=== PATIENT | female | born 1960 | race Caucasian/White ===

== ENCOUNTER 2018-06-28 21:07 | Inpatient (IN) | payer BC, OTHER ==
[~2018-06-28] VITALS: Ht 162.6 cm; Wt 34.1 kg
[~2018-06-28 21:07] MED LIST: ATARAX 25MG25 MG; BACTROBAN15 GM TOP; CLINDAMYCIN HC150 MG PO; FIORINAL CAPSU1 EACH PO; LEVAQUIN500 MG PO; LIDOCAINE HCL 2% LOCAL INJ 5 ML SDV VIAL INJ ONE; PHENERGAN25 M2 RC; PHENYLEPHRINE HCL 1% 10 MG/ML VIAL ONE; PROPOFOL IV EMULSION 10 MG/ML 20 ML VIAL ONE; ROCURONIUM BROMIDE 10 MG/ML 5ML VIAL ONE; SEVOFLURANE INHAL SOLN 250 ML PEN BTL ONE; SUCCINYLCHOLINE 200 MG/10 ML SYR ONE; TYLENOL # 31 EA PO; XIFAXAN550 MG; Z.0.LASIX40 MG PO; Z.0.NEXIUM40 MG PO; [UNRECOGNIZED DRUG - OTHER] PO
--- OUTSIDE RECORDS SUMMARY | 2018-06-28 21:11 | XMS REPORT | Clinical Summary ---
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 Disp. Refills Start End Date Status Date promethazine (PHENERGAN) Take 25 mg by mouth every Active 25 MG tablet 6 (six) hours as needed for nausea or vomiting. auumvglzlv-meldcle-rsgkes Take 1 capsule by mouth Active ne (FIORINAL) 50-325-40 every 6 (six) hours as mg per capsule needed for migraine. GUAIFENESIN/DEXTROMETHORP Take 1 tablet by mouth 4 Active SANCHEZ (SAFE TUSSIN DM ORAL) (four) times a day as needed. diphenhydrAMINE Take 25 mg by mouth every Active (BENADRYL) 25 mg tablet 8 (eight) hours as needed for itching or sleep. propranolol (INDERAL) 10 Take 10 mg by mouth 2 07/12/20 Discontin MG tablet (two) times a day as 17 ued needed. spironolactone Take 25 mg by mouth 4 07/12/20 Discontin (ALDACTONE) 25 MG tablet (four) times a day. 17 ued torsemide (DEMADEX) 10 MG Take 10 mg by mouth 4 07/12/20 Discontin tablet (four) times a day. 17 ued riFAXimin (XIFAXAN) 550 Take 550 mg by mouth 07/12/20 Discontin mg tablet daily. 17 ued traMADol (ULTRAM) 50 mg Take 1 tablet (50 mg 30 tablet 0 07/12/20 07/22/20 tablet total) by mouth every 6 17 17 (six) hours as needed for moderate pain for up to 10 days. furosemide (LASIX) 40 mg Take 1 tablet (40 mg 30 tablet 0 07/12/20 08/11/20 tablet total) by mouth daily for 17 17 30 days. spironolactone Take 4 tablets (100 mg 120 tablet 0 07/12/20 08/11/20 (ALDACTONE) 25 MG tablet total) by mouth daily for 17 17 30 days. pantoprazole (PROTONIX) Take 1 tablet (40 mg 60 tablet 0 07/12/20 08/11/20 40 MG EC tablet total) by mouth 2 (two) 17 17 times a day for 30 days. riFAXimin (XIFAXAN) 550 Take 1 tablet (550 mg 60 tablet 0 07/12/20 08/11/20 mg tablet total) by mouth 2 (two) 17 17 times a day for 30 days. Active Problems Problem Noted Date Gastrointestinal hemorrhage with hematemesis 07/06/2017 Encounters Date Type Specialty Care Team Description 07/08/2017 Procedure Pass General Internal Medicine 07/07/2017 Anesthesia Surgical Intensive Care Pedro Mejia MD Event 07/07/2017 Procedure Pass Gastroenterology 07/07/2017 Surgery Gastroenterology Arturo Jung MD ESOPHAGOGASTRODUODENOSCOP Y (EGD) 07/06/2017 [facility] General Internal Medicine Jeniffer Marrero MD Gastrointestinal - Encounter Lock, Malaika Agustin MD hemorrhage with 07/12/2017 hematemesis (Primary Dx); Secondary biliary cirrhosis; Anemia, unspecified type after 06/27/2017 Immunizations Name Dates Previously Given Next Due Pneumococcal Conjugate 07/07/2017 [facility] Social History Tobacco Use Types Packs/Day Years Used Date Current Some Day Smoker 1 Alcohol Use Drinks/Week oz/Week Comments No Sex Assigned at Date Recorded Not on file Last Filed Vital Signs Vital Sign Reading Time Taken Blood Pressure 98/54 07/12/2017 8:48 AM CDT Pulse 72 07/12/2017 8:48 AM CDT Temperature 36.1 C (97 F) 07/12/2017 8:48 AM CDT Respiratory Rate 16 07/12/2017 8:48 AM CDT Oxygen Saturation 99% 07/12/2017 8:48 AM CDT Inhaled Oxygen - - Concentration Weight 43.9 kg (96 lb .2 oz) 07/12/2017 6:55 AM CDT Height 162.6 cm (5' 4") 07/06/2017 8:06 PM CDT Body Mass Index 16.6 07/12/2017 6:55 AM CDT Plan of Treatment Health Maintenance Due Date Last Done Comments CERVICAL CANCER SCREENING 01/13/1981 BREAST CANCER SCREENING 01/13/2010 COLON CANCER SCREENING 01/13/2010 SHINGRIX VACCINE (#1) 01/13/2010 INFLUENZA VACCINE 04/08/2018 Procedures Procedure Name Priority Date/Time Associated Diagnosis Comments TRANSFUSE CRYOPRECIPITATE STAT 05/13/2018 5:43 PM CDT TRANSFUSE CRYOPRECIPITATE STAT 05/13/2018 5:43 PM CDT TRANSFUSE CRYOPRECIPITATE STAT 05/13/2018 5:43 PM CDT TRANSFUSE CRYOPRECIPITATE STAT 05/13/2018 5:43 PM CDT TRANSFUSE RED BLOOD CELLS STAT 05/13/2018 5:43 PM CDT TRANSFUSE CRYOPRECIPITATE STAT 05/13/2018 5:43 PM CDT TRANSFUSE CRYOPRECIPITATE STAT 05/13/2018 5:43 PM CDT TRANSFUSE PLATELETS Routine 05/13/2018 5:43 PM CDT TRANSFUSE RED BLOOD CELLS Routine 05/13/2018 5:43 PM CDT TRANSFUSE RED BLOOD CELLS Routine 05/13/2018 5:43 PM CDT TRANSFUSE RED BLOOD CELLS STAT 05/13/2018 5:43 PM CDT TRANSFUSE RED BLOOD CELLS STAT 05/13/2018 5:43 PM CDT OR INSERT NON-TUNNEL CV Routine 08/06/2017 Gastrointestinal Results for this CATH 9:10 PM SUCTION PLATE [employer]ER hemorrhage with procedure are in the hematemesis results section. POC GLUCOSE Routine 07/12/2017 Results for this 8:41 AM CDT procedure are in the results section. SMEAR REVIEW Routine 07/12/2017 Results for this 6:02 AM CDT procedure are in the results section. PROTHROMBIN TIME WITH INR Routine 07/12/2017 Results for this 6:02 AM CDT procedure are in the results section. ZZESTIMATED GFR Routine 07/12/2017 Results for this 6:02 AM CDT procedure are in the results section. BASIC METABOLIC PANEL Routine 07/12/2017 Results for this 6:02 AM CDT procedure are in the results section. HC COMPLETE BLD COUNT Routine 07/12/2017 Results for this W/AUTO DIFF 6:02 AM CDT procedure are in the results section. POC GLUCOSE Routine 07/11/2017 Results for this 12:23 PM CDT procedure are in the results section. POC GLUCOSE Routine 07/11/2017 Results for this 8:07 AM CDT procedure are in the results section. SMEAR REVIEW Routine 07/11/2017 Results for this 5:30 AM CDT procedure are in the results section. PROTHROMBIN TIME WITH INR Routine 07/11/2017 Results for this 5:30 AM CDT procedure are in the results section. ZZESTIMATED GFR Routine 07/11/2017 Results for this 5:30 AM CDT procedure are in the results section. BASIC METABOLIC PANEL Routine 07/11/2017 Results for this 5:30 AM CDT procedure are in the results section. HC COMPLETE BLD COUNT Routine 07/11/2017 Results for this W/AUTO DIFF 5:30 AM CDT procedure are in the results section. XR PANOREX Routine 07/10/2017 Results for this 5:27 PM CDT procedure are in the results section. GRAM STAIN Routine 07/10/2017 Results for this 4:00 PM CDT procedure are in the results section. URINE CULTURE Routine 07/10/2017 Results for this 4:00 PM CDT procedure are in the results section. MANUAL DIFFERENTIAL Routine 07/10/2017 Results for this 4:11 AM CDT procedure are in the results section. ZZESTIMATED GFR Routine 07/10/2017 Results for this 4:11 AM CDT procedure are in the results section. PROTHROMBIN TIME WITH INR Routine 07/10/2017 Results for this 4:11 AM CDT procedure are in the results section. PARTIAL THROMBOPLASTIN Routine 07/10/2017 Results for this TIME (PTT) 4:11 AM CDT procedure are in the results section. PHOSPHORUS LEVEL Routine 07/10/2017 Results for this 4:11 AM CDT procedure are in the results section. MAGNESIUM LEVEL Routine 07/10/2017 Results for this 4:11 AM CDT procedure are in the results section. HEPATIC FUNCTION PANEL Routine 07/10/2017 Results for this 4:11 AM CDT procedure are in the results section. CBC WITH PLATELET AND Routine 07/10/2017 Results for this DIFFERENTIAL 4:11 AM CDT procedure are in the results section. BASIC METABOLIC PANEL Routine 07/10/2017 Results for this 4:11 AM CDT procedure are in the results section. POC GLUCOSE Routine 07/09/2017 Results for this 1:21 PM CDT procedure are in the results section. XR CHEST 1 VW PORTABLE STAT 07/09/2017 Results for this 7:34 AM CDT procedure are in the results section. SMEAR REVIEW Routine 07/09/2017 Results for this 12:37 AM CDT procedure are in the results section. ZZESTIMATED GFR Routine 07/09/2017 Results for this 12:37 AM CDT procedure are in the results section. LACTIC ACID LEVEL Routine 07/09/2017 Results for this 12:37 AM CDT procedure are in the results section. PARTIAL THROMBOPLASTIN Routine 07/09/2017 Results for this TIME (PTT) 12:37 AM CDT procedure are in the results section. PROTHROMBIN TIME WITH INR Routine 07/09/2017 Results for this 12:37 AM CDT procedure are in the results section. PHOSPHORUS LEVEL Routine 07/09/2017 Results for this 12:37 AM CDT procedure are in the results section. MAGNESIUM LEVEL Routine 07/09/2017 Results for this 12:37 AM CDT procedure are in the results section. HEPATIC FUNCTION PANEL Routine 07/09/2017 Results for this 12:37 AM CDT procedure are in the results section. HC COMPLETE BLD COUNT Routine 07/09/2017 Results for this W/AUTO DIFF 12:37 AM CDT procedure are in the results section. BASIC METABOLIC PANEL Routine 07/09/2017 Results for this 12:37 AM CDT procedure are in the results section. POC GLUCOSE Routine 07/08/2017 Results for this 9:44 PM CDT procedure are in the results section. MRI ABDOMEN W WO CONTRAST Routine 07/08/2017 Results for this 5:25 PM CDT procedure are in the results section. SMEAR REVIEW Timed 07/08/2017 Results for this 11:35 AM CDT procedure are in the results section. ZZESTIMATED GFR Timed 07/08/2017 Results for this 11:35 AM CDT procedure are in the results section. LACTIC ACID LEVEL Timed 07/08/2017 Results for this 11:35 AM CDT procedure are in the results section. FIBRINOGEN Timed 07/08/2017 Results for this 11:35 AM CDT procedure are in the results section. PARTIAL THROMBOPLASTIN Timed 07/08/2017 Results for this TIME (PTT) 11:35 AM CDT procedure are in the results section. PROTHROMBIN TIME WITH INR Timed 07/08/2017 Results for this 11:35 AM CDT procedure are in the results section. BASIC METABOLIC PANEL Timed 07/08/2017 Results for this 11:35 AM CDT procedure are in the results section. HC COMPLETE BLD COUNT Timed 07/08/2017 Results for this W/AUTO DIFF 11:35 AM CDT procedure are in the results section. XR CHEST 1 VW PORTABLE STAT 07/08/2017 Results for this 7:11 AM CDT procedure are in the results section. POC GLUCOSE Routine 07/08/2017 Results for this 4:54 AM CDT procedure are in the results section. ALPHA FETOPROTEIN Routine 07/08/2017 Results for this 3:44 AM CDT procedure are in the results section. SMEAR REVIEW Routine 07/08/2017 Results for this 3:25 AM CDT procedure are in the results section. THROMBOELASTOGRAPH Routine 07/08/2017 Results for this 3:25 AM CDT procedure are in the results section. ZZESTIMATED GFR Routine 07/08/2017 Results for this 3:25 AM CDT procedure are in the results section. PROTHROMBIN TIME WITH INR Routine 07/08/2017 Results for this 3:25 AM CDT procedure are in the results section. HEPATIC FUNCTION PANEL Routine 07/08/2017 Results for this 3:25 AM CDT procedure are in the results section. HC COMPLETE BLD COUNT Routine 07/08/2017 Results for this W/AUTO DIFF 3:25 AM CDT procedure are in the results section. BASIC METABOLIC PANEL Routine 07/08/2017 Results for this 3:25 AM CDT procedure are in the results section. MAGNESIUM LEVEL Routine 07/08/2017 Results for this 3:25 AM CDT procedure are in the results section. PHOSPHORUS LEVEL Routine 07/08/2017 Results for this 3:25 AM CDT procedure are in the results section. PARTIAL THROMBOPLASTIN Routine 07/08/2017 Results for this TIME (PTT) 3:25 AM CDT procedure are in the results section. HEPATITIS C VIRUS Routine 07/08/2017 Results for this QUANTITATIVE BY PCR 3:00 AM CDT procedure are in the results section. TRANSFUSE PLATELETS STAT 07/08/2017 2:18 AM CDT POC GLUCOSE Routine 07/08/2017 Results for this 12:32 AM CDT procedure are in the results section. SMEAR REVIEW STAT 07/07/2017 Results for this 9:35 PM CDT procedure are in the results section. THROMBOELASTOGRAPH STAT 07/07/2017 Results for this 9:35 PM CDT procedure are in the results section. HC COMPLETE BLD COUNT STAT 07/07/2017 Results for this W/AUTO DIFF 9:35 PM CDT procedure are in the results section. POC GLUCOSE Routine 07/07/2017 Results for this 9:11 PM CDT procedure are in the results section. US ABDOMINAL DOPPLER Routine 07/07/2017 Results for this 4:55 PM CDT procedure are in the results section. US ABDOMEN COMPLETE Routine 07/07/2017 Results for this 4:55 PM CDT procedure are in the results section. ESOPHAGOGASTRODUODENOSCOP 07/07/2017 Gastrointestinal Y (EGD) 4:30 PM CDT hemorrhage with hematemesis SMEAR REVIEW Timed 07/07/2017 Results for this 2:40 PM CDT procedure are in the results section. HC COMPLETE BLD COUNT Timed 07/07/2017 Results for this W/AUTO DIFF 2:40 PM CDT procedure are in the results section. POC GLUCOSE Routine 07/07/2017 Results for this 11:37 AM CDT procedure are in the results section. SMEAR REVIEW Timed 07/07/2017 Results for this 9:36 AM CDT procedure are in the results section. HC COMPLETE BLD COUNT Timed 07/07/2017 Results for this W/AUTO DIFF 9:36 AM CDT procedure are in the results section. XR CHEST 1 VW PORTABLE STAT 07/07/2017 Results for this 8:58 AM CDT procedure are in the results section. POC GLUCOSE Routine 07/07/2017 Results for this 8:46 AM CDT procedure are in the results section. POC GLUCOSE Routine 07/07/2017 Results for this 5:11 AM CDT procedure are in the results section. SMEAR REVIEW STAT 07/07/2017 Results for this 5:00 AM CDT procedure are in the results section. FIBRINOGEN STAT 07/07/2017 Results for this 5:00 AM CDT procedure are in the results section. PROTHROMBIN TIME WITH INR STAT 07/07/2017 Results for this 5:00 AM CDT procedure are in the results section. HC COMPLETE BLD COUNT STAT 07/07/2017 Results for this W/AUTO DIFF 5:00 AM CDT procedure are in the results section. BLOOD CULTURE, AEROBIC & Routine 07/07/2017 Results for this ANAEROBIC 5:00 AM CDT procedure are in the results section. ZZESTIMATED GFR STAT 07/07/2017 Results for this 3:35 AM CDT procedure are in the results section. LACTIC ACID LEVEL STAT 07/07/2017 Results for this 3:35 AM CDT procedure are in the results section. COMPREHENSIVE METABOLIC STAT 07/07/2017 Results for this PANEL 3:35 AM CDT procedure are in the results section. IONIZED CALCIUM STAT 07/07/2017 Results for this 3:35 AM CDT procedure are in the results section. PHOSPHORUS LEVEL STAT 07/07/2017 Results for this 3:35 AM CDT procedure are in the results section. MAGNESIUM LEVEL STAT 07/07/2017 Results for this 3:35 AM CDT procedure are in the results section. BLOOD CULTURE, AEROBIC & Routine 07/07/2017 Results for this ANAEROBIC 3:20 AM CDT procedure are in the results section. POC GLUCOSE Routine 07/07/2017 Results for this 1:17 AM CDT procedure are in the results section. OR CRITICAL CARE, ADDL 30 Routine 07/07/2017 Results for this MIN 1:05 AM CDT procedure are in the results section. OR CRITICAL CARE, E/M Routine 07/07/2017 Results for this 30-74 MINUTES 1:05 AM CDT procedure are in the results section. ECG 12-LEAD STAT 07/06/2017 Results for this 9:04 PM CDT procedure are in the results section. PREPARE RBC Timed 07/06/2017 Results for this 8:58 PM CDT procedure are in the results section. PREPARE CRYOPRECIPITATE Timed 07/06/2017 Results for this 8:58 PM CDT procedure are in the results section. PREPARE PLATELET PHERESIS Timed 07/06/2017 Results for this 8:58 PM CDT procedure are in the results section. PREPARE CRYOPRECIPITATE Timed 07/06/2017 Results for this 8:58 PM CDT procedure are in the results section. PREPARE PLATELET PHERESIS Timed 07/06/2017 Results for this 8:58 PM CDT procedure are in the results section. PREPARE RBC Timed 07/06/2017 Results for this 8:58 PM CDT procedure are in the results section. PREPARE RBC Timed 07/06/2017 8:58 PM CDT PREPARE RBC Timed 07/06/2017 Results for this 8:58 PM CDT procedure are in the results section. SMEAR REVIEW STAT 07/06/2017 Results for this 8:58 PM CDT procedure are in the results section. ZZESTIMATED GFR STAT 07/06/2017 Results for this 8:58 PM CDT procedure are in the results section. LIPASE LEVEL STAT 07/06/2017 Results for this 8:58 PM CDT procedure are in the results section. AMYLASE LEVEL STAT 07/06/2017 Results for this 8:58 PM CDT procedure are in the results section. LACTIC ACID LEVEL STAT 07/06/2017 Results for this 8:58 PM CDT procedure are in the results section. HEPATIC FUNCTION PANEL STAT 07/06/2017 Results for this 8:58 PM CDT procedure are in the results section. BASIC METABOLIC PANEL STAT 07/06/2017 Results for this 8:58 PM CDT procedure are in the results section. TYPE AND SCREEN Timed 07/06/2017 Results for this 8:58 PM CDT procedure are in the results section. PARTIAL THROMBOPLASTIN STAT 07/06/2017 Results for this TIME (PTT) 8:58 PM CDT procedure are in the results section. PROTHROMBIN TIME WITH INR STAT 07/06/2017 Results for this 8:58 PM CDT procedure are in the results section. HC COMPLETE BLD COUNT STAT 07/06/2017 Results for this W/AUTO DIFF 8:58 PM CDT procedure are in the results section. XR CHEST 1 VW PORTABLE STAT 07/06/2017 Results for this 8:43 PM CDT procedure are in the results section. after 06/27/2017 Results * Transfuse cryoprecipitate (05/13/2018 5:43 PM) Only the most recent of 6 results within the time period is included. * Transfuse platelets (05/13/2018 5:43 PM) Only the most recent of 2 results within the time period is included. * Transfuse RBC (05/13/2018 5:43 PM) Only the most recent of 5 results within the time period is included. * CENTRAL LINE (08/06/2017 9:10 PM) Narrative Performed At Dominique Tillman MD 08/06/20179:10 PM Central Line Insertion Performed by: TRANG CAROLINA Authorized by: MALAIKA BRITTON Consent: Consent obtained:Written Consent given by:Patient Risks discussed:Infection, arterial puncture, incorrect placement, nerve damage, pneumothorax and bleeding Alternatives discussed:No treatment and delayed treatment [place] protocol: Procedure explained and questions answered to patient or proxy's satisfaction: yes Relevant documents present and verified: yes Test results available and properly labeled: yes Imaging studies available: yes Required blood products, implants, devices, and special equipment available: yes Site/side marked: yes Immediately prior to procedure, a time out was called: yes Patient identity confirmed:Verbally with patient, arm band, provided demographic data and hospital-assigned identification number Pre-procedure details: Hand hygiene: Hand hygiene performed prior to insertion Sterile barrier technique: All elements of maximal sterile technique followed Skin preparation:ChloraPrep Anesthesia (see MAR for exact dosages): Anesthesia method:Local infiltration Local anesthetic:Lidocaine 1% w/o epi Procedure details: Catheter type:Triple lumen Catheter size:7 Fr Catheter length (cm):15 CM Catheter site: internal jugular vein Catheter Site Laterality:Right Landmarks identified: yes Ultrasound guidance: yes Sterile ultrasound techniques: Sterile gel and sterile probe covers were used Number of attempts:1 Successful placement: yes Post-procedure details: Post-procedure:Dressing applied and line sutured Assessment:Blood return through all ports, no pneumothorax on x-ray, placement verified by x-ray and free fluid flow Patient tolerance of procedure:Tolerated well, no immediate complications * POC glucose (07/12/2017 8:41 AM) Only the most recent of 12 results within the time period is included. POC glucose 106 (H) 65 - 99 mg/dL [facility] DEPARTMENT OF Comment: PATHOLOGY AND No Action Needed GENOMIC MEDICINE Meter ID: [id number] Burlap Roll Coverer: Jonathon Ortega Performing Organization Address [facility] [place], [place] Phone Number [facility] [place] [address] PATHOLOGY AND GENOMIC MEDICINE * Smear review (07/12/2017 6:02 AM) Only the most recent of 10 results within the time period is included. Platelet slide review Mkd decreased (A) [facility] DEPARTMENT OF PATHOLOGY AND GENOMIC MEDICINE Anisocytosis Moderate [facility] DEPARTMENT OF PATHOLOGY AND GENOMIC MEDICINE Polychromasia Moderate [facility] DEPARTMENT OF PATHOLOGY AND GENOMIC MEDICINE Ovalocytes Moderate [facility] DEPARTMENT OF PATHOLOGY AND GENOMIC MEDICINE Performing Organization Address [facility] Phone Number [address] [address] PATHOLOGY AND GENOMIC MEDICINE * Estimated GFR (07/12/2017 6:02 AM) Only the most recent of 8 results within the time period is included. GFR Non Af Amer >90 mL/min/1.73 m2 [facility] DEPARTMENT OF PATHOLOGY AND GENOMIC MEDICINE GFR Af Amer >90 mL/min/1.73 m2 [facility] DEPARTMENT OF Comment: PATHOLOGY AND Chronic kidney disease: <60 GENOMIC MEDICINE mL/min/1.73m2 Kidney failure: <15 mL/min/1.73m2 The estimated GFR is calculated from the IDMS-traceable Modification of Diet in Renal Disease Equation. The accuracy of the calculation is poor when the creatinine is normal. Calculated values >90 mL/min/1.73m2 are not reported. This equation has not been validated in children (<18 years), women, the elderly (>70 years), or ethnic groups other than Caucasians and Americans. Specimen Plasma specimen Performing Organization Address City/[facility] [place] [address] PATHOLOGY AND [facility] [facility] * Prothrombin time with INR (07/12/2017 6:02 AM) Only the most recent of 8 results within the time period is included. Prothrombin time 19.7 (H) 12.0 - 15.0 sec [facility] DEPARTMENT OF PATHOLOGY AND [facility] INR 1.6 [facility] DEPARTMENT OF Comment: PATHOLOGY AND The International Normalized GENOMIC MEDICINE Ratio (INR) is a therapeutic monitoring tool for patients who are stable on oral anticoagulant therapy. An INR of 2.0-3.0 is suggested for deep vein thrombosis/pulmonary embolism. Specimen Blood Performing Organization Address City/[facility] Phone Number [facility] OF [address] [place] [address] PATHOLOGY AND [facility] [facility] * CBC with platelet and differential (07/12/2017 6:02 AM) Only the most recent of 11 results within the time period is included. WBC 2.52 (L) 4.50 - 11.00 k/uL [facility] DEPARTMENT OF PATHOLOGY AND GENOMIC MEDICINE RBC 3.48 (L) 4.20 - 5.50 m/uL [facility] DEPARTMENT OF PATHOLOGY AND GENOMIC MEDICINE HGB 9.2 (L) 12.0 - 16.0 g/dL [facility] DEPARTMENT OF PATHOLOGY AND GENOMIC MEDICINE HCT 28.9 (L) 37.0 - 47.0 % [facility] DEPARTMENT OF PATHOLOGY AND GENOMIC MEDICINE MCV 83.0 82.0 - 100.0 fL [facility] DEPARTMENT OF PATHOLOGY AND GENOMIC MEDICINE MCH 26.4 (L) 27.0 - 34.0 pg [facility] DEPARTMENT OF PATHOLOGY AND GENOMIC MEDICINE MCHC 31.8 31.0 - 37.0 g/dL [facility] DEPARTMENT OF PATHOLOGY AND GENOMIC MEDICINE RDW - SD 61.7 (H) 37.0 - 55.0 fL [facility] DEPARTMENT OF PATHOLOGY AND GENOMIC MEDICINE MPV SEE COMMENTComment: No report 8.8 - 13.2 fL [facility] DEPARTMENT OF PATHOLOGY AND GENOMIC MEDICINE Platelet count 37 (L) 150 - 400 k/uL [facility] DEPARTMENT OF PATHOLOGY AND GENOMIC MEDICINE Nucleated RBC 0.00 /100 WBC [facility] DEPARTMENT OF PATHOLOGY AND GENOMIC MEDICINE Neutrophils 67.0 39.0 - 69.0 % [facility] DEPARTMENT OF PATHOLOGY AND GENOMIC MEDICINE Lymphocytes 17.1 (L) 25.0 - 45.0 % [facility] DEPARTMENT OF PATHOLOGY AND GENOMIC MEDICINE Monocytes 11.5 (H) 0.0 - 10.0 % [facility] DEPARTMENT OF PATHOLOGY AND GENOMIC MEDICINE Eosinophils 3.2 0.0 - 5.0 % [facility] DEPARTMENT OF PATHOLOGY AND GENOMIC MEDICINE Basophils 0.8 0.0 - 1.0 % [facility] DEPARTMENT OF PATHOLOGY AND GENOMIC MEDICINE Immature granulocytes 0.4Comment: "Immature 0.0 - 1.0 % [facility] DEPARTMENT OF granulocytes" (promyelocytes, PATHOLOGY AND myelocytes, metamyelocytes) [facility] Specimen Blood Performing Organization Address City/State/Zipcode Phone Number [facility] DEPARTMENT OF [address] [place] [address] PATHOLOGY AND GENOMIC MEDICINE * Basic metabolic panel (07/12/2017 6:02 AM) Only the most recent of 7 results within the time period is included. Sodium 142 135 - 148 mEq/L [facility] [facility] Potassium 3.9 3.5 - 5.0 mEq/L [facility] DEPARTMENT OF PATHOLOGY AND GENOMIC MEDICINE Chloride 105 98 - 112 mEq/L [facility] DEPARTMENT OF PATHOLOGY AND GENOMIC MEDICINE CO2 24 24 - 31 mEq/L [facility] DEPARTMENT OF PATHOLOGY AND GENOMIC MEDICINE Anion gap 13 7 - 15 mEq/L [facility] DEPARTMENT OF Comment: PATHOLOGY AND Starting from December [facility] , anion gap calculation no longer incorporates potassium. Please note the change. BUN 13 6 - 20 mg/dL [facility] DEPARTMENT OF PATHOLOGY AND GENOMIC MEDICINE Creatinine 0.6 0.5 - 0.9 mg/dL [facility] DEPARTMENT OF PATHOLOGY AND GENOMIC MEDICINE Glucose 128 (H) 65 - 99 mg/dL [facility] DEPARTMENT OF PATHOLOGY AND GENOMIC MEDICINE Calcium 8.0 (L) 8.3 - 10.2 mg/dL [facility] DEPARTMENT OF PATHOLOGY AND GENOMIC MEDICINE Specimen Plasma specimen Performing Organization Address City/[facility]/Zipcode Phone Number [facility] DEPARTMENT OF [address] [place] [address] PATHOLOGY AND GENOMIC MEDICINE * XR Panorex (07/10/2017 5:27 PM) Narrative Performed At EXAMINATION:XR PANOREX [facility] CLINICAL HISTORY:evaluate dental decay IMPRESSION: There are multiple missing teeth. There is a nonspecific periapical lucencies around the remaining left maxillary anterior molar tooth. The study is limited due to motion artifact. [id number] Procedure Note Interface, Radiology Results Incoming - 07/10/2017 5:41 PM CDT EXAMINATION: XR PANOREX CLINICAL HISTORY: evaluate dental decay IMPRESSION: There are multiple missing teeth. There is a nonspecific periapical lucencies around the remaining left maxillary anterior molar tooth. The study is limited due to motion artifact. [id number] Performing Organization Address City/[facility]/Zipcode Phone Number [facility] [address] [place] [address] * Gram stain (07/10/2017 4:00 PM) Gram stain result No WBC's or organisms seen. [facility] DEPARTMENT OF Comment: PATHOLOGY AND Specimen Information GENOMIC MEDICINE Specimen Source: Urine Specimen Site: See UA Specimen Urine Performing Organization Address City/[facility]/Zipcode Phone Number [facility] [place] [address] PATHOLOGY AND GENOMIC MEDICINE * Urine culture (07/10/2017 4:00 PM) Urine culture isolate Gram positive joel [facility] DEPARTMENT OF <10-1 cfu/ml PATHOLOGY AND (A) GENOMIC MEDICINE Comment: Specimen Information Specimen Source: Urine Specimen Site: See UA Specimen Urine Performing Organization Address [facility]/Zipcode Phone Number [facility] [place] [address] PATHOLOGY AND GENOMIC MEDICINE * Manual differential (07/10/2017 4:11 AM) Manual differential PERFORMED [facility] DEPARTMENT OF PATHOLOGY AND GENOMIC MEDICINE Neutrophils 80.0 (H) 39.0 - 69.0 % [facility] DEPARTMENT OF PATHOLOGY AND GENOMIC MEDICINE Lymphocytes 11.0 (L) 25.0 - 45.0 % [facility] DEPARTMENT OF PATHOLOGY AND GENOMIC MEDICINE Monocytes 4.0 0.0 - 10.0 % [facility] DEPARTMENT OF PATHOLOGY AND GENOMIC MEDICINE Eosinophils 4.0 0.0 - 5.0 % [facility] DEPARTMENT OF PATHOLOGY AND GENOMIC MEDICINE Basophils 1.0 0.0 - 1.0 % [facility] DEPARTMENT OF PATHOLOGY AND GENOMIC MEDICINE Metamyelocytes 0 % [facility] DEPARTMENT OF PATHOLOGY AND GENOMIC MEDICINE Promyelocytes 0 % [facility] DEPARTMENT OF PATHOLOGY AND GENOMIC MEDICINE Platelet slide review Mkd decreased (A) [facility] DEPARTMENT OF PATHOLOGY AND GENOMIC MEDICINE Anisocytosis Moderate [facility] DEPARTMENT OF PATHOLOGY AND GENOMIC MEDICINE Polychromasia Moderate [facility] DEPARTMENT OF PATHOLOGY AND GENOMIC MEDICINE Tear drop cells Occasional [facility] DEPARTMENT OF PATHOLOGY AND GENOMIC MEDICINE Schistocytes Occasional [facility] DEPARTMENT OF PATHOLOGY AND GENOMIC MEDICINE Ovalocytes Moderate [facility] DEPARTMENT OF PATHOLOGY AND GENOMIC MEDICINE Acanthocytes Occasional [facility] DEPARTMENT OF PATHOLOGY AND GENOMIC MEDICINE Performing Organization Address [facility] [place], [place] [address] PATHOLOGY AND GENOMIC MEDICINE * Partial thromboplastin time, activated (07/10/2017 4:11 AM) Only the most recent of 5 results within the time period is included. PTT 32.8 23.0 - 36.0 sec [facility] DEPARTMENT OF Comment: PATHOLOGY AND PTT therapeutic range for [facility] unfractionated heparin is 61.0-112.0 seconds which corresponds to Anti-Xa 0.3-0.7 U/ml. Specimen Blood Performing Organization Address [facility] [place] [address] PATHOLOGY AND [facility] MEDICINE * Phosphorus level (07/10/2017 4:11 AM) Only the most recent of 4 results within the time period is included. Phosphorus 1.8 (L) 2.4 - 4.5 mg/dL [facility] DEPARTMENT OF PATHOLOGY AND GENOMIC MEDICINE Specimen Plasma specimen Performing Organization Address City/[facility] [place] [address] PATHOLOGY AND [facility] MEDIC[facility] * Magnesium level (07/10/2017 4:11 AM) Only the most recent of 4 results within the time period is included. Magnesium 2.0 1.6 - 2.6 mg/dL [facility] DEPARTMENT OF PATHOLOGY AND GENOMIC MEDICINE Specimen Plasma specimen Performing Organization Address [facility] [place] [address] PATHOLOGY AND GENOMIC MEDICINE * Hepatic function panel (07/10/2017 4:11 AM) Only the most recent of 4 results within the time period is included. Albumin 2.9 (L) 3.5 - 5.0 g/dL [facility] DEPARTMENT OF PATHOLOGY AND GENOMIC MEDICINE Total bilirubin 1.1 0.0 - 1.2 mg/dL [facility] DEPARTMENT OF PATHOLOGY AND GENOMIC MEDICINE Bilirubin direct 0.4 (H) 0.0 - 0.3 mg/dL [facility] DEPARTMENT OF PATHOLOGY AND GENOMIC MEDICINE Alkaline phosphatase 52 35 - 104 U/L [facility] DEPARTMENT OF PATHOLOGY AND GENOMIC MEDICINE Protein 5.7 (L) 6.3 - 8.3 g/dL [facility] DEPARTMENT OF Comment: PATHOLOGY AND [place] GENOMIC MEDICINE 4.6-7.0 g/dL 1 week 4.4-7.6 g/dL 7 months-1year 5.1-7.3 g/dL 1-2 years5.6-7 .5 g/dL >3 years6.0-8 .0 g/dL 18-150 6.3-8.3 g/dL ALT 11 5 - 50 U/L [facility] DEPARTMENT OF PATHOLOGY AND GENOMIC MEDICINE AST 23 10 - 35 U/L [facility] DEPARTMENT OF PATHOLOGY AND GENOMIC MEDICINE Specimen Plasma specimen Performing Organization Address [facility] Phone Number [facility] OF [address] [place] [address] PATHOLOGY AND GENOMIC MEDICINE * XR Chest 1 Vw Portable (07/09/2017 7:34 AM) Only the most recent of 4 results within the time period is included. Narrative Performed At EXAMINATION: XR CHEST 1 VW PORTABLE [facility] INDICATION: Ventilator Patient, right IJ CVC placement COMPARISON: 07/08/2017 IMPRESSION: Right jugular venous catheter with tip near the superior cavoatrial junction. No pneumothorax. Stable vascular congestion and interstitial opacities in the lungs probably representing edema. Cardiac silhouette is unchanged. No pneumothorax. [id number] Procedure Note Interface, Radiology Results Incoming - 07/09/2017 7:40 AM CDT EXAMINATION: XR CHEST 1 VW PORTABLE INDICATION: Ventilator Patient, right IJ CVC placement COMPARISON: 07/08/2017 IMPRESSION: Right jugular venous catheter with tip near the superior cavoatrial junction. No pneumothorax. Stable vascular congestion and interstitial opacities in the lungs probably representing edema. Cardiac silhouette is unchanged. No pneumothorax. [id number] Performing Organization Address City/State/Zipcode Phone Number [facility] [address] [place] [address] * Lactic acid level (07/09/2017 12:37 AM) Only the most recent of 4 results within the time period is included. Lactic acid 1.3 0.5 - 2.2 mmol/L [facility] DEPARTMENT OF PATHOLOGY AND GENOMIC MEDICINE Specimen Plasma specimen Performing Organization Address City/[facility]/Zipcode Phone Number [facility] DEPARTMENT OF [address] [place] [address] PATHOLOGY AND GENOMIC MEDICINE * MRI Abdomen W Wo Contrast (07/08/2017 5:25 PM) Narrative Performed At [facility] EXAMINATION:MRI ABDOMEN W WO CONTRAST CLINICAL HISTORY:cirrhosisPV thrombosis COMPARISON:December 27, 2014 MRI, July 07, 2017 ultrasound TECHNIQUE: Multiplanar, multisequence MRI of the abdomen with and without intravenous gadolinium. FINDINGS: Liver shrunken and cirrhotic. There is no suspicious hepatic mass. Stable 2 cm T2 hyperintense lesion in segment 2 is likely hemangioma. Chronic occlusion of intrahepatic portal vein segments again demonstrated. Dilated main portal vein also now shows a small nonocclusive thrombus distally. A tiny splenic vein clot is also present. There are very large varices including splenorenal shunt. Spleen is markedly enlarged. There is moderate ascites and small pleural effusions. Gallbladder wall thickening is nonspecific in setting of cirrhosis and similar to prior. No significant biliary dilatation. Stable mild fullness of the pancreatic duct. Pancreas is atrophic. No renal or adrenal mass. Increased anasarca. IMPRESSION: 1.Liver cirrhosis without evidence of HCC. 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 Small nonocclusive thrombus in the distal main portal vein near the hilum. [facility]-[id number] Procedure Note Interface, Radiology Results Incoming - 07/08/2017 6:26 PM CDT EXAMINATION: MRI ABDOMEN W WO CONTRAST CLINICAL HISTORY: cirrhosis PV thrombosis COMPARISON: December 27, 2014 MRI, July 07, 2017 ultrasound TECHNIQUE: Multiplanar, multisequence MRI of the abdomen with and without intravenous gadolinium. FINDINGS: Liver shrunken and cirrhotic. There is no suspicious hepatic mass. Stable 2 cm T2 hyperintense lesion in segment 2 is likely hemangioma. Chronic occlusion of intrahepatic portal vein segments again demonstrated. Dilated main portal vein also now shows a small nonocclusive thrombus distally. A tiny splenic vein clot is also present. There are very large varices including splenorenal shunt. Spleen is markedly enlarged. There is moderate ascites and small pleural effusions. Gallbladder wall thickening is nonspecific in setting of cirrhosis and similar to prior. No significant biliary dilatation. Stable mild fullness of the pancreatic duct. Pancreas is atrophic. No renal or adrenal mass. Increased anasarca. IMPRESSION: 1. Liver cirrhosis without evidence of HCC. 2. 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 Small nonocclusive thrombus in the distal main portal vein near the hilum. [facility]-[id number] Performing Organization Address City/[facility]/[place] [address] * Fibrinogen (07/08/2017 11:35 AM) Only the most recent of 2 results within the time period is included. Fibrinogen 411 200 - 450 mg/dL [facility] DEPARTMENT OF PATHOLOGY AND [facility] [facility]ICINE Specimen Blood Performing Organization Address [facility] [place] [address] PATHOLOGY AND [employer] [facility] * Alpha fetoprotein (07/08/2017 3:44 AM) Alpha fetoprotein 1.7 0.0 - 8.3 ng/mL [facility] DEPARTMENT OF Comment: PATHOLOGY AND The Valarie 8000 AFP immunoassay [facility] was used. Results obtained with different assay methods or kits should not be used interchangeably and may be different. Specimen Serum Performing Organization Address [facility] [place] [address] PATHOLOGY AND [facility] [facility]IC[facility] * Thromboelastograph (07/08/2017 3:25 AM) Only the most recent of 2 results within the time period is included. TEG R time 4.4 min [facility] DEPARTMENT OF PATHOLOGY AND GENOMIC MEDICINE TEG K time 4.2 min [facility] DEPARTMENT OF PATHOLOGY AND GENOMIC MEDICINE TEG angle 54.0 Deg [facility] DEPARTMENT OF PATHOLOGY AND GENOMIC MEDICINE TEG max amplitude 44.1 mm [facility] DEPARTMENT OF PATHOLOGY AND GENOMIC MEDICINE TEG coagulation index -2.70 Index [facility] DEPARTMENT OF PATHOLOGY AND GENOMIC MEDICINE TEG fibrinolysis/30 0.0 % [facility] DEPARTMENT OF Comment: PATHOLOGY AND Reference Ranges for TEG: [facility] Test: UnitsKaoli n:Citrate Kaolin: Rmin 3.7-8.3 2.5-7.5 Kmin 0.5-3.7 0.8-2.8 AngleDeg 46.8-73.6 55.2-78.4 MA mm54.5-72. 5 50.6-69.4 Gd/sc [id number] CI Index-3.0 - 3.0-3.0 - 3.0 LY30 % 0.0 - 7.5 0.0 - 7.5 Specimen description, TEG OTHER [facility] DEPARTMENT OF PATHOLOGY AND GENOMIC MEDICINE Sample type, TEG CK [facility] DEPARTMENT OF PATHOLOGY AND GENOMIC MEDICINE TEG SP time 4.0 min [facility] DEPARTMENT OF PATHOLOGY AND GENOMIC MEDICINE TEG G 3,943.5 d/sc [facility] DEPARTMENT OF PATHOLOGY AND GENOMIC MEDICINE Specimen Plasma specimen Performing Organization Address City/[facility] Phone Number [facility] [place] [address] PATHOLOGY AND GENOMIC MEDICINE * Hepatitis C virus quantitative by PCR (07/08/2017 3:00 AM) Hepatitis C quantitative, Not-Detected Not-Detected IU/mL [facility] DEPARTMENT OF PCR PATHOLOGY AND GENOMIC MEDICINE Hepatitis C quantitative, See link below for PDF Lab [facility] DEPARTMENT OF PCR ReportComment: Case Number: PATHOLOGY AND [id number] GENOMIC MEDICINE Specimen Blood Performing Organization Address [facility] [place] [place] [address] PATHOLOGY AND GENOMIC MEDICINE * US Abdominal Doppler (07/07/2017 4:55 PM) Narrative Performed At EXAMINATION:US ABDOMINAL DOPPLER [facility] CLINICAL HISTORY:cirrhosis COMPARISON:None. TECHNIQUE: White scale, color Doppler and spectral waveform analysis of the hepatic vasculature. IMPRESSION: PORTAL VEIN:Main portal vein measures 1.5 cm, and appears dilated and tortuous. There is partial thrombus within the main portal vein.Main, right and left portal veins are patent with appropriate hepatopedal flow. HEPATIC VEINS:The middle, right and left hepatic veins and IVC are patent and demonstrate acceptable waveforms. There is dilatation of the IVC and hepatic veins suggesting right heart congestion. HEPATIC ARTERIES:The right and left hepatic arteries are identified with appropriate waveforms. SPLENIC ARTERY AND VEIN AND SMV:Splenic artery and vein and SMV are identified and are patent. Procedure Note [facility], Radiology Results Incoming - 07/07/2017 5:25 PM CDT EXAMINATION: US ABDOMINAL DOPPLER CLINICAL HISTORY: cirrhosis COMPARISON: None. TECHNIQUE: White scale, color Doppler and spectral waveform analysis of the hepatic vasculature. IMPRESSION: PORTAL VEIN: Main portal vein measures 1.5 cm, and appears dilated and tortuous. There is partial thrombus within the main portal vein. Main, right and left portal veins are patent with appropriate hepatopedal flow. HEPATIC VEINS: The middle, right and left hepatic veins and IVC are patent and demonstrate acceptable waveforms. There is dilatation of the IVC and hepatic veins suggesting right heart congestion. HEPATIC ARTERIES: The right and left hepatic arteries are identified with appropriate waveforms. SPLENIC ARTERY AND VEIN AND SMV: Splenic artery and vein and SMV are identified and are patent. Performing Organization Address City/State/Zipcode Phone Number [facility] [address] [place] [address] * US Abdomen Complete (07/07/2017 4:55 PM) Narrative Performed At EXAM: US ABDOMEN COMPLETE [facility] CLINICAL DATA:CIRRHOSIS COMPARISON: NONE. FINDINGS: 1.Visualized portions of the proximal pancreas appear intact. Intrahepatic IVC is patent. Abdominal aorta is partially seen and nonaneurysmal. 2.Liver echogenicity is heterogeneous. No focal lesions are noted. Gallbladder is distended, without stones. Sludge is noted. Gallbladder wall is thickened circumferentially in the setting of ascites. Common duct is 6 mm. 3.Kidneys measure 9 to 10 cm in length each with no mass or hydronephrosis. Spleen is enlarged measuring 18.1 cm in length. IMPRESSION: 1. Ascites and splenomegaly with heterogeneous cirrhotic appearing liver. Nonspecific appearance of gallbladder wall thickening. [facility]-[id number] Procedure Note Interface, Radiology Results Incoming - 07/07/2017 5:21 PM CDT EXAM: US ABDOMEN COMPLETE CLINICAL DATA: CIRRHOSIS COMPARISON: NONE. FINDINGS: 1. Visualized portions of the proximal pancreas appear intact. Intrahepatic IVC is patent. Abdominal aorta is partially seen and nonaneurysmal. 2. Liver echogenicity is heterogeneous. No focal lesions are noted. Gallbladder is distended, without stones. Sludge is noted. Gallbladder wall is thickened circumferentially in the setting of ascites. Common duct is 6 mm. 3. Kidneys measure 9 to 10 cm in length each with no mass or hydronephrosis. Spleen is enlarged measuring 18.1 cm in length. IMPRESSION: 1. Ascites and splenomegaly with heterogeneous cirrhotic appearing liver. Nonspecific appearance of gallbladder wall thickening. [facility]-[id number] Performing Organization Address [facility]/Zipcode Phone Number [address] [address] * Blood culture, aerobic & anaerobic (07/07/2017 5:00 AM) Only the most recent of 2 results within the time period is included. Blood culture isolate No growth after 5 days of [facility] DEPARTMENT OF incubation. PATHOLOGY AND Comment: GENOMIC MEDICINE Specimen Information Specimen Source: Blood Specimen Site: Antecubital Right Specimen Blood Performing Organization Address City/[facility] Phone Number [address] [address] PATHOLOGY AND GENOMIC MEDICINE * Ionized calcium (07/07/2017 3:35 AM) pH 7.53 [facility] DEPARTMENT OF PATHOLOGY AND GENOMIC MEDICINE Ionized calcium 1.03 (L) 1.11 - 1.32 mmol/L [facility] DEPARTMENT OF PATHOLOGY AND GENOMIC MEDICINE Specimen Plasma specimen Performing Organization Address [facility] [place] [address] PATHOLOGY AND GENOMIC MEDICINE * Comprehensive metabolic panel (07/07/2017 3:35 AM) Sodium 140 135 - 148 mEq/L [facility] DEPARTMENT OF PATHOLOGY AND GENOMIC MEDICINE Potassium 3.9 3.5 - 5.0 mEq/L [facility] DEPARTMENT OF PATHOLOGY AND GENOMIC MEDICINE Chloride 109 98 - 112 mEq/L [facility] DEPARTMENT OF PATHOLOGY AND GENOMIC MEDICINE CO2 20 (L) 24 - 31 mEq/L [facility] DEPARTMENT OF PATHOLOGY AND GENOMIC MEDICINE Anion gap 11 7 - 15 mEq/L [facility] DEPARTMENT OF Comment: PATHOLOGY AND Starting from December GENOMIC MEDICINE , anion gap calculation no longer incorporates potassium. Please note the change. BUN 26 (H) 6 - 20 mg/dL [facility] DEPARTMENT OF PATHOLOGY AND GENOMIC MEDICINE Creatinine 0.7 0.5 - 0.9 mg/dL [facility] DEPARTMENT OF PATHOLOGY AND GENOMIC MEDICINE Glucose 103 (H) 65 - 99 mg/dL [facility] DEPARTMENT OF PATHOLOGY AND GENOMIC MEDICINE Calcium 7.2 (L) 8.3 - 10.2 mg/dL [facility] DEPARTMENT OF PATHOLOGY AND GENOMIC MEDICINE Protein 4.8 (L) 6.3 - 8.3 g/dL [facility] DEPARTMENT OF Comment: PATHOLOGY AND [place] GENOMIC MEDICINE 4.6-7.0 g/dL 1 week 4.4-7.6 g/dL 7 months-1year 5.1-7.3 g/dL 1-2 years5.6-7 .5 g/dL >3 years6.0-8 .0 g/dL 18-150 6.3-8.3 g/dL Albumin 2.5 (L) 3.5 - 5.0 g/dL [facility] DEPARTMENT OF PATHOLOGY AND GENOMIC MEDICINE A/G ratio 1.1 0.7 - 3.8 [facility] DEPARTMENT OF PATHOLOGY AND GENOMIC MEDICINE Alkaline phosphatase 33 (L) 35 - 104 U/L [facility] DEPARTMENT OF PATHOLOGY AND GENOMIC MEDICINE AST 22 10 - 35 U/L [facility] DEPARTMENT OF PATHOLOGY AND GENOMIC MEDICINE ALT 10 5 - 50 U/L [facility] DEPARTMENT OF PATHOLOGY AND GENOMIC MEDICINE Total bilirubin 0.7 0.0 - 1.2 mg/dL [facility] DEPARTMENT OF PATHOLOGY AND GENOMIC MEDICINE Specimen Plasma specimen Performing Organization Address City/State/Zipcode Phone Number [facility] DEPARTMENT OF [address] [place] [address] PATHOLOGY AND GENOMIC MEDICINE * CRITICAL CARE (07/07/2017 1:05 AM) Narrative Performed At Jenifferevin Marrero MD 07/07/20171:05 AM Critical Care Performed by: JENIFFER MARRERO Authorized by: JENIFFER MARRERO Critical care provider statement: Critical care time (minutes):83 Critical care time was exclusive of:Separately billable procedures and treating other patients and teaching time Critical care was necessary to treat or prevent imminent or life-threatening deterioration of the following conditions:Circulatory failure and hepatic failure Critical care was time spent personally by me on the following activities:Development of treatment plan with patient or surrogate, discussions with consultants, discussions with primary provider, evaluation of patient's response to treatment, examination of patient, interpretation of cardiac output measurements, obtaining history from patient or surrogate, ordering and performing treatments and interventions, ordering and review of laboratory studies, ordering and review of radiographic studies, pulse oximetry, re-evaluation of patient's condition and review of old charts Dave 'yes' if you are taking over critical care for this patient from another provider.: no Comments: Pt with cirrhosis and melena and hematemasis- Protonix 80mg bolus, 8mg/hr infusion, Octreotide 75mcg bolus and 75mcg/hr infusion, 2 units PRBC transfused, IV ceftriaxone, liver consult, ICU consult, admitted for endoscopy and further management, IVF bolus * ECG 12 lead (07/06/2017 9:04 PM) Ventricular rate 92 [facility] MUSE Atrial rate 92 [facility] MUSE OR interval 138 [facility] MUSE QRSD interval 86 [facility] MUSE QT interval 390 [facility] MUSE QTC interval 482 [facility] MUSE P axis 1 59 [facility] MUSE QRS axis 1 4 [facility] MUSE T wave axis 58 [facility] MUSE EKG impression Normal sinus [facility] MUSE rhythm-Nonspecific ST and T wave abnormality-Prolonged QT-Abnormal ECG-In automated comparison with ECG of -DEC-2014 20:25,-No significant change was found- Performing Organization Address City/[facility] Phone Number [place] [phone] * Prepare platelet pheresis, 1 Units (07/06/2017 8:58 PM) Only the most recent of 2 results within the time period is included. Product name Apheresis PLT, Leukored IRR #2 [facility] DEPARTMENT OF PATHOLOGY AND GENOMIC MEDICINE Unit number [id number] [facility] DEPARTMENT OF PATHOLOGY AND GENOMIC MEDICINE Product code [id number] [facility] DEPARTMENT OF PATHOLOGY AND GENOMIC MEDICINE Dispense status Transfused [facility] DEPARTMENT OF PATHOLOGY AND GENOMIC MEDICINE Blood expiration date [id number] [facility] DEPARTMENT OF PATHOLOGY AND GENOMIC MEDICINE Blood type code 5100 [facility] DEPARTMENT OF PATHOLOGY AND GENOMIC MEDICINE Blood type O POSITIVE [facility] DEPARTMENT OF PATHOLOGY AND GENOMIC MEDICINE Performing Organization Address City/[facility] Phone Number [address] [address] PATHOLOGY AND GENOMIC MEDICINE * Prepare cryoprecipitate, 20 Units (07/06/2017 8:58 PM) Only the most recent of 2 results within the time period is included. Product name Pooled Cryoprecipitate Thawed [facility] DEPARTMENT OF PATHOLOGY AND GENOMIC MEDICINE Unit number [id number] [facility] DEPARTMENT OF PATHOLOGY AND GENOMIC MEDICINE Product code [id number] [facility] DEPARTMENT OF PATHOLOGY AND GENOMIC MEDICINE Dispense status Transfused [facility] DEPARTMENT OF PATHOLOGY AND GENOMIC MEDICINE Blood expiration date [id number] [facility] DEPARTMENT OF PATHOLOGY AND GENOMIC MEDICINE Blood type code 6200 [facility] DEPARTMENT OF PATHOLOGY AND GENOMIC MEDICINE Blood type A POSITIVE [facility] DEPARTMENT OF PATHOLOGY AND GENOMIC MEDICINE Product name Pooled Cryoprecipitate Thawed [facility] DEPARTMENT OF PATHOLOGY AND GENOMIC MEDICINE Unit number [id number] [facility] DEPARTMENT OF PATHOLOGY AND GENOMIC MEDICINE Product code [id number] [facility] DEPARTMENT OF PATHOLOGY AND GENOMIC MEDICINE Dispense status Transfused [facility] DEPARTMENT OF PATHOLOGY AND GENOMIC MEDICINE Blood expiration date [id number] [facility] DEPARTMENT OF PATHOLOGY AND GENOMIC MEDICINE Blood type code 6200 [facility] DEPARTMENT OF PATHOLOGY AND GENOMIC MEDICINE Blood type A POSITIVE [facility] DEPARTMENT OF PATHOLOGY AND GENOMIC MEDICINE Product name Pooled Cryoprecipitate Thawed [facility] DEPARTMENT OF PATHOLOGY AND GENOMIC MEDICINE Unit number [id number] [facility] DEPARTMENT OF PATHOLOGY AND GENOMIC MEDICINE Product code [id number] [facility] DEPARTMENT OF PATHOLOGY AND GENOMIC MEDICINE Dispense status Transfused [facility] DEPARTMENT OF PATHOLOGY AND GENOMIC MEDICINE Blood expiration date [id number] [facility] DEPARTMENT OF PATHOLOGY AND GENOMIC MEDICINE Blood type code 6200 [facility] DEPARTMENT OF PATHOLOGY AND GENOMIC MEDICINE Blood type A POSITIVE [facility] DEPARTMENT OF PATHOLOGY AND GENOMIC MEDICINE Product name Pooled Cryoprecipitate Thawed [facility] DEPARTMENT OF PATHOLOGY AND GENOMIC MEDICINE Unit number [id number] [facility] DEPARTMENT OF PATHOLOGY AND GENOMIC MEDICINE Product code [id number] [facility] DEPARTMENT OF PATHOLOGY AND GENOMIC MEDICINE Dispense status Transfused [facility] DEPARTMENT OF PATHOLOGY AND GENOMIC MEDICINE Blood expiration date [id number] [facility] DEPARTMENT OF PATHOLOGY AND GENOMIC MEDICINE Blood type code 6200 [facility] DEPARTMENT OF PATHOLOGY AND GENOMIC MEDICINE Blood type A POSITIVE [facility] DEPARTMENT OF PATHOLOGY AND GENOMIC MEDICINE Specimen Blood Performing Organization Address City/State/Zipcode Phone Number [facility] DEPARTMENT OF [address] [place] [phone] PATHOLOGY AND GENOMIC MEDICINE * Prepare RBC, 1 Units (07/06/2017 8:58 PM) Only the most recent of 3 results within the time period is included. Product name Red Cells AS1 Leukored Irrad [facility] DEPARTMENT OF PATHOLOGY AND GENOMIC MEDICINE Unit number [id number] [facility] DEPARTMENT OF PATHOLOGY AND GENOMIC MEDICINE Product code [id number] [facility] DEPARTMENT OF PATHOLOGY AND GENOMIC MEDICINE Dispense status Transfused [facility] DEPARTMENT OF PATHOLOGY AND GENOMIC MEDICINE Blood expiration date [id number] [facility] DEPARTMENT OF PATHOLOGY AND GENOMIC MEDICINE Blood type code 5100 [facility] DEPARTMENT OF PATHOLOGY AND GENOMIC MEDICINE Blood type O POSITIVE [facility] DEPARTMENT OF PATHOLOGY AND GENOMIC MEDICINE Performing Organization Address City/[facility] Phone Number [facility] [place] [address] PATHOLOGY AND GENOMIC MEDICINE * Type and screen (07/06/2017 8:58 PM) ABO grouping O [facility] DEPARTMENT OF PATHOLOGY AND GENOMIC MEDICINE Rh type POS [facility] DEPARTMENT OF PATHOLOGY AND GENOMIC MEDICINE Antibody screen (gel) NEG [facility] DEPARTMENT OF PATHOLOGY AND GENOMIC MEDICINE Specimen Blood Performing Organization Address City/State/Zipcode Phone Number [facility] [place] [address] PATHOLOGY AND GENOMIC MEDICINE * Lipase level (07/06/2017 8:58 PM) Lipase 63 (H) 13 - 60 U/L [facility] DEPARTMENT OF PATHOLOGY AND GENOMIC MEDICINE Specimen Plasma specimen Performing Organization Address City/[facility] Phone Number [facility] [place] [address] PATHOLOGY AND GENOMIC MEDICINE * Amylase level (07/06/2017 8:58 PM) Amylase 29 13 - 53 U/L [facility] DEPARTMENT OF PATHOLOGY AND GENOMIC MEDICINE Specimen Plasma specimen Performing Organization Address City/[facility] Phone Number [facility] [place] [address] PATHOLOGY AND GENOMIC MEDICINE after 06/27/2017 Insurance Payer Benefit Subscriber ID Type Phone Address Plan / Group [employer] C[employer] OPEN xxxxxxxxx O ACCESS/[place] [address]
[2018-06-28] MEDS ORDERED: PANTOPRAZOLE 40 MG 10ML VIAL IV STA (21:21)
[2018-06-28] MEDS ORDERED: ONDANSETRON HCL INJ 2 MG/ML VIAL IV STA (21:21)
[2018-06-28] MEDS ORDERED: HYDROMORPHONE 1MG/1ML INJ IV STA (21:21)
[2018-06-28] MEDS ORDERED: SODIUM CHLORIDE 0.9% 500ML 500 ML ONE (21:28)
[2018-06-28] MEDS ORDERED: SODIUM CHLORIDE 0.9% 500ML 500 ML IV ONE ×2 (21:30→22:45)
[2018-06-28 21:37] LABS: BASOPHILS % 0.1 % (0.0-1.0); HEMATOCRIT 28.3 % (34.2-44.1); LYMPHOCYTES # (AUTO) 0.2 (1.0-3.2); LYMPHOCYTES % 1.5 % (18.0-39.1); MEAN CORPUSCULAR HEMOGLOBIN 20.1 pg (28-32); MEAN CORPUSCULAR HGB CONC 28.3 g/dL (31-35); MEAN CORPUSCULAR VOLUME 71.1 fL (81-99); MONOCYTES # (AUTO) 0.8 (0.2-0.8); MONOCYTES % 5.5 % (4.4-11.3); NEUTROPHILS % 92.2 % (38.7-80.0); PLATELET COUNT 87 x10e3/uL (140-360); RED BLOOD COUNT 3.98 x10e6/uL (3.6-5.1); RED CELL DISTRIBUTION WIDTH 22.4 % (11.7-14.4)
[2018-06-28] MEDS ORDERED: HYDROMORPHONE 2MG/ML 2 MG/ML ML ONE (21:51)
[2018-06-28 21:54] LABS: INR 1.49; PARTIAL THROMBOPLASTIN TIME 33.7 seconds (23.8-35.5); PROTHROMBIN TIME 19.3 seconds (11.9-14.5)
[2018-06-28 21:54] LABS: CLARITY,URINE SL CLOUDY (CLEAR); COLOR,URINE YELLOW (YELLOW); LEUKOCYTE ESTERASE ,URINE NEGATIVE (NEGATIVE); NITRITE,URINE POSITIVE (NEGATIVE)
[2018-06-28 21:55] LABS: BACTERIA,URINE MANY /HPF; BILIRUBIN,URINE NEGATIVE (NEGATIVE); EPITHELIAL CELLS,URINE RARE /LPF; KETONES,URINE TRACE (NEGATIVE); PROTEIN,URINE DIPSTICK TRACE (NEGATIVE); URINE UROBILINOGEN 0.2 mg/dL (0.2 - 1); WBC,URINE (MAN) 0-5 /HPF (0-5)
[2018-06-28 22:04] LABS: ALANINE AMINOTRANSFERASE 12 IU/L (0-55); ALBUMIN 3.2 g/dL (3.5-5.0); ALBUMIN/GLOBULIN RATIO 1.1 (0.8-2.0); ALKALINE PHOSPHATASE 61 IU/L (40-150); ANION GAP 19.6 mmol/L (8-16); BLOOD UREA NITROGEN 18 mg/dL (7-26); BUN/CREATININE RATIO 23 (6-25); CALCIUM 8.9 mg/dL (8.4-10.2); CARBON DIOXIDE 15 mmol/L (22-29); CHLORIDE 110 mmol/L (98-107); CREATINE KINASE 48 IU/L (29-168); CREATININE, SERUM 0.79 mg/dL (0.57-1.11); EST GLOMERULAR FILTRATION RATE > 60 ML/MIN (60-); GLUCOSE 129 mg/dL (74-118); LIPASE 76 U/L (8-78); MAGNESIUM 1.7 MG/DL (1.3-2.1); POTASSIUM 3.6 mmol/L (3.5-5.1); SODIUM 141 mmol/L (136-145)
[2018-06-28 22:13] LABS: BAND NEUTROPHILS % (MANUAL) 4 %; LYMPHOCYTES % (MANUAL) 3 % (19-48); METAMYELOCYTES % (MANUAL) 2 % (0-0); MONOCYTES % (MANUAL) 1 % (3.4-9.0); MYELOCYTES % (MANUAL) 1 % (0-0); NEUTROPHILS % (MANUAL) 89 % (40-74)
[2018-06-28] MEDS ORDERED: VANCOMYCIN 1GM/NS 250 ML 250 ML IV ONE (22:15)
[2018-06-28] MEDS: METRONIDAZOLE 500MG/NS 100ML 100 ML IV SCH (22:15)
[2018-06-28 22:16] LABS: ANISOCYTOSIS F; HYPOCHROMASIA MODERATE; POIKILOCYTOSIS MODERATE; POLYCHROMASIA FEW
[2018-06-28 22:17] LABS: SCHISTOCYTES FEW
[2018-06-28 22:18] LABS: MICROCYTOSIS MODERATE
[2018-06-28 22:19] LABS: PLATELET MORPHOLOGY COMMENT FEW LARGE
[2018-06-28 22:20] LABS: PLATELET ESTIMATE MARKEDLY DECREASED
[2018-06-28] MEDS: CEFEPIME HCL 1 GM VIAL IV SCH (22:30)
--- NOTE | 2018-06-28 22:49 | Diagnostic Imaging Report ---
EXAM: CT Abdomen and Pelvis WITHOUT contrast INDICATION: Incarcerated umbilical hernia. COMPARISON: None. TECHNIQUE: Abdomen and pelvis were scanned utilizing a multidetector helical scanner from the lung base to the pubic symphysis without administration of IV contrast. Absence of intravenous contrast decreases sensitivity for detection of focal lesions and vascular pathology. Coronal and sagittal reformations were obtained. Routine protocol was performed. IV CONTRAST: None. ORAL CONTRAST: None RADIATION DOSE: Total DLP: 166.09 mGy*cm Estimated effective dose: (DLP x 0.015 x size factor) mSv COMPLICATIONS: None FINDINGS: LINES and TUBES: None. LOWER THORAX: Small right pleural effusion. The density of the heart chambers is lower than the interventricular septum suggestive of anemia. HEPATOBILIARY: Cirrhotic liver less conspicuous on today's exam No focal hepatic lesions. No biliary ductal dilation. GALLBLADDER: No radio-opaque stones or sludge. No wall thickening. SPLEEN: Severe splenomegaly PANCREAS: No focal masses or ductal dilatation. ADRENALS: No adrenal nodules KIDNEYS/URETERS: No hydronephrosis. No cystic or solid mass lesions. No stones. GI TRACT: Long segment of small bowel is dilated around the umbilical hernia that contains a short loop of small bowel in keeping with closed loop obstruction. No evidence of pneumatosis at this time. The maximum diameter of small bowel is 3.3 cm . There is edema of the proximal colonic wall. PELVIC ORGANS/BLADDER: Doherty catheter in place to decompress the bladder. LYMPH NODES: No lymphadenopathy. VESSELS: There is moderate atherosclerotic disease in the aorta and major arterial branches. PERITONEUM / RETROPERITONEUM: There is moderate of amount of free fluid in the abdomen and pelvis. BONES: Unremarkable. SOFT TISSUES: Unremarkable. IMPRESSION: 1. Findings are compatible with proximal small bowel obstruction secondary to an umbilical hernia containing a closed small bowel loop obstruction. 2. No evidence of pneumatosis in the bowel wall. 3. Cirrhotic liver with severe splenomegaly and moderate amount of free abdominal and pelvic fluid 4. Small right pleural effusion. 5. Anemia is suspected Signed by: Dr. Burton Bundy M.D. on 06/28/2018 10:46 PM
[2018-06-28] MEDS ORDERED: SODIUM CHLORIDE 0.9% 1000ML 1,000 ML IV ONE (23:00)
[2018-06-28] MEDS ORDERED: HYDROMORPHONE 1MG/1ML INJ IV PRN (23:00)
[2018-06-28] MEDS ORDERED: SODIUM CHLORIDE 0.9% 250ML 250 ML ONE (23:01)
--- NOTE | 2018-06-28 23:35 | Diagnostic Imaging Report ---
EXAMINATION: CHEST SINGLE (PORTABLE) -2 images were provided INDICATION: Incarcerated umbilical hernia. COMPARISON: Chest x-ray on 07/01/2012. FINDINGS: TUBES and LINES: None. LUNGS: Lungs are well inflated. Lungs are clear. There is mild prominence of the central pulmonary vasculature, consistent with pulmonary venous congestion. PLEURA: No pleural effusion or pneumothorax. HEART AND MEDIASTINUM: The cardiomediastinal silhouette is unremarkable. Calcified granulomas and hilar lymph nodes. BONES AND SOFT TISSUES: No acute osseous lesion. Remote right-sided rib fractures. Soft tissues are unremarkable. UPPER ABDOMEN: No free air under the diaphragm. IMPRESSION: 1. No acute thoracic abnormality. 2. Note is made of initial imaging being submitted with incorrect marker. Signed by: Dr. Burton Bundy M.D. on 06/28/2018 11:32 PM
--- OUTSIDE RECORDS SUMMARY | 2018-06-28 23:35 | XMS REPORT ---
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 Allergies, Adverse Reactions, Alerts This patient has no known allergies or adverse reactions. Medications This patient has no known medications. Results Test Description Test Time Test Comments Text Results Atomic Results Result Comments CT ABDOMEN/PELVIS WO 2018-06-28 22:42:00 [place] [address] Patient Name: CHRISTEL MAR MR #: [id number] : 1960 Age/Sex: 58/F Req #: [id number] Adm Physician: Ordered by: ADINA ARRIOLA MD Report #: [id number] Location: ER Room/Bed: Procedure: [id number] CT/CT ABDOMEN/PELVIS WO Exam Date: 06/28/18 Exam Time: 2204 REPORT STATUS: Signed EXAM: CT Abdomen and Pelvis WITHOUT contrast INDICA TION: Incarcerated umbilical hernia. COMPARISON: None. TECHNIQUE: Abdomen and pelvis were scanned utilizing a multidetector helical scanner from the lung base to the pubic symphysis without administration of IV contrast. Absence of intravenous contrast decreases sensitivity for detection of focal lesions and vascular pathology. Coronal and sagittal reformations were obtained. Routine protocol was performed. IV CONTRAST: None. ORAL CONTRAST: None RADIATION DOSE: Total DLP: 166.09 mGy*cm Estimated effective dose: (DLP x 0.015 x size factor) mSv COMPLICATIONS: None FINDINGS: LINES and TUBES: None. LOWER THORAX: Small right pleural effusion. The density of the heart chambers is lower than the interventricular septum suggestive of anemia. HEPATOBILIARY: Cirrhotic liver less conspicuous on today's exam No focal hepatic lesions. No biliary ductal dilation. GALLBLADDER: No radio-opaque stones or sludge. No wall thickening. SPLEEN: Severe splenomegaly PANCREAS: No focal masses or ductal dilatation. ADRENALS: No adrenal nodules KIDNEYS/URETERS: No hydronephrosis. No cystic or solid mass lesions. No stones. GI TRACT: Long segment of small bowel is dilated around the umbilical hernia that contains a short loop of small bowel in keeping with closed loop obstruction. No evidence of pneumatosis at this time. The maximum diameter of small bowel is 3.3 cm . There is edema of the proximal colonic wall. PELVIC ORGANS/BLADDER: Doherty catheter in place to decompress the bladder. LYMPH NODES: No lymphadenopathy. VESSELS: There is moderate atherosclerotic disease in the aorta and major arterial branches. PERITONEUM / RETROPERITONEUM: There is moderate of amount of free fluid in the abdomen and pelvis. BONES: Unremarkable. SOFT TISSUES: Unremarkable. IMPRESSION: 1. Findings are compatible with proximal small bowel obstruction secondary to an umbilical hernia containing a closed small bowel loop obstruction. 2. No evidence of pneumatosis in the bowel wall. 3. Cirrhotic liver with severe splenomegaly and moderate amount of free abdominal and pelvic fluid 4. Small right pleural effusion. 5. Anemia is suspected Signed by: Dr. Burton Bundy M.D. on 06/28/2018 10:46 PM Dictated By: BURTON FUENTES MD 45 Transcribed By: YURI on 06/28/182245 COPY TO: ADINA ARRIOLA MD
--- OUTSIDE RECORDS SUMMARY | 2018-06-28 23:35 | XMS REPORT | Clinical Summary ---
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 Disp. Refills Start End Date Status Date promethazine (PHENERGAN) Take 25 mg by mouth every Active 25 MG tablet 6 (six) hours as needed for nausea or vomiting. kntdraahrj-znxlzcz-ycbglf Take 1 capsule by mouth Active ne [...] Arturo Jung MD ESOPHAGOGASTRODUODENOSCOP Y (EGD) 07/06/2017 [facility] General Internal Medicine Jeniffer Marrero MD Gastrointestinal [...] BLOOD CELLS STAT 05/13/2018 5:43 PM CDT VT INSERT NON-TUNNEL CV Routine 08/06/2017 Gastrointestinal Results for this CATH 9:10 PM SNIPPER hemorrhage with procedure are in the hematemesis [...] CDT procedure are in the results section. VT CRITICAL CARE, ADDL 30 Routine 07/07/2017 Results for this MIN 1:05 AM CDT procedure are in the results section. VT CRITICAL CARE, E/M Routine 07/07/2017 Results for [...] bleeding Alternatives discussed:No treatment and delayed treatment [place] protocol: Procedure explained and questions answered to [...] glucose 106 (H) 65 - 99 mg/dL [facility] DEPARTMENT OF Comment: PATHOLOGY AND No Action Needed GENOMIC MEDICINE Meter ID: [id number] Airborne And Air Delivery Specialist: Jonathon Ortega Performing Organization Address [facility] Phone Number [facility] [place] [address] PATHOLOGY AND GENOMIC MEDICINE * Smear review (07/12/2017 6:02 AM) Only the most recent of 10 results within the time period is included. Platelet slide review Mkd decreased (A) [facility] DEPARTMENT OF PATHOLOGY AND GENOMIC MEDICINE Anisocytosis Moderate [facility] DEPARTMENT OF PATHOLOGY AND GENOMIC MEDICINE Polychromasia Moderate [facility] DEPARTMENT OF PATHOLOGY AND GENOMIC MEDICINE Ovalocytes Moderate [facility] DEPARTMENT OF PATHOLOGY AND GENOMIC MEDICINE Performing Organization Address [facility] Phone Number [address] [address] PATHOLOGY AND GENOMIC MEDICINE * Estimated GFR (07/12/2017 6:02 AM) Only the most recent of 8 results within the time period is included. GFR Non Af Amer >90 mL/min/1.73 m2 [facility] DEPARTMENT OF PATHOLOGY AND GENOMIC MEDICINE GFR Af Amer >90 mL/min/1.73 m2 [facility] DEPARTMENT OF Comment: PATHOLOGY AND Chronic [...] Americans. Specimen Plasma specimen Performing Organization Address City/[facility] [address] PATHOLOGY AND [employer] MEDICINE * Prothrombin time with INR (07/12/2017 6:02 AM) Only the most recent of 8 results within the time period is included. Prothrombin time 19.7 (H) 12.0 - 15.0 sec [facility] DEPARTMENT OF PATHOLOGY AND [employer] MEDICINE INR 1.6 [facility] DEPARTMENT OF Comment: PATHOLOGY AND The International Normalized GENOMIC MEDICINE Ratio (INR) is a therapeutic monitoring tool for patients who are stable on oral anticoagulant therapy. An INR of 2.0-3.0 is suggested for deep vein thrombosis/pulmonary embolism. Specimen Blood Performing Organization Address City/[facility] Phone Number [facility] OF [address] [place] [address] PATHOLOGY AND [employer] MEDICINE * CBC with platelet and differential (07/12/2017 6:02 AM) Only the most recent of 11 results within the time period is included. WBC 2.52 (L) 4.50 - 11.00 k/uL [facility] DEPARTMENT OF PATHOLOGY AND GENOMIC MEDICINE RBC 3.48 (L) 4.20 - 5.50 m/uL [facility] DEPARTMENT OF PATHOLOGY AND GENOMIC MEDICINE HGB 9.2 (L) 12.0 - 16.0 g/dL [facility] DEPARTMENT OF PATHOLOGY AND GENOMIC MEDICINE HCT 28.9 (L) 37.0 - 47.0 % [facility] DEPARTMENT OF PATHOLOGY AND GENOMIC MEDICINE MCV 83.0 82.0 - 100.0 fL [facility] DEPARTMENT OF PATHOLOGY AND GENOMIC MEDICINE MCH 26.4 (L) 27.0 - 34.0 pg [facility] DEPARTMENT OF PATHOLOGY AND GENOMIC MEDICINE MCHC 31.8 31.0 - 37.0 g/dL [facility] DEPARTMENT OF PATHOLOGY AND GENOMIC MEDICINE RDW - SD 61.7 (H) 37.0 - 55.0 fL [facility] DEPARTMENT OF PATHOLOGY AND GENOMIC MEDICINE MPV SEE COMMENTComment: No report 8.8 - 13.2 fL [facility] DEPARTMENT OF PATHOLOGY AND GENOMIC MEDICINE Platelet count 37 (L) 150 - 400 k/uL [facility] DEPARTMENT OF PATHOLOGY AND GENOMIC MEDICINE Nucleated RBC 0.00 /100 WBC [facility] DEPARTMENT OF PATHOLOGY AND GENOMIC MEDICINE Neutrophils 67.0 39.0 - 69.0 % [facility] DEPARTMENT OF PATHOLOGY AND GENOMIC MEDICINE Lymphocytes 17.1 (L) 25.0 - 45.0 % [facility] DEPARTMENT OF PATHOLOGY AND GENOMIC MEDICINE Monocytes 11.5 (H) 0.0 - 10.0 % [facility] DEPARTMENT OF PATHOLOGY AND GENOMIC MEDICINE Eosinophils 3.2 0.0 - 5.0 % [facility] DEPARTMENT OF PATHOLOGY AND GENOMIC MEDICINE Basophils 0.8 0.0 - 1.0 % [facility] DEPARTMENT OF PATHOLOGY AND GENOMIC MEDICINE Immature granulocytes 0.4Comment: "Immature 0.0 - 1.0 % [facility] DEPARTMENT OF granulocytes" (promyelocytes, PATHOLOGY AND myelocytes, metamyelocytes) [facility] Specimen Blood Performing Organization Address City/State/Zipcode Phone Number [facility] DEPARTMENT OF [address] [place] [address] PATHOLOGY AND GENOMIC MEDICINE * Basic metabolic panel (07/12/2017 6:02 AM) Only the most recent of 7 results within the time period is included. Sodium 142 135 - 148 mEq/L [facility] DEPARTMENT OF PATHOLOGY AND GENOMIC MEDICINE Potassium 3.9 3.5 - 5.0 mEq/L [facility] DEPARTMENT OF PATHOLOGY AND GENOMIC MEDICINE Chloride 105 98 - 112 mEq/L [facility] DEPARTMENT OF PATHOLOGY AND GENOMIC MEDICINE CO2 24 24 - 31 mEq/L [facility] DEPARTMENT OF PATHOLOGY AND GENOMIC MEDICINE Anion gap 13 7 - 15 mEq/L [facility] DEPARTMENT OF Comment: PATHOLOGY AND Starting from December [facility] MEDICINE , anion gap calculation no longer incorporates potassium. Please note the change. BUN 13 6 - 20 mg/dL [facility] DEPARTMENT OF PATHOLOGY AND GENOMIC MEDICINE Creatinine 0.6 0.5 - 0.9 mg/dL [facility] DEPARTMENT OF PATHOLOGY AND GENOMIC MEDICINE Glucose 128 (H) 65 - 99 mg/dL [facility] DEPARTMENT OF PATHOLOGY AND GENOMIC MEDICINE Calcium 8.0 (L) 8.3 - 10.2 mg/dL [facility] DEPARTMENT OF PATHOLOGY AND GENOMIC MEDICINE Specimen Plasma specimen Performing Organization Address City/[facility]/Zipcode Phone Number [facility] DEPARTMENT OF [address] [place] [address] PATHOLOGY AND GENOMIC MEDICINE * XR Panorex (07/10/2017 5:27 PM) Narrative Performed At EXAMINATION:XR PANOREX [facility] CLINICAL HISTORY:evaluate dental decay IMPRESSION: There are multiple missing teeth. There is a nonspecific periapical lucencies around the remaining left maxillary anterior molar tooth. The study is limited due to motion artifact. [id number] Procedure Note Interface, Radiology Results Incoming - 07/10/2017 5:41 PM CDT EXAMINATION: XR PANOREX CLINICAL HISTORY: evaluate dental decay IMPRESSION: There are multiple missing teeth. There is a nonspecific periapical lucencies around the remaining left maxillary anterior molar tooth. The study is limited due to motion artifact. [id number] Performing Organization Address City/[facility]/Zipcode Phone Number [facility] [address] [place] [address] * Gram stain (07/10/2017 4:00 PM) Gram stain result No WBC's or organisms seen. [facility] DEPARTMENT OF Comment: PATHOLOGY AND Specimen Information GENOMIC MEDICINE Specimen Source: Urine Specimen Site: See UA Specimen Urine Performing Organization Address City/[facility]/Zipcode Phone Number [facility] [place] [address] PATHOLOGY AND GENOMIC MEDICINE * Urine culture (07/10/2017 4:00 PM) Urine culture isolate Gram positive joel [facility] DEPARTMENT OF <10-1 cfu/ml PATHOLOGY AND (A) GENOMIC MEDICINE Comment: Specimen Information Specimen Source: Urine Specimen Site: See UA Specimen Urine Performing Organization Address [facility]/Zipcode Phone Number [facility] [place] [address] PATHOLOGY AND GENOMIC MEDICINE * Manual differential (07/10/2017 4:11 AM) Manual differential PERFORMED [facility] DEPARTMENT OF PATHOLOGY AND GENOMIC MEDICINE Neutrophils 80.0 (H) 39.0 - 69.0 % [facility] DEPARTMENT OF PATHOLOGY AND GENOMIC MEDICINE Lymphocytes 11.0 (L) 25.0 - 45.0 % [facility] DEPARTMENT OF PATHOLOGY AND GENOMIC MEDICINE Monocytes 4.0 0.0 - 10.0 % [facility] DEPARTMENT OF PATHOLOGY AND GENOMIC MEDICINE Eosinophils 4.0 0.0 - 5.0 % [facility] DEPARTMENT OF PATHOLOGY AND GENOMIC MEDICINE Basophils 1.0 0.0 - 1.0 % [facility] DEPARTMENT OF PATHOLOGY AND GENOMIC MEDICINE Metamyelocytes 0 % [facility] DEPARTMENT OF PATHOLOGY AND GENOMIC MEDICINE Promyelocytes 0 % [facility] DEPARTMENT OF PATHOLOGY AND GENOMIC MEDICINE Platelet slide review Mkd decreased (A) [facility] DEPARTMENT OF PATHOLOGY AND GENOMIC MEDICINE Anisocytosis Moderate [facility] DEPARTMENT OF PATHOLOGY AND GENOMIC MEDICINE Polychromasia Moderate [facility] DEPARTMENT OF PATHOLOGY AND GENOMIC MEDICINE Tear drop cells Occasional [facility] DEPARTMENT OF PATHOLOGY AND GENOMIC MEDICINE Schistocytes Occasional [facility] DEPARTMENT OF PATHOLOGY AND GENOMIC MEDICINE Ovalocytes Moderate [facility] DEPARTMENT OF PATHOLOGY AND GENOMIC MEDICINE Acanthocytes Occasional [facility] DEPARTMENT OF PATHOLOGY AND GENOMIC MEDICINE Performing Organization Address [facility] [place] [address] PATHOLOGY AND GENOMIC MEDICINE * Partial thromboplastin time, activated (07/10/2017 4:11 AM) Only the most recent of 5 results within the time period is included. PTT 32.8 23.0 - 36.0 sec [facility] DEPARTMENT OF Comment: PATHOLOGY AND PTT therapeutic range for [facility] unfractionated heparin is 61.0-112.0 seconds which corresponds to Anti-Xa 0.3-0.7 U/ml. Specimen Blood Performing Organization Address [facility] [place] [address] PATHOLOGY AND [employer] MEDICINE * Phosphorus level (07/10/2017 4:11 AM) Only the most recent of 4 results within the time period is included. Phosphorus 1.8 (L) 2.4 - 4.5 mg/dL [facility] DEPARTMENT OF PATHOLOGY AND GENOMIC MEDICINE Specimen Plasma specimen Performing Organization Address City/[facility] [place] [address] PATHOLOGY AND [employer] MEDICINE * Magnesium level (07/10/2017 4:11 AM) Only the most recent of 4 results within the time period is included. Magnesium 2.0 1.6 - 2.6 mg/dL [facility] DEPARTMENT OF PATHOLOGY AND GENOMIC MEDICINE Specimen Plasma specimen Performing Organization Address [facility] [place] [address] PATHOLOGY AND GENOMIC MEDICINE * Hepatic function panel (07/10/2017 4:11 AM) Only the most recent of 4 results within the time period is included. Albumin 2.9 (L) 3.5 - 5.0 g/dL [facility] DEPARTMENT OF PATHOLOGY AND GENOMIC MEDICINE Total bilirubin 1.1 0.0 - 1.2 mg/dL [facility] DEPARTMENT OF PATHOLOGY AND GENOMIC MEDICINE Bilirubin direct 0.4 (H) 0.0 - 0.3 mg/dL [facility] DEPARTMENT OF PATHOLOGY AND GENOMIC MEDICINE Alkaline phosphatase 52 35 - 104 U/L [facility] DEPARTMENT OF PATHOLOGY AND GENOMIC MEDICINE Protein 5.7 (L) 6.3 - 8.3 g/dL [facility] DEPARTMENT OF Comment: PATHOLOGY AND [place] GENOMIC MEDICINE 4.6-7.0 g/dL 1 week 4.4-7.6 g/dL 7 months-1year 5.1-7.3 g/dL 1-2 years5.6-7 .5 g/dL >3 years6.0-8 .0 g/dL 18-150 6.3-8.3 g/dL ALT 11 5 - 50 U/L [facility] DEPARTMENT OF PATHOLOGY AND GENOMIC MEDICINE AST 23 10 - 35 U/L [facility] DEPARTMENT OF PATHOLOGY AND GENOMIC MEDICINE Specimen Plasma specimen Performing Organization Address [facility] Phone Number [facility] OF [address] [place] [address] PATHOLOGY AND GENOMIC MEDICINE * XR Chest [...] edema. Cardiac silhouette is unchanged. No pneumothorax. [facility]-[id number] Procedure Note Interface, Radiology Results Incoming - 07/09/2017 7:40 AM CDT EXAMINATION: XR CHEST 1 VW PORTABLE INDICATION: Ventilator Patient, right IJ CVC placement COMPARISON: 07/08/2017 IMPRESSION: Right jugular venous catheter with tip near the superior cavoatrial junction. No pneumothorax. Stable vascular congestion and interstitial opacities in the lungs probably representing edema. Cardiac silhouette is unchanged. No pneumothorax. [id number] Performing Organization Address City/State/Zipcode Phone Number [facility] [address] [place] [address] * Lactic acid level (07/09/2017 12:37 AM) Only the most recent of 4 results within the time period is included. Lactic acid 1.3 0.5 - 2.2 mmol/L [facility] DEPARTMENT OF PATHOLOGY AND GENOMIC MEDICINE Specimen Plasma specimen Performing Organization Address City/[facility]/Zipcode Phone Number [facility] DEPARTMENT OF [address] [place] [address] PATHOLOGY AND GENOMIC MEDICINE * MRI Abdomen [...] distal main portal vein near the hilum. [facility]-[id number] Procedure Note Interface, Radiology Results Incoming - [...] distal main portal vein near the hilum. [facility]-[id number] Performing Organization Address City/[facility]/[place] [address] * Fibrinogen (07/08/2017 11:35 AM) Only the most recent of 2 results within the time period is included. Fibrinogen 411 200 - 450 mg/dL [facility] DEPARTMENT OF PATHOLOGY AND [employer] MEDICINE Specimen Blood Performing Organization Address [facility] [place] [address] PATHOLOGY AND [employer] [facility] * Alpha fetoprotein (07/08/2017 3:44 AM) Alpha fetoprotein 1.7 0.0 - 8.3 ng/mL [facility] DEPARTMENT OF Comment: PATHOLOGY AND The Valarie 8000 AFP immunoassay [facility] was used. Results obtained with different assay methods or kits should not be used interchangeably and may be different. Specimen Serum Performing Organization Address [facility] [place] [address] PATHOLOGY AND [employer] MEDICINE * Thromboelastograph (07/08/2017 3:25 AM) Only the most recent of 2 results within the time period is included. TEG R time 4.4 min [facility] DEPARTMENT OF PATHOLOGY AND GENOMIC MEDICINE TEG K time 4.2 min [facility] DEPARTMENT OF PATHOLOGY AND GENOMIC MEDICINE TEG angle 54.0 Deg [facility] DEPARTMENT OF PATHOLOGY AND GENOMIC MEDICINE TEG max amplitude 44.1 mm [facility] DEPARTMENT OF PATHOLOGY AND GENOMIC MEDICINE TEG coagulation index -2.70 Index [facility] DEPARTMENT OF PATHOLOGY AND GENOMIC MEDICINE TEG fibrinolysis/30 0.0 % [facility] DEPARTMENT OF Comment: PATHOLOGY AND Reference Ranges for TEG: [employer] MEDICINE Test: UnitsKaoli n:Citrate Kaolin: Rmin 3.7-8.3 2.5-7.5 Kmin 0.5-3.7 0.8-2.8 AngleDeg 46.8-73.6 55.2-78.4 MA mm54.5-72. 5 50.6-69.4 Gd/sc [id number] CI Index-3.0 - 3.0-3.0 - 3.0 LY30 % 0.0 - 7.5 0.0 - 7.5 Specimen description, TEG OTHER [facility] DEPARTMENT OF PATHOLOGY AND GENOMIC MEDICINE Sample type, TEG CK [facility] DEPARTMENT OF PATHOLOGY AND GENOMIC MEDICINE TEG SP time 4.0 min [facility] DEPARTMENT OF PATHOLOGY AND GENOMIC MEDICINE TEG G 3,943.5 d/sc [facility] DEPARTMENT OF PATHOLOGY AND GENOMIC MEDICINE Specimen Plasma specimen Performing Organization Address City/[facility] Phone Number [facility] [place] [address] PATHOLOGY AND GENOMIC MEDICINE * Hepatitis C virus quantitative by PCR (07/08/2017 3:00 AM) Hepatitis C quantitative, Not-Detected Not-Detected IU/mL [facility] DEPARTMENT OF PCR PATHOLOGY AND GENOMIC MEDICINE Hepatitis C quantitative, See link below for PDF Lab [facility] DEPARTMENT OF PCR ReportComment: Case Number: PATHOLOGY AND [id number] GENOMIC MEDICINE Specimen Blood Performing Organization Address [facility] [place] [address] PATHOLOGY AND GENOMIC MEDICINE * US Abdominal [...] are identified and are patent. Procedure Note [facility], Radiology Results Incoming - 07/07/2017 5:25 PM [...] patent. Performing Organization Address City/State/Zipcode Phone Number [facility] [address] [place] [address] * US Abdomen Complete (07/07/2017 4:55 PM) Narrative Performed At EXAM: US ABDOMEN COMPLETE [facility] CLINICAL DATA:CIRRHOSIS COMPARISON: NONE. FINDINGS: 1.Visualized portions [...] liver. Nonspecific appearance of gallbladder wall thickening. [facility]-[id number] Procedure Note Interface, Radiology Results Incoming - [...] liver. Nonspecific appearance of gallbladder wall thickening. [facility]-[id number] Performing Organization Address [facility]/Zipcode Phone Number [address] [address] * Blood culture, aerobic & anaerobic (07/07/2017 5:00 AM) Only the most recent of 2 results within the time period is included. Blood culture isolate No growth after 5 days of [facility] DEPARTMENT OF incubation. PATHOLOGY AND Comment: GENOMIC MEDICINE Specimen Information Specimen Source: Blood Specimen Site: Antecubital Right Specimen Blood Performing Organization Address City/[facility] Phone Number [address] [address] PATHOLOGY AND GENOMIC MEDICINE * Ionized calcium (07/07/2017 3:35 AM) pH 7.53 [facility] DEPARTMENT OF PATHOLOGY AND GENOMIC MEDICINE Ionized calcium 1.03 (L) 1.11 - 1.32 mmol/L [facility] DEPARTMENT OF PATHOLOGY AND GENOMIC MEDICINE Specimen Plasma specimen Performing Organization Address [facility] [place] [address] PATHOLOGY AND GENOMIC MEDICINE * Comprehensive metabolic panel (07/07/2017 3:35 AM) Sodium 140 135 - 148 mEq/L [facility] DEPARTMENT OF PATHOLOGY AND GENOMIC MEDICINE Potassium 3.9 3.5 - 5.0 mEq/L [facility] DEPARTMENT OF PATHOLOGY AND GENOMIC MEDICINE Chloride 109 98 - 112 mEq/L [facility] DEPARTMENT OF PATHOLOGY AND GENOMIC MEDICINE CO2 20 (L) 24 - 31 mEq/L [facility] DEPARTMENT OF PATHOLOGY AND GENOMIC MEDICINE Anion gap 11 7 - 15 mEq/L [facility] DEPARTMENT OF Comment: PATHOLOGY AND Starting from December GENOMIC MEDICINE , anion gap calculation no longer incorporates potassium. Please note the change. BUN 26 (H) 6 - 20 mg/dL [facility] DEPARTMENT OF PATHOLOGY AND GENOMIC MEDICINE Creatinine 0.7 0.5 - 0.9 mg/dL [facility] DEPARTMENT OF PATHOLOGY AND GENOMIC MEDICINE Glucose 103 (H) 65 - 99 mg/dL [facility] DEPARTMENT OF PATHOLOGY AND GENOMIC MEDICINE Calcium 7.2 (L) 8.3 - 10.2 mg/dL [facility] DEPARTMENT OF PATHOLOGY AND GENOMIC MEDICINE Protein 4.8 (L) 6.3 - 8.3 g/dL [facility] DEPARTMENT OF Comment: PATHOLOGY AND [place] GENOMIC MEDICINE 4.6-7.0 g/dL 1 week 4.4-7.6 g/dL 7 months-1year 5.1-7.3 g/dL 1-2 years5.6-7 .5 g/dL >3 years6.0-8 .0 g/dL 18-150 6.3-8.3 g/dL Albumin 2.5 (L) 3.5 - 5.0 g/dL [facility] DEPARTMENT OF PATHOLOGY AND GENOMIC MEDICINE A/G ratio 1.1 0.7 - 3.8 [facility] DEPARTMENT OF PATHOLOGY AND GENOMIC MEDICINE Alkaline phosphatase 33 (L) 35 - 104 U/L [facility] [facility] DEPARTMENT OF PATHOLOGY AND GENOMIC MEDICINE AST 22 10 - 35 U/L [facility] DEPARTMENT OF PATHOLOGY AND GENOMIC MEDICINE ALT 10 5 - 50 U/L [facility] DEPARTMENT OF PATHOLOGY AND GENOMIC MEDICINE Total bilirubin 0.7 0.0 - 1.2 mg/dL [facility] DEPARTMENT OF PATHOLOGY AND GENOMIC MEDICINE Specimen Plasma specimen Performing Organization Address City/State/Zipcode Phone Number [facility] DEPARTMENT OF [address] [place] [address] PATHOLOGY AND GENOMIC MEDICINE * CRITICAL CARE [...] lead (07/06/2017 9:04 PM) Ventricular rate 92 [facility] MUSE Atrial rate 92 [facility] MUSE VT interval 138 [facility] MUSE QRSD interval 86 [facility] MUSE QT interval 390 [facility] MUSE QTC interval 482 [facility] MUSE P axis 1 59 [facility] MUSE QRS axis 1 4 [facility] MUSE T wave axis 58 [facility] MUSE EKG impression Normal sinus [facility] MUSE rhythm-Nonspecific ST and T wave abnormality-Prolonged QT-Abnormal ECG-In automated comparison with ECG of -DEC-2014 20:25,-No significant change was found- Performing Organization Address City/[facility] Phone Number [place] [phone] * Prepare platelet pheresis, 1 Units (07/06/2017 8:58 PM) Only the most recent of 2 results within the time period is included. Product name Apheresis PLT, Leukored IRR #2 [facility] DEPARTMENT OF PATHOLOGY AND GENOMIC MEDICINE Unit number [id number] [facility] DEPARTMENT OF PATHOLOGY AND GENOMIC MEDICINE Product code [id number] [facility] DEPARTMENT OF PATHOLOGY AND GENOMIC MEDICINE Dispense status Transfused [facility] DEPARTMENT OF PATHOLOGY AND GENOMIC MEDICINE Blood expiration date [id number] [facility] DEPARTMENT OF PATHOLOGY AND GENOMIC MEDICINE Blood type code 5100 [facility] DEPARTMENT OF PATHOLOGY AND GENOMIC MEDICINE Blood type O POSITIVE [facility] DEPARTMENT OF PATHOLOGY AND GENOMIC MEDICINE Performing Organization Address City/[facility] Phone Number [address] [address] PATHOLOGY AND GENOMIC MEDICINE * Prepare cryoprecipitate, 20 Units (07/06/2017 8:58 PM) Only the most recent of 2 results within the time period is included. Product name Pooled Cryoprecipitate Thawed [facility] DEPARTMENT OF PATHOLOGY AND GENOMIC MEDICINE Unit number [id number] [facility] DEPARTMENT OF PATHOLOGY AND GENOMIC MEDICINE Product code [id number] [facility] DEPARTMENT OF PATHOLOGY AND GENOMIC MEDICINE Dispense status Transfused [facility] DEPARTMENT OF PATHOLOGY AND GENOMIC MEDICINE Blood expiration date [id number] [facility] DEPARTMENT OF PATHOLOGY AND GENOMIC MEDICINE Blood type code 6200 [facility] DEPARTMENT OF PATHOLOGY AND GENOMIC MEDICINE Blood type A POSITIVE [facility] DEPARTMENT OF PATHOLOGY AND GENOMIC MEDICINE Product name Pooled Cryoprecipitate Thawed [facility] DEPARTMENT OF PATHOLOGY AND GENOMIC MEDICINE Unit number [id number] [facility] DEPARTMENT OF PATHOLOGY AND GENOMIC MEDICINE Product code [id number] [facility] DEPARTMENT OF PATHOLOGY AND GENOMIC MEDICINE Dispense status Transfused [facility] DEPARTMENT OF PATHOLOGY AND GENOMIC MEDICINE Blood expiration date [id number] [facility] DEPARTMENT OF PATHOLOGY AND GENOMIC MEDICINE Blood type code 6200 [facility] DEPARTMENT OF PATHOLOGY AND GENOMIC MEDICINE Blood type A POSITIVE [facility] DEPARTMENT OF PATHOLOGY AND GENOMIC MEDICINE Product name Pooled Cryoprecipitate Thawed [facility] DEPARTMENT OF PATHOLOGY AND GENOMIC MEDICINE Unit number [id number] [facility] DEPARTMENT OF PATHOLOGY AND GENOMIC MEDICINE Product code [id number] [facility] DEPARTMENT OF PATHOLOGY AND GENOMIC MEDICINE Dispense status Transfused [facility] DEPARTMENT OF PATHOLOGY AND GENOMIC MEDICINE Blood expiration date [id number] [facility] DEPARTMENT OF PATHOLOGY AND GENOMIC MEDICINE Blood type code 6200 [facility] DEPARTMENT OF PATHOLOGY AND GENOMIC MEDICINE Blood type A POSITIVE [facility] DEPARTMENT OF PATHOLOGY AND GENOMIC MEDICINE Product name Pooled Cryoprecipitate Thawed [facility] DEPARTMENT OF PATHOLOGY AND GENOMIC MEDICINE Unit number [id number] [facility] DEPARTMENT OF PATHOLOGY AND GENOMIC MEDICINE Product code [id number] [facility] DEPARTMENT OF PATHOLOGY AND GENOMIC MEDICINE Dispense status Transfused [facility] DEPARTMENT OF PATHOLOGY AND GENOMIC MEDICINE Blood expiration date [id number] [facility] DEPARTMENT OF PATHOLOGY AND GENOMIC MEDICINE Blood type code 6200 [facility] DEPARTMENT OF PATHOLOGY AND GENOMIC MEDICINE Blood type A POSITIVE [facility] DEPARTMENT OF PATHOLOGY AND GENOMIC MEDICINE Specimen Blood Performing Organization Address City/State/Zipcode Phone Number [facility] DEPARTMENT OF [address] [place] [phone] PATHOLOGY AND GENOMIC MEDICINE * Prepare RBC, 1 Units (07/06/2017 8:58 PM) Only the most recent of 3 results within the time period is included. Product name Red Cells AS1 Leukored Irrad [facility] DEPARTMENT OF PATHOLOGY AND GENOMIC MEDICINE Unit number [id number] [facility] DEPARTMENT OF PATHOLOGY AND GENOMIC MEDICINE Product code [id number] [facility] DEPARTMENT OF PATHOLOGY AND GENOMIC MEDICINE Dispense status Transfused [facility] DEPARTMENT OF PATHOLOGY AND GENOMIC MEDICINE Blood expiration date [id number] [facility] DEPARTMENT OF PATHOLOGY AND GENOMIC MEDICINE Blood type code 5100 [facility] DEPARTMENT OF PATHOLOGY AND GENOMIC MEDICINE Blood type O POSITIVE [facility] DEPARTMENT OF PATHOLOGY AND GENOMIC MEDICINE Performing Organization Address City/[facility] Phone Number [facility] [place] [address] PATHOLOGY AND GENOMIC MEDICINE * Type and screen (07/06/2017 8:58 PM) ABO grouping O [facility] DEPARTMENT OF PATHOLOGY AND GENOMIC MEDICINE Rh type POS [facility] DEPARTMENT OF PATHOLOGY AND GENOMIC MEDICINE Antibody screen (gel) NEG [facility] DEPARTMENT OF PATHOLOGY AND GENOMIC MEDICINE Specimen Blood Performing Organization Address City/State/Zipcode Phone Number [facility] [place] [address] PATHOLOGY AND GENOMIC MEDICINE * Lipase level (07/06/2017 8:58 PM) Lipase 63 (H) 13 - 60 U/L [facility] DEPARTMENT OF PATHOLOGY AND GENOMIC MEDICINE Specimen Plasma specimen Performing Organization Address City/[facility] Phone Number [facility] [place] [address] PATHOLOGY AND GENOMIC MEDICINE * Amylase level (07/06/2017 8:58 PM) Amylase 29 13 - 53 U/L [facility] DEPARTMENT OF PATHOLOGY AND GENOMIC MEDICINE Specimen Plasma specimen Performing Organization Address City/[facility] Phone Number [facility] [place] [address] PATHOLOGY AND GENOMIC MEDICINE after 06/27/2017 Insurance Payer Benefit Subscriber ID Type Phone Address Plan / Group [employer] CIGNA OPEN xxxxxxxxx O ACCESS/[place] [address]
[2018-06-29] VITALS (31 sets, daily range): BP systolic 114–152; BP diastolic 56–124
[2018-06-29] MEDS ORDERED: BACITRACIN 50,000 UNIT VIAL ONE (01:47)
--- NOTE | 2018-06-29 01:52 | Consultation ---
DATE OF CONSULTATION: June 29, 2018 CHIEF COMPLAINT: Abdominal pain. HISTORY OF PRESENT ILLNESS: The patient is a 58-year-old female, 1-day history of abdominal pain vomiting. No fever or chills. The patient states he has had umbilical hernia for a while, but it has gotten more painful and tighter with recent vomiting. PAST MEDICAL HISTORY: Positive for hepatitis with liver cirrhosis. SURGICAL HISTORY: Positive for appendectomy, . ALLERGIES: ALLERGIC TO ERYTHROMYCIN, IODINE, SULFA. REVIEW OF SYSTEMS: No chest pain, shortness of breath. PHYSICAL EXAMINATION VITALS: Stable. Temperature of 100. GENERAL: Patient awake, alert, in moderate discomfort. HEENT: Sclerae anicteric. NECK: Supple. LUNGS: Clear. HEART: Regular rate and rhythm. ABDOMEN: Distended with incarcerated mass at umbilicus, tender to touch. EXTREMITIES: Without cyanosis, edema. LAB: Creatinine is 0.7. Lactic acid 34. White cell count 15 with hemoglobin of 8 and platelet count of 87,000. INR 1.5, PT 19. CT scan showed incarcerated umbilical hernia with loops of small bowel and proximal dilatation consistent with obstruction. ASSESSMENT: Incarcerated possible strangulated umbilical hernia with bowel obstruction. PLAN: Repair of incarcerated umbilical hernia with possible bowel resection. Job#: [id number] CQ
[2018-06-29] MEDS ORDERED: BUPIVACAINE 0.5%/EPI 30 ML SDV INJ ONE (01:57)
[2018-06-29 04:46] LABS: BASOPHILS % 0.7 % (0.0-1.0); LYMPHOCYTES # (AUTO) 0.1 (1.0-3.2); LYMPHOCYTES % 6.8 % (18.0-39.1); MEAN CORPUSCULAR HEMOGLOBIN 21.1 pg (28-32); MEAN CORPUSCULAR HGB CONC 28.5 g/dL (31-35); MONOCYTES # (AUTO) 0.1 (0.2-0.8); MONOCYTES % 8.8 % (4.4-11.3); NEUTROPHILS # (AUTO) 1.2 (2.1-6.9); NEUTROPHILS % 83.7 % (38.7-80.0); RED BLOOD COUNT 3.08 x10e6/uL (3.6-5.1); RED CELL DISTRIBUTION WIDTH 22.1 % (11.7-14.4)
[2018-06-29 04:53] LABS: HEMATOCRIT 22.8 % (34.2-44.1)
[2018-06-29 04:55] LABS: HEMOGLOBIN 6.5 g/dL (12.0-16.0); PLATELET COUNT 31 x10e3/uL (140-360)
[2018-06-29 05:11] LABS: ALANINE AMINOTRANSFERASE 10 IU/L (0-55); ALBUMIN 2.7 g/dL (3.5-5.0); ALBUMIN/GLOBULIN RATIO 1.1 (0.8-2.0); ALKALINE PHOSPHATASE 51 IU/L (40-150); ANION GAP 16.3 mmol/L (8-16); BLOOD UREA NITROGEN 16 mg/dL (7-26); BUN/CREATININE RATIO 24 (6-25); CALCIUM 7.7 mg/dL (8.4-10.2); CARBON DIOXIDE 14 mmol/L (22-29); CHLORIDE 116 mmol/L (98-107); CREATININE, SERUM 0.66 mg/dL (0.57-1.11); EST GLOMERULAR FILTRATION RATE > 60 ML/MIN (60-); GLUCOSE 108 mg/dL (74-118); POTASSIUM 3.3 mmol/L (3.5-5.1); SODIUM 143 mmol/L (136-145)
[2018-06-29 05:21] LABS: INR 1.42; PROTHROMBIN TIME 18.5 seconds (11.9-14.5)
[2018-06-29 05:22] LABS: PARTIAL THROMBOPLASTIN TIME 23.1 seconds (23.8-35.5)
[2018-06-29] MEDS ORDERED: SODIUM CHLORIDE 0.9% 250ML 250 ML ONE (05:23)
[2018-06-29] MEDS ORDERED: SODIUM CHLORIDE 0.9% 250ML 250 ML IV ONE (07:00)
[2018-06-29] MEDS: HYDROMORPHONE 2MG/ML 2 MG/ML ML IV PRN ×5 (07:30→22:36)
[2018-06-29] MEDS: ONDANSETRON HCL INJ 2 MG/ML VIAL IV PRN ×2 (07:30→14:56)
[2018-06-29] MEDS ORDERED: POTASSIUM CHLORIDE 20MEQ/100ML 200 ML IV ONE (07:45)
[2018-06-29 07:57] LABS: % IRON SATURATION 25 % (15-50); IRON 66 ug/dL (50-170); TOTAL IRON BINDING CAPACITY 260 ug/dL (261-478); TRANSFERRIN 186 mg/dL (180-382)
[2018-06-29 08:02] LABS: LYMPHOCYTES # (AUTO) 0.2 (1.0-3.2); MEAN CORPUSCULAR HGB CONC 28.5 g/dL (31-35); MEAN CORPUSCULAR VOLUME 73.8 fL (81-99); MONOCYTES # (AUTO) 0.3 (0.2-0.8); MONOCYTES % 8.3 % (4.4-11.3); NEUTROPHILS # (AUTO) 2.6 (2.1-6.9); NEUTROPHILS % 86.4 % (38.7-80.0); PLATELET COUNT 53 x10e3/uL (140-360); RED BLOOD COUNT 3.09 x10e6/uL (3.6-5.1); RED CELL DISTRIBUTION WIDTH 22.1 % (11.7-14.4)
[2018-06-29 08:03] LABS: HEMATOCRIT 22.8 % (34.2-44.1)
--- NOTE | 2018-06-29 08:03 | Operative Report ---
DATE OF PROCEDURE: June 29, 2018 PREOPERATIVE DIAGNOSIS: Incarcerated umbilical hernia with bowel obstruction. POSTOPERATIVE DIAGNOSIS: Strangulated, perforated umbilical hernia. OPERATIVE PROCEDURES: 1. Resection of strangulated, perforated small bowel. 2. Repair of incisional hernia. CHIEF OPERATIONS OFFICER: None. ANESTHESIA: General endotracheal, Dr. Collins. INDICATIONS: Wyduq[age]-old female with history of abdominal pain and vomiting. CT scan shows incarcerated umbilical hernia with loops of bowel and obstruction. Lactic acid is in the 30s. Patient was resuscitated with IV fluid and FFP transfusion as she has elevated PT from liver cirrhosis. PROCEDURE FINDINGS: Strangulated loop of small bowel in umbilical hernia with perforation of the strangulated segment. DESCRIPTION OF PROCEDURE: The patient brought to the OR intubated. Abdomen prepped with alcohol and draped in sterile fashion. A transverse incision is made in the supraumbilical area extending to skin, subcutaneous tissue down to the fascia. The hernia sac is opened. Incarcerating loops of small bowel was noted to be ischemic irreversibly with a small perforation in the middle. The fascial gianni is enlarged in the lateral borders in order to free the loops of small bowel, which is then transected through grossly normal-appearing bowel 1 to 2 cm proximal to the ischemic segment using the MILLY stapler. The mesentery is controlled with LigaSure instrument. The specimen measured approximately 12 cm, is delivered off the field. Operative field is then irrigated. We then performed a stapled anastomosis between the ends of the small intestine using the MILLY stapler and TL-60 instrument. The mesenteric defect is also closed with running 3-0 silk stitch. The loops of small bowel are then dropped back intraperitoneally and the omentum is placed on top of the bowel. We then repaired the fascial defect, which measured approximately 6 cm in diameter in a transverse direction with interrupted figure-of-8 stitch of #0 Prolene suture taking full-thickness bite in the fascial edge on both sides. After fascial repair, the skin is closed with vertical mattress stitches of 2-0 nylon. Patient received transfusions of FFP during the procedure. Estimated blood loss from the procedure is approximately 20 mL. Patient is then extubated and transported in critical condition to ICU. Job#: [id number]
[2018-06-29 08:05] LABS: HEMOGLOBIN 6.5 g/dL (12.0-16.0)
[2018-06-29] MEDS: PANTOPRAZOLE 40 MG 10ML VIAL IV SCH ×2 (08:22→16:36)
--- NOTE | 2018-06-29 09:25 | Consultation ---
DATE OF CONSULTATION: June 29, 2018 Thank you, Dr. [place], for this consultation. She is a 58-year-old female with a past medical history including chronic liver disease with hepatitis admitted with worsening abdominal pain associated with nausea and vomiting. No fever or chills reported. Initial workup shows hemoglobin was 8 with platelet count of 87,000. She had abdominal CT scan showing proximal small-bowel obstruction secondary to umbilical hernia containing closed small loops obstruction. Liver cirrhosis with severe splenomegaly. The patient required FFP and blood. The patient was followed by surgeon. She has required surgical intervention, including hernia umbilical repair. Postsurgical findings including strangulated and perforated umbilical hernia. The patient received resection of the strangulated perforated small bowel repair with incisional hernia. The patient's postop blood work shows hemoglobin went down to 6.5. White cell count was 1.48. The patient required blood transfusion, platelet transfusion, FFP. The patient was receiving fresh frozen plasma. Her white cell count went up to 3.08. No evidence of any active bleeding noted. The patient's last INR was 1.42. PAST MEDICAL HISTORY: Includes chronic liver disease. ALLERGIES: ERYTHROMYCIN, IODINE AND SULFA. MEDICATIONS: Reviewed. SOCIAL HISTORY: No recent headaches. REVIEW OF SYSTEMS: Could not be obtained because of the patient's mental condition. PHYSICAL EXAMINATION GENERAL: The patient is currently on oxygen by face mask. Not much communicative. Alert. HEENT: Normocephalic and atraumatic. Sclerae pink. Conjunctivae clear. NECK: Supple. CHEST: Decreased breath sounds at the bases. CARDIOVASCULAR: Regular rate and rhythm. ABDOMEN: Tender. EXTREMITIES: No edema. OPTOMETRIC ASSISTANT: The patient is awake. LABS AND IMAGING: Reviewed. ASSESSMENT AND PLAN 1. The patient with a history of chronic liver disease with portal hypertension. 2. Severe splenomegaly. 3. Admitted with strangulated hernia and required umbilical repair and small bowel repair. 4. She had coagulopathy. 5. Pancytopenia. 6. Anemia. The patient's coagulopathy, pancytopenia and anemia secondary to chronic liver disease. RECOMMENDATIONS: Supportive care to include FFP, vitamin K, platelets, blood transfusion. The patient will need transfusion. No active bleeding noted. Will recommend continued conservative management. Will monitor CBC, DIC panel often. Try to avoid frequent blood draws. Try to avoid thrombocytopenic medications. Will also check fibrinogen level and look for cryoprecipitate. Will continue remaining care. Will follow the patient closely. Job#: [id number] RADHA
[2018-06-29] MEDS ORDERED: SODIUM CHLORIDE 0.9% 1000ML 1,000 ML ONE (09:47)
[2018-06-29] MEDS: METRONIDAZOLE 500MG/NS 100ML 100 ML IV SCH ×4 (09:50→17:39)
[2018-06-29] MEDS: CEFEPIME HCL 1 GM VIAL IV SCH ×2 (09:50→22:11)
[2018-06-29] MEDS ORDERED: PHYTONADIONE 10 MG/ML AMP SQ ONE (11:15)
[2018-06-29] MEDS ORDERED: PHYTONADIONE 10 MG/ML AMP SQ SCH (12:15)
[2018-06-29 13:13] LABS: BAND NEUTROPHILS % (MANUAL) 8 %; LYMPHOCYTES % (MANUAL) 8 % (19-48); MONOCYTES % (MANUAL) 6 % (3.4-9.0); NEUTROPHILS % (MANUAL) 78 % (40-74)
[2018-06-29 13:15] LABS: HYPOCHROMASIA MODERATE; RBC MORPHOLOGY COMMENT NORMAL
[2018-06-29 13:16] LABS: ANISOCYTOSIS SLIGHT; PLATELET ESTIMATE MODERATELY DECREASED; PLATELET MORPHOLOGY COMMENT NORMAL
[2018-06-29 13:27] LABS: ANISOCYTOSIS MODERATE; BAND NEUTROPHILS % (MANUAL) 8 %; EOSINOPHILS % (MANUAL) 1 % (0-7); HYPOCHROMASIA MODERATE; LYMPHOCYTES % (MANUAL) 8 % (19-48); MONOCYTES % (MANUAL) 10 % (3.4-9.0); NEUTROPHILS % (MANUAL) 72 % (40-74); PLATELET ESTIMATE MODERATELY DECREASED; PLATELET MORPHOLOGY COMMENT FEW GIANT; POIKILOCYTOSIS SLIGHT; RBC MORPHOLOGY COMMENT ABNORMAL
--- NOTE | 2018-06-29 16:53 | History and Physical ---
PRIMARY CARE PROVIDER: Dr. Pedro Mansfield. CHIEF COMPLAINT: Abdominal pain. HISTORY OF PRESENT ILLNESS: Ms. Kerns is a 58-year-old lady who presents with an umbilical hernia that is very tender and purple, appears to be incarcerated. REVIEW OF SYSTEMS: She denies fever, chills or weight loss. She denies sinus congestion or sore throat. She denies chest pain or palpitation. She denies shortness of breath, wheezing or cough. She has periumbilical abdominal pain with some nausea and vomiting. She denies melena or diarrhea. She denies dysuria or flank pain. She denies rash or pruritus. She denies headache, vertigo or loss of consciousness. She denies depression, agitation, homicidal or suicidal ideation. PAST MEDICAL HISTORY: Significant for chronic hepatitis C and cirrhosis. Her regular home meds include: Tylenol No. 3 as needed. Lasix 40 mg daily. Phenergan as needed. Rifaximin 550 mg daily. Nexium daily. Hydroxyzine daily. Spironolactone 100 mg daily. SHE HAS A STATED ALLERGY TO SUMATRIPTAN, ERYTHROMYCIN, IODINE, PROPOXYPHENE. FAMILY HISTORY: Unremarkable. SOCIAL HISTORY: The patient is . Sinhala is her primary language. She does not smoke, drink or use illegal drugs and she is generally independently functioning. PHYSICAL EXAM: PSYCHIATRIC: She is alert and oriented times 3 with normal mood and affect. CONSTITUTIONAL: She has a normal body habitus. Is in no acute distress. A little bit underweight. VITAL SIGNS: Blood pressure 114/58. Pulse 106 and regular. Respiratory rate 19. O2 sat 100%. Temperature 100.3. HEENT: Her head is atraumatic. Her eyes are anicteric with clear conjunctivae. Ears and nares are without erythema or discharge. Oropharynx is clear. NECK: Is supple with no mass or thyromegaly. LYMPHATIC SYSTEM: She has no palpable cervical, axillary or inguinal adenopathy. CARDIOVASCULAR: Her heart has a regular rate and rhythm without murmur or extra heart sound. She has no peripheral edema. She has palpable dorsal pedal pulses. RESPIRATORY: Lungs are clear to auscultation and percussion with normal respiratory effort. GASTROINTESTINAL: Her abdomen is soft. She has marked swelling in the periumbilical area that is discolored and very tender to touch. She has scarce bowel sounds. CUTANEOUS: Her skin is warm and dry to touch with no rash or skin breakdown. MUSCULOSKELETAL: Her joints are in normal alignment without erythema or swelling. She has no calf tenderness. NEUROLOGIC: Exam is nonfocal with intact cranial nerves and no motor or sensory deficits. DIAGNOSTIC STUDIES: Chest x-ray shows no acute disease. CT scan of the abdomen shows incarcerated umbilical hernia with small-bowel obstruction, possible ischemia. Her CBC showed a white count of 15.14 with 86% neutrophils, hemoglobin 8.0, hematocrit 28.3 and platelet count 87,000. Overnight her hemoglobin dropped to 6.5, hematocrit 22.8, and her white count dropped to 3.02, platelet count dropped to 53. Her pro time 18.5 with an INR of 1.42, PTT 23.1, and that is after 2 units of FFP. She is getting 2 units of blood now for a hemoglobin of 6.5. Her chemistry showed normal electrolytes. CO2 15, creatinine 0.79, BUN 18, glucose 129, calcium 8.9, magnesium 1.7. Lactic acid 34.0, which is markedly elevated. Troponin less than 0.001. IMPRESSION AND PLAN: 1. Sepsis due to ischemic bowel. The patient has been started on IV cefepime and Flagyl. 2. Acute blood loss anemia. The patient is being transfused 2 units of packed red cells. 3. Coagulopathy due to cirrhosis. The patient has already received 2 units of FFP. 4. Incarcerated umbilical hernia with small-bowel obstruction and possible ischemic bowel. Surgery has been consulted. 5. For prophylaxis, the patient is on IV Protonix. Job#: [id number] CONNIE
[2018-06-29] MEDS ORDERED: MORPHINE SULFATE INJ 10 MG/ML ONE (18:45)
[2018-06-29] MEDS ORDERED: MIDAZOLAM HCL 2 MG/2 ML VIAL ONE (18:45)
[2018-06-29] MEDS ORDERED: FENTANYL CITRATE/PF 100MCG/2 ML INJ ONE (18:45)
[2018-06-29] MEDS ORDERED: LORAZEPAM INJ 2 MG/ML VIAL IV PRN (19:00)
[2018-06-29 19:29] LABS: HEMOGLOBIN 9.2 g/dL (12.0-16.0)
[2018-06-30] VITALS (77 sets, daily range): BP systolic 108–161; BP diastolic 55–102
[2018-06-30] MEDS: METRONIDAZOLE 500MG/NS 100ML 100 ML IV SCH ×2 (00:26→06:18)
[2018-06-30] MEDS: HYDROMORPHONE 2MG/ML 2 MG/ML ML IV PRN ×4 (03:06→19:32)
[2018-06-30 04:57] LABS: HEMATOCRIT 28.1 % (34.2-44.1); LYMPHOCYTES # (AUTO) 0.2 (1.0-3.2); LYMPHOCYTES % 6.1 % (18.0-39.1); MEAN CORPUSCULAR HEMOGLOBIN 23.7 pg (28-32); MEAN CORPUSCULAR HGB CONC 29.9 g/dL (31-35); MEAN CORPUSCULAR VOLUME 79.4 fL (81-99); MONOCYTES # (AUTO) 0.3 (0.2-0.8); MONOCYTES % 11.6 % (4.4-11.3); NEUTROPHILS # (AUTO) 2.3 (2.1-6.9); NEUTROPHILS % 81.6 % (38.7-80.0); RED BLOOD COUNT 3.54 x10e6/uL (3.6-5.1); RED CELL DISTRIBUTION WIDTH 21.9 % (11.7-14.4)
[2018-06-30 05:07] LABS: ANION GAP 13.1 mmol/L (8-16); BLOOD UREA NITROGEN 24 mg/dL (7-26); BUN/CREATININE RATIO 33 (6-25); CALCIUM 8.6 mg/dL (8.4-10.2); CARBON DIOXIDE 19 mmol/L (22-29); CHLORIDE 113 mmol/L (98-107); CREATININE, SERUM 0.72 mg/dL (0.57-1.11); EST GLOMERULAR FILTRATION RATE > 60 ML/MIN (60-); GLUCOSE 105 mg/dL (74-118); MAGNESIUM 1.9 MG/DL (1.3-2.1); SODIUM 141 mmol/L (136-145)
[2018-06-30 05:16] LABS: POTASSIUM 4.1 mmol/L (3.5-5.1)
[2018-06-30 05:45] LABS: PLATELET COUNT 27 x10e3/uL (140-360)
[2018-06-30 05:46] LABS: HEMOGLOBIN 8.4 g/dL (12.0-16.0)
[2018-06-30] MEDS: ONDANSETRON HCL INJ 2 MG/ML VIAL IV PRN ×2 (08:45→16:09)
[2018-06-30] MEDS: PANTOPRAZOLE 40 MG 10ML VIAL IV SCH ×2 (08:45→16:09)
[2018-06-30 08:50] LABS: BAND NEUTROPHILS % (MANUAL) 4 %; EOSINOPHILS % (MANUAL) 1 % (0-7); LYMPHOCYTES % (MANUAL) 7 % (19-48); MONOCYTES % (MANUAL) 9 % (3.4-9.0); MYELOCYTES % (MANUAL) 1 % (0-0); NEUTROPHILS % (MANUAL) 78 % (40-74)
[2018-06-30 08:51] LABS: ANISOCYTOSIS MODERATE; ELLIPTOCYTE, RBC SLIGHT; HYPOCHROMASIA SLIGHT; RBC MORPHOLOGY COMMENT ABNORMAL; TEAR DROP CELLS FEW
[2018-06-30 08:52] LABS: PLATELET ESTIMATE MARKEDLY DECREASED; PLATELET MORPHOLOGY COMMENT NORMAL; SMUDGE CELLS FEW
[2018-06-30] MEDS: CEFEPIME HCL 1 GM VIAL IV SCH (09:11)
--- NOTE | 2018-06-30 09:33 | Progress Note ---
DATE: June 30, 2018 The patient was seen and examined today. She appeared comfortable. No evidence of any active bleeding. Patient's current hemoglobin is stable. She has worsening thrombocytopenia and also has low fibrinogen level. No active bleeding noted. PHYSICAL EXAMINATION GENERAL: Alert, awake, not communicative. HEENT: Normocephalic and atraumatic. Sclerae pink. Conjunctivae clear. NECK: Supple. CHEST: Decreased breath sounds at the bases. CARDIOVASCULAR: Regular rate and rhythm. EXTREMITIES: No edema. LABS AND IMAGING: Reviewed. ASSESSMENT AND PLAN: The patient with a history of chronic liver disease, admitted with hernia status post hernia repair. She has pancytopenia and anemia. Hemoglobin stable. Her counts are trending downward. Recommendation jumbo platelets. Also had low fibrinogen level. RECOMMENDATIONS 1. Ten units of cryo. 2. To continue care. We will monitor CBC closely. 3. We will follow patient closely. Job#: [id number]
[2018-06-30] MEDS ORDERED: SODIUM CHLORIDE 0.9% 250ML 250 ML ONE (10:07)
[2018-06-30] MEDS ORDERED: DIPHENHYDRAMINE HCL INJ 50 MG/ML VIAL IV SCH ×2 (13:15→13:30)
[2018-06-30] MEDS: VANCOMYCIN 1GM/NS 250 ML 250 ML IV SCH (14:34)
[2018-06-30] MEDS: DEXTROSE 5%/0.45% SOD CHL 1,000 ML IV SCH (15:31)
--- NOTE | 2018-06-30 15:39 | Consultation ---
DATE OF CONSULTATION: June 30, 2018 REASON FOR CONSULTATION: Abdominal wall cellulitis. HISTORY OF PRESENT ILLNESS: This patient who is a 58-year-old female who is currently in the ICU here at [facility]. The patient has history of liver cirrhosis, comes in with abdominal pain. No fever. No chills. The patient who has history of appendectomy, history of , was seen by surgery, was found to have incarcerated umbilical hernia with bowel obstruction, Underwent resection of strangulated small bowel as well as repair for incisional hernia. Patient started to have some drainage postoperatively. Infectious disease was consulted. The patient does not provide any complaints at the present time. She is alert, does not seem to be in acute distress. PAST MEDICAL HISTORY: Liver cirrhosis. PAST SURGICAL HISTORY: As above. ALLERGIES: NKA. SOCIAL HISTORY: There is no smoking, drug abuse, or alcohol abuse. FAMILY HISTORY: Otherwise unremarkable. She does have history of chronic hepatitis C. MEDICATIONS AT HOME: She is on Tylenol No. 3, Lasix, Phenergan, spironolactone. PHYSICAL EXAMINATION GENERAL: She is currently alert, does not seem to be in acute distress. VITALS: Stable. Currently afebrile. HEENT: She does not appear icteric. NECK: Supple. CHEST: Clear bilateral. COR: S1, S2. No S3, S4, or murmur. ABDOMEN: Soft. The wound, there is some drainage noted. There is serosanguineous dressing. LABS: Her urine is showing E. coli, it was ESBL, sensitive to meropenem. Blood cultures 2 sets showing gram-positive cocci. Her white count was 2.77; When she first came, it was 15.4; Hemoglobin 8.4; platelets of 27. sodium 143, potassium 3.3, creatinine 0.66. IMPRESSION 1. Sepsis, gram-positive cocci. We will put her on vancomycin 1 gram q.12. Recheck CBC. Recheck Chem panel. 2. Urinary tract infection. We will put her on meropenem 500 IV q.6. 3. Can discontinue metronidazole. 4. We will follow with you. Job#: [id number] LPA
[2018-06-30 16:59] LABS: HEMATOCRIT 28.6 % (34.2-44.1); HEMOGLOBIN 8.5 g/dL (12.0-16.0)
[2018-06-30 17:10] LABS: INR 1.98
[2018-06-30 17:11] LABS: PARTIAL THROMBOPLASTIN TIME 31.8 seconds (23.8-35.5)
[2018-06-30] MEDS ORDERED: MEROPENEM 500MG 500 MG in SODIUM CHLORIDE 0.9% 50ML 50 ML IV SCH (18:00)
[2018-06-30] MEDS ORDERED: MEROPENEM 500 MG VIAL IV SCH (18:00)
[2018-06-30] MEDS: MEROPENEM 500 MG VIAL IV SCH (18:02)
[2018-07-01] VITALS (8 sets, daily range): BP systolic 127–161; BP diastolic 61–81
[2018-07-01] MEDS: HYDROMORPHONE 2MG/ML 2 MG/ML ML IV PRN ×5 (00:26→18:30)
[2018-07-01] MEDS: ONDANSETRON HCL INJ 2 MG/ML VIAL IV PRN ×2 (00:26→04:57)
[2018-07-01] MEDS: VANCOMYCIN 1GM/NS 250 ML 250 ML IV SCH ×2 (02:00→13:45)
[2018-07-01] MEDS: DEXTROSE 5%/0.45% SOD CHL 1,000 ML IV SCH (03:55)
[2018-07-01 04:59] LABS: BASOPHILS % 0.1 % (0.0-1.0); EOSINOPHILS % 0.4 % (0.0-6.0); HEMATOCRIT 34.7 % (34.2-44.1); HEMOGLOBIN 10.2 g/dL (12.0-16.0); LYMPHOCYTES # (AUTO) 0.3 (1.0-3.2); LYMPHOCYTES % 4.7 % (18.0-39.1); MEAN CORPUSCULAR HEMOGLOBIN 23.2 pg (28-32); MEAN CORPUSCULAR HGB CONC 29.4 g/dL (31-35); MONOCYTES # (AUTO) 0.6 (0.2-0.8); MONOCYTES % 7.8 % (4.4-11.3); NEUTROPHILS # (AUTO) 6.2 (2.1-6.9); NEUTROPHILS % 86.2 % (38.7-80.0); PLATELET COUNT 50 x10e3/uL (140-360); RED BLOOD COUNT 4.39 x10e6/uL (3.6-5.1)
[2018-07-01] MEDS: MEROPENEM 500 MG VIAL IV SCH ×4 (05:11→17:28)
[2018-07-01 05:17] LABS: ANION GAP 13.5 mmol/L (8-16); BLOOD UREA NITROGEN 21 mg/dL (7-26); BUN/CREATININE RATIO 33 (6-25); CARBON DIOXIDE 18 mmol/L (22-29); CHLORIDE 113 mmol/L (98-107); CREATININE, SERUM 0.64 mg/dL (0.57-1.11); EST GLOMERULAR FILTRATION RATE > 60 ML/MIN (60-); GLUCOSE 91 mg/dL (74-118); MAGNESIUM 1.8 MG/DL (1.3-2.1); POTASSIUM 3.5 mmol/L (3.5-5.1); SODIUM 141 mmol/L (136-145)
[2018-07-01] MEDS: PANTOPRAZOLE 40 MG 10ML VIAL IV SCH ×2 (09:00→16:27)
--- NOTE | 2018-07-01 09:15 | Progress Note ---
DATE: July 01, 2018 Patient was seen and examined today. Patient appears comfortable. Clinically, doing better. No worsening events noted. PHYSICAL EXAMINATION GENERAL: Alert, awake and communicative. NG tube in place. HEENT: Normocephalic and atraumatic. Sclerae pink. Conjunctivae clear. NECK: Supple. CHEST: Decreased breath sounds at the bases. CARDIOVASCULAR: Regular rate and rhythm. ABDOMEN: Tender. EXTREMITIES: No edema. FISHER TRAP: Intact. LABS AND IMAGING: Reviewed. ASSESSMENT AND PLAN: Patient with a history of chronic liver disease with portal hypertension, severe splenomegaly admitted with strangulated hernia and required umbilical repair and small bowel tear repair. She was coagulopathic, pancytopenic and anemic. She has required multiple blood transfusions, including fresh frozen plasma, platelets, cryoprecipitate. Current hemoglobin is stable. Platelet count has improved. Clinical condition has improved. RECOMMENDATIONS: Continue current care. Try to avoid frequent blood draws. Try to avoid thrombocytopenic medications. Will monitor the patient closely. Job#: [id number] RADHA
[2018-07-01] MEDS ORDERED: DIPHENHYDRAMINE HCL INJ 50 MG/ML VIAL IV PRN (10:15)
[2018-07-01] MEDS: ALBUTEROL/IPRATROPIUM 3 ML NEB NEB PRN (12:20)
[2018-07-01] MEDS: PROMETHAZINE 12.5MG/ NACL 0.9% 12.5 MG/50 ML BAG IV PRN (20:19)
--- NOTE | 2018-07-01 23:32 | Diagnostic Imaging Report ---
CHEST XRAY LINE PLACEMENT, 07/01/2018 11:05 PM Technique: CHEST XRAY LINE PLACEMENT Comparison: 06/28/2018 Clinical history: PICC line verification Findings: See Impression Impression: Limited by portable technique and underpenetration 1. Lines/Tubes: Right PICC seen as far as the proximal SVC, obscured by overlying lead. 2. Stable visualized enlarged cardiomediastinal silhouette. 3. New diffuse opacities, favor edema with large layering right pleural effusion and atelectasis. Signed by: Dr Sara Pastor MD on 07/01/2018 11:29 PM
[2018-07-02] VITALS (8 sets, daily range): BP systolic 119–162; BP diastolic 58–74
[2018-07-02] MEDS: HYDROMORPHONE 2MG/ML 2 MG/ML ML IV PRN ×4 (00:10→22:48)
[2018-07-02] MEDS: MEROPENEM 500 MG VIAL IV SCH ×4 (00:20→17:36)
[2018-07-02] MEDS: VANCOMYCIN 1GM/NS 250 ML 250 ML IV SCH ×2 (01:45→13:45)
[2018-07-02] MEDS: PROMETHAZINE 12.5MG/ NACL 0.9% 12.5 MG/50 ML BAG IV PRN ×3 (03:33→22:54)
[2018-07-02 05:25] LABS: BASOPHILS % 0.4 % (0.0-1.0); EOSINOPHILS % 0.8 % (0.0-6.0); HEMATOCRIT 33.5 % (34.2-44.1); HEMOGLOBIN 9.9 g/dL (12.0-16.0); LYMPHOCYTES # (AUTO) 0.4 (1.0-3.2); LYMPHOCYTES % 7.5 % (18.0-39.1); MEAN CORPUSCULAR HEMOGLOBIN 23.6 pg (28-32); MEAN CORPUSCULAR HGB CONC 29.6 g/dL (31-35); MEAN CORPUSCULAR VOLUME 79.8 fL (81-99); MONOCYTES # (AUTO) 0.5 (0.2-0.8); MONOCYTES % 10.5 % (4.4-11.3); NEUTROPHILS # (AUTO) 3.8 (2.1-6.9); NEUTROPHILS % 79.3 % (38.7-80.0); PLATELET COUNT 64 x10e3/uL (140-360); RED CELL DISTRIBUTION WIDTH 23.3 % (11.7-14.4)
[2018-07-02 05:37] LABS: ANION GAP 11.2 mmol/L (8-16); BLOOD UREA NITROGEN 14 mg/dL (7-26); BUN/CREATININE RATIO 24 (6-25); CALCIUM 8.4 mg/dL (8.4-10.2); CARBON DIOXIDE 20 mmol/L (22-29); CHLORIDE 111 mmol/L (98-107); CREATININE, SERUM 0.58 mg/dL (0.57-1.11); EST GLOMERULAR FILTRATION RATE > 60 ML/MIN (60-); GLUCOSE 106 mg/dL (74-118); MAGNESIUM 1.5 MG/DL (1.3-2.1); POTASSIUM 3.2 mmol/L (3.5-5.1); SODIUM 139 mmol/L (136-145)
[2018-07-02] MEDS: DEXTROSE 5%/0.45% SOD CHL 1,000 ML IV SCH (06:58)
[2018-07-02] MEDS: PANTOPRAZOLE 40 MG 10ML VIAL IV SCH ×2 (09:00→17:00)
--- NOTE | 2018-07-02 09:18 | Progress Note ---
DATE: July 02, 2018 Patient was seen and examined today. Patient appeared comfortable. No worsening events noted. So far, condition is improving. PHYSICAL EXAMINATION GENERAL: Alert, awake and communicative. HEENT: Normocephalic and atraumatic. Sclerae pink. Conjunctivae clear. NECK: Supple. CHEST: Decreased breath sounds at the bases. CARDIOVASCULAR: Regular rate and rhythm. EXTREMITIES: No edema. LABS AND IMAGING: Reviewed. ASSESSMENT AND PLAN: The patient with a history of chronic liver disease with portal hypertension, cerebrovascular accident, splenomegaly, admitted with a strangulated hernia and required umbilical repair and small bowel repair. She also has coagulopathy, anemia, pancytopenia. The patient has required multiple blood products. Clinical condition has improved. Current hemoglobin is 9.9 with platelet count of 64,000. White cell count is also elevated. At this point, will continue current antibiotics. Do not recommend any hematological intervention. Will follow the patient closely. Job#: [id number] RADHA
[2018-07-02] MEDS ORDERED: FUROSEMIDE 20 MG TAB PO ONE (10:15)
[2018-07-02] MEDS ORDERED: POTASSIUM CHLORIDE 20 MEQ TAB CR PO STA (10:36)
--- NOTE | 2018-07-02 11:39 | Diagnostic Imaging Report ---
EXAM: Single AP view of the chest (Portable). COMPARISON: Chest radiograph 07/01/2018 INDICATION: ^CONGESTION ^[id number] ^1100 FINDINGS: Single portable AP view of the chest. The visualized bones and soft tissues, cardiac silhouette lungs, pleura appear unchanged. Mild deformity of the lower rib cage may be posttraumatic or degenerative. This is unchanged. IMPRESSION: 1. Lines/tubes: Unchanged position of the right PICC. 2. Persistent bilateral pulmonary edema with large right pleural effusion. 3. Stable mild enlargement of the cardiac silhouette. Signed by: Dr. Marlene Redd M.D. on 07/02/2018 11:36 AM
[2018-07-02] MEDS: GUAIFENESIN 600MG/DEXTROMETHORPHAN 30MG TABSR PO SCH (17:00)
[2018-07-02] MEDS: ALBUTEROL/IPRATROPIUM 3 ML NEB NEB PRN (19:25)
[2018-07-03] VITALS (10 sets, daily range): BP systolic 129–167; BP diastolic 60–80
[2018-07-03] MEDS: MEROPENEM 500 MG VIAL IV SCH ×4 (00:10→18:40)
[2018-07-03] MEDS: VANCOMYCIN 1GM/NS 250 ML 250 ML IV SCH ×2 (01:46→14:30)
[2018-07-03] MEDS: DEXTROSE 5%/0.45% SOD CHL 1,000 ML IV SCH ×2 (02:45→21:45)
[2018-07-03] MEDS: PROMETHAZINE 12.5MG/ NACL 0.9% 12.5 MG/50 ML BAG IV PRN ×2 (03:52→09:05)
[2018-07-03 05:38] LABS: BASOPHILS % 0.2 % (0.0-1.0); EOSINOPHILS # (AUTO) 0.1 (0.0-0.4); HEMATOCRIT 30.7 % (34.2-44.1); HEMOGLOBIN 9.4 g/dL (12.0-16.0); LYMPHOCYTES # (AUTO) 0.4 (1.0-3.2); LYMPHOCYTES % 8.6 % (18.0-39.1); MEAN CORPUSCULAR HEMOGLOBIN 23.7 pg (28-32); MEAN CORPUSCULAR HGB CONC 30.6 g/dL (31-35); MEAN CORPUSCULAR VOLUME 77.3 fL (81-99); MONOCYTES # (AUTO) 0.5 (0.2-0.8); MONOCYTES % 12.3 % (4.4-11.3); NEUTROPHILS % 74.7 % (38.7-80.0); PLATELET COUNT 64 x10e3/uL (140-360); RED BLOOD COUNT 3.97 x10e6/uL (3.6-5.1)
[2018-07-03 05:50] LABS: ANION GAP 12.8 mmol/L (8-16); BLOOD UREA NITROGEN 9 mg/dL (7-26); BUN/CREATININE RATIO 16 (6-25); CARBON DIOXIDE 25 mmol/L (22-29); CHLORIDE 106 mmol/L (98-107); CREATININE, SERUM 0.56 mg/dL (0.57-1.11); EST GLOMERULAR FILTRATION RATE > 60 ML/MIN (60-); GLUCOSE 97 mg/dL (74-118); MAGNESIUM 1.3 MG/DL (1.3-2.1); SODIUM 141 mmol/L (136-145)
[2018-07-03 05:58] LABS: POTASSIUM 2.8 mmol/L (3.5-5.1)
[2018-07-03] MEDS ORDERED: POTASSIUM CHLORIDE 20 MEQ TAB CR PO STA ×2 (06:15→12:47)
[2018-07-03] MEDS: ONDANSETRON HCL INJ 2 MG/ML VIAL IV PRN ×2 (06:48→18:40)
[2018-07-03] MEDS ORDERED: MAGNESIUM SULF 1GRAM/DEXTROSE 100 ML IV ONE (07:00)
[2018-07-03] MEDS: ALBUTEROL/IPRATROPIUM 3 ML NEB NEB PRN (07:40)
[2018-07-03] MEDS ORDERED: POTASSIUM CHLORIDE 20 MEQ TAB CR PO ONE (08:15)
[2018-07-03 09:04] LABS: EOSINOPHILS % (MANUAL) 1 % (0-7); LYMPHOCYTES % (MANUAL) 7 % (19-48); MONOCYTES % (MANUAL) 10 % (3.4-9.0); MYELOCYTES % (MANUAL) 3 % (0-0); NEUTROPHILS % (MANUAL) 79 % (40-74)
[2018-07-03 09:05] LABS: ANISOCYTOSIS MODERATE; HYPOCHROMASIA MODERATE; PLATELET ESTIMATE MODERATELY DECREASED; PLATELET MORPHOLOGY COMMENT NORMAL; POIKILOCYTOSIS SLIGHT; RBC MORPHOLOGY COMMENT ABNORMAL
[2018-07-03] MEDS: HYDROMORPHONE 2MG/ML 2 MG/ML ML IV PRN ×3 (09:05→18:40)
[2018-07-03] MEDS: PANTOPRAZOLE 40 MG 10ML VIAL IV SCH ×2 (09:18→18:40)
[2018-07-03] MEDS: GUAIFENESIN 600MG/DEXTROMETHORPHAN 30MG TABSR PO SCH ×2 (09:18→18:40)
--- NOTE | 2018-07-03 10:49 | Progress Note ---
DATE: July 03, 2018 Patient was seen and examined today. She appears comfortable. Clinical condition is improved with no evidence of any bleeding. PHYSICAL EXAMINATION GENERAL: Alert, awake and communicative. HEENT: Normocephalic and atraumatic. Sclerae pale. Conjunctivae clear. NECK: Supple. CHEST: Decreased breath sounds at the bases. CARDIOVASCULAR: Regular rate and rhythm. ABDOMEN: Mildly tender. EXTREMITIES: No edema. DIAL EQUIPMENT ENGINEER: Intact. SKIN: Some bruises. LABS AND IMAGING: Reviewed. ASSESSMENT AND PLAN: Patient with a history of multiple medical conditions. I am currently following for pancytopenia and anemia secondary to chronic liver disease with portal hypertension and splenomegaly. The patient is clinically doing better. Current count is stable. No worsening events noted. No evidence of any bleeding. Hemoglobin improved. RECOMMENDATIONS: Continue current care. Try to avoid thrombocytopenic medications. Will monitor the patient closely. Job#: [id number] RADHA
[2018-07-03] MEDS ORDERED: FUROSEMIDE INJ 10 MG/ML 4 ML VIAL IV ONE (13:00)
[2018-07-03 13:28] LABS: INR 1.64; PROTHROMBIN TIME 20.8 seconds (11.9-14.5)
[2018-07-03 13:29] LABS: PARTIAL THROMBOPLASTIN TIME 30.9 seconds (23.8-35.5)
--- NOTE | 2018-07-03 18:06 | Diagnostic Imaging Report ---
EXAM: Single AP view of the chest (Portable). COMPARISON: Chest radiograph 07/03/2018 at 11:08 AM hours. INDICATION: post Thoracentesis FINDINGS: Single portable AP view of the chest. The visualized bones and soft tissues, cardiac silhouette lungs, pleura appear unchanged. Mild deformity of the lower rib cage may be posttraumatic or degenerative. This is unchanged. IMPRESSION: Significant interval decrease in right pleural effusion status post thoracentesis. No pneumothorax. Otherwise no significant change includin. Lines/tubes: Unchanged position of the right PICC. 2. Persistent bilateral pulmonary edema. 3. Stable mild enlargement of the cardiac silhouette. Signed by: Dr. Mery Baron M.D. on 07/03/2018 6:03 PM
[2018-07-03 18:08] LABS: BODY FLUID APPEARANCE TURBID; BODY FLUID COLOR RED; BODY FLUID TYPE PLEURAL
[2018-07-03] MEDS: METOCLOPRAMIDE HCL 10 MG/2ML VIAL IV SCH ×2 (18:40→21:45)
[2018-07-03] MEDS: OYST-CAL-D 500MG TABLET PO SCH (18:40)
[2018-07-03 19:10] LABS: RBC,BODY FLUID 33715 cells/uL; WBC,BODY FLUID 7095 cells/uL
[2018-07-03 19:34] LABS: BODY FLUID APPEARANCE SL.CLOUDY; BODY FLUID COLOR YELLOW; BODY FLUID TYPE PERITONEAL; RBC,BODY FLUID 304 cells/uL; WBC,BODY FLUID 63 cells/uL
[2018-07-03 19:40] LABS: LYMPHOCYTES,BODY FLUID 10 %; MONO/MACROPHG,BODY FLUID 2 %; NEUTROPHILS,BODY FLUID 85 %; OTHER CELLS,BODY FLUID 3 %
[2018-07-03 20:19] LABS: LYMPHOCYTES,BODY FLUID 3 %; MONO/MACROPHG,BODY FLUID 21 %; NEUTROPHILS,BODY FLUID 68 %; OTHER CELLS,BODY FLUID 8 %
[2018-07-04] VITALS (7 sets, daily range): BP systolic 131–165; BP diastolic 59–92
[2018-07-04] MEDS: MEROPENEM 500 MG VIAL IV SCH ×5 (00:10→23:00)
[2018-07-04] MEDS: ONDANSETRON HCL INJ 2 MG/ML VIAL IV PRN ×3 (00:27→08:27)
[2018-07-04] MEDS: HYDROMORPHONE 2MG/ML 2 MG/ML ML IV PRN ×4 (00:27→21:30)
[2018-07-04] MEDS: VANCOMYCIN 1GM/NS 250 ML 250 ML IV SCH ×2 (01:55→13:45)
[2018-07-04 04:08] LABS: BASOPHILS % 0.7 % (0.0-1.0); EOSINOPHILS # (AUTO) 0.2 (0.0-0.4); EOSINOPHILS % 3.1 % (0.0-6.0); HEMATOCRIT 32.6 % (34.2-44.1); LYMPHOCYTES # (AUTO) 0.6 (1.0-3.2); LYMPHOCYTES % 10.5 % (18.0-39.1); MEAN CORPUSCULAR HEMOGLOBIN 23.4 pg (28-32); MEAN CORPUSCULAR HGB CONC 30.7 g/dL (31-35); MEAN CORPUSCULAR VOLUME 76.2 fL (81-99); MONOCYTES # (AUTO) 0.8 (0.2-0.8); MONOCYTES % 12.8 % (4.4-11.3); NEUTROPHILS # (AUTO) 4.3 (2.1-6.9); NEUTROPHILS % 70.4 % (38.7-80.0); RED BLOOD COUNT 4.28 x10e6/uL (3.6-5.1); RED CELL DISTRIBUTION WIDTH 24.8 % (11.7-14.4)
[2018-07-04 04:12] LABS: PLATELET COUNT 46 x10e3/uL (140-360)
[2018-07-04 04:18] LABS: ANION GAP 11.4 mmol/L (8-16); BLOOD UREA NITROGEN 7 mg/dL (7-26); BUN/CREATININE RATIO 12 (6-25); CALCIUM 8.1 mg/dL (8.4-10.2); CARBON DIOXIDE 27 mmol/L (22-29); CHLORIDE 105 mmol/L (98-107); EST GLOMERULAR FILTRATION RATE > 60 ML/MIN (60-); GLUCOSE 100 mg/dL (74-118); MAGNESIUM 1.5 MG/DL (1.3-2.1); SODIUM 140 mmol/L (136-145)
[2018-07-04 04:32] LABS: POTASSIUM 3.4 mmol/L (3.5-5.1)
[2018-07-04 07:19] LABS: ANISOCYTOSIS SLIGHT; EOSINOPHILS % (MANUAL) 2 % (0-7); HYPOCHROMASIA SLIGHT; LYMPHOCYTES % (MANUAL) 7 % (19-48); MICROCYTOSIS SLIGHT; MONOCYTES % (MANUAL) 9 % (3.4-9.0); MYELOCYTES % (MANUAL) 1 % (0-0); NEUTROPHILS % (MANUAL) 78 % (40-74); PLATELET ESTIMATE MODERATELY DECREASED; PLATELET MORPHOLOGY COMMENT NORMAL; RBC MORPHOLOGY COMMENT NORMAL
[2018-07-04] MEDS: METOCLOPRAMIDE HCL 10 MG/2ML VIAL IV SCH ×4 (08:31→20:10)
--- NOTE | 2018-07-04 08:37 | Progress Note ---
DATE: July 04, 2018 SUBJECTIVE: Patient was seen and examined today. Patient appeared comfortable. No evidence of any bleeding. Patient had worsening thrombocytopenia. Platelet count went down to 47. No worsening bruising or ecchymosis noted. PHYSICAL EXAMINATION GENERAL: Alert, awake . HEENT: Normocephalic, atraumatic. Sclerae pale. Conjunctivae clear. NECK: Supple. CHEST: Decreased breath sounds at the bases. CARDIOVASCULAR: Regular rate and rhythm. ABDOMEN: Soft. EXTREMITIES: No edema. LABS AND IMAGING: Reviewed. ASSESSMENT AND PLAN: Patient has been recently diagnosed with incarcerated hernia with past history of liver cirrhosis and pancytopenia. Clinical condition is still critical, but is still improving. Platelet count is still trending downward secondary to pancytopenia. RECOMMENDATIONS: Continue close observation. Try to avoid thrombocytopenic medications. I do not recommend any transfusion. At this point, we will continue to manage and follow patient closely. Job#: [id number] ELVIS
[2018-07-04] MEDS: PANTOPRAZOLE 40 MG 10ML VIAL IV SCH ×2 (08:46→17:05)
[2018-07-04] MEDS: GUAIFENESIN 600MG/DEXTROMETHORPHAN 30MG TABSR PO SCH ×2 (08:46→17:05)
[2018-07-04] MEDS: OYST-CAL-D 500MG TABLET PO SCH ×2 (08:46→17:05)
[2018-07-04] MEDS: NICOTINE 7 MG PATCH TOP SCH (11:00)
[2018-07-04] MEDS ORDERED: POTASSIUM CHLORIDE 20 MEQ TAB CR PO ONE (11:30)
[2018-07-04] MEDS: DEXTROSE 5%/0.45% SOD CHL 1,000 ML IV SCH (20:09)
[2018-07-04] MEDS: PROMETHAZINE 12.5MG/ NACL 0.9% 12.5 MG/50 ML BAG IV PRN (21:30)
[2018-07-05] VITALS (7 sets, daily range): BP systolic 143–149; BP diastolic 70–79
[2018-07-05] MEDS: VANCOMYCIN 1GM/NS 250 ML 250 ML IV SCH ×2 (02:52→13:45)
[2018-07-05] MEDS: ONDANSETRON HCL INJ 2 MG/ML VIAL IV PRN (02:53)
[2018-07-05] MEDS: HYDROMORPHONE 2MG/ML 2 MG/ML ML IV PRN ×2 (02:53→07:50)
[2018-07-05] MEDS: MEROPENEM 500 MG VIAL IV SCH ×4 (05:05→23:13)
[2018-07-05 05:10] LABS: BASOPHILS % 0.6 % (0.0-1.0); EOSINOPHILS # (AUTO) 0.1 (0.0-0.4); EOSINOPHILS % 3.2 % (0.0-6.0); HEMATOCRIT 31.4 % (34.2-44.1); HEMOGLOBIN 9.6 g/dL (12.0-16.0); LYMPHOCYTES # (AUTO) 0.4 (1.0-3.2); LYMPHOCYTES % 12.9 % (18.0-39.1); MEAN CORPUSCULAR HEMOGLOBIN 23.9 pg (28-32); MEAN CORPUSCULAR HGB CONC 30.6 g/dL (31-35); MEAN CORPUSCULAR VOLUME 78.1 fL (81-99); MONOCYTES # (AUTO) 0.4 (0.2-0.8); MONOCYTES % 12.3 % (4.4-11.3); NEUTROPHILS # (AUTO) 2.3 (2.1-6.9); NEUTROPHILS % 67.5 % (38.7-80.0); PLATELET COUNT 68 x10e3/uL (140-360); RED BLOOD COUNT 4.02 x10e6/uL (3.6-5.1); RED CELL DISTRIBUTION WIDTH 25.3 % (11.7-14.4)
[2018-07-05 05:29] LABS: BLOOD UREA NITROGEN 6 mg/dL (7-26); BUN/CREATININE RATIO 11 (6-25); CALCIUM 7.9 mg/dL (8.4-10.2); CARBON DIOXIDE 27 mmol/L (22-29); CHLORIDE 107 mmol/L (98-107); CREATININE, SERUM 0.54 mg/dL (0.57-1.11); EST GLOMERULAR FILTRATION RATE > 60 ML/MIN (60-); GLUCOSE 117 mg/dL (74-118); MAGNESIUM 1.5 MG/DL (1.3-2.1); SODIUM 141 mmol/L (136-145)
[2018-07-05] MEDS: METOCLOPRAMIDE HCL 10 MG/2ML VIAL IV SCH ×2 (07:30→11:30)
[2018-07-05 08:48] LABS: ANISOCYTOSIS SLIGHT; BAND NEUTROPHILS % (MANUAL) 2 %; EOSINOPHILS % (MANUAL) 2 % (0-7); LYMPHOCYTES % (MANUAL) 20 % (19-48); MONOCYTES % (MANUAL) 4 % (3.4-9.0); NEUTROPHILS % (MANUAL) 72 % (40-74); PLATELET ESTIMATE SLIGHTLY DECREASED; PLATELET MORPHOLOGY COMMENT NORMAL; RBC MORPHOLOGY COMMENT ABNORMAL
[2018-07-05] MEDS: GUAIFENESIN 600MG/DEXTROMETHORPHAN 30MG TABSR PO SCH ×2 (09:00→17:00)
[2018-07-05] MEDS: OYST-CAL-D 500MG TABLET PO SCH ×2 (09:00→17:00)
[2018-07-05] MEDS: NICOTINE 7 MG PATCH TOP SCH (09:00)
[2018-07-05] MEDS: PANTOPRAZOLE 40 MG 10ML VIAL IV SCH ×2 (09:00→17:00)
[2018-07-05] MEDS ORDERED: MORPHINE SULFATE INJ 4 MG/ML INJ IV PRN (09:45)
[2018-07-05] MEDS ORDERED: POTASSIUM CHLORIDE 20 MEQ TAB CR PO ONE (10:00)
[2018-07-05] MEDS ORDERED: CALCIUM GLUCONATE 10% INJ 9.3 MEQ in SODIUM CHLORIDE 0.9% 100 ML 100 ML IV ONE (10:00)
[2018-07-05] MEDS ORDERED: FUROSEMIDE INJ 10 MG/ML 4 ML VIAL IV ONE (10:30)
--- NOTE | 2018-07-05 11:38 | Diagnostic Imaging Report ---
Abdomen/KUB INDICATION: Abdominal pain and bloating, incarcerated umbilical hernia COMPARISON: CT abdomen/pelvis 06/28/2018. FINDINGS: Supine image obtained at 1114 hours. Medical Devices: None Bowel: Mildly distended small bowel loop in the left abdomen measures 2.7 cm. Other small bowel loops are normal in diameter. Bowel gas pattern is unremarkable. Little air in the large bowel. No pneumatosis. There is suggestion of a stool ball projecting over the pubic symphysis. Calcifications: None. Organomegaly: None. Bones: Unremarkable. IMPRESSION: Mildly distended loop of small bowel in the left hemiabdomen may be the result of ileus or partial small bowel obstruction. Little large bowel air. Signed by: Dr. Claudio Leggett MD on 07/05/2018 11:34 AM
[2018-07-05] MEDS ORDERED: VANCOMYCIN 250MG/5ML ORAL SOLN PO SCH (12:00)
[2018-07-05] MEDS: HYDROCODONE/APAP 5MG-325MG TAB PO PRN ×2 (13:55→21:55)
[2018-07-06] VITALS (9 sets, daily range): BP systolic 131–158; BP diastolic 59–83
[2018-07-06] MEDS: ONDANSETRON HCL INJ 2 MG/ML VIAL IV PRN ×3 (01:03→23:54)
[2018-07-06 04:10] LABS: BASOPHILS % 0.3 % (0.0-1.0); EOSINOPHILS # (AUTO) 0.1 (0.0-0.4); EOSINOPHILS % 2.1 % (0.0-6.0); HEMATOCRIT 29.8 % (34.2-44.1); HEMOGLOBIN 9.4 g/dL (12.0-16.0); LYMPHOCYTES # (AUTO) 0.5 (1.0-3.2); LYMPHOCYTES % 13.6 % (18.0-39.1); MEAN CORPUSCULAR HGB CONC 31.5 g/dL (31-35); MONOCYTES # (AUTO) 0.3 (0.2-0.8); NEUTROPHILS # (AUTO) 2.4 (2.1-6.9); NEUTROPHILS % 72.2 % (38.7-80.0); RED BLOOD COUNT 3.92 x10e6/uL (3.6-5.1)
[2018-07-06 04:12] LABS: PLATELET COUNT 59 x10e3/uL (140-360)
[2018-07-06 04:35] LABS: ANION GAP 10.7 mmol/L (8-16); BLOOD UREA NITROGEN 5 mg/dL (7-26); BUN/CREATININE RATIO 10 (6-25); CARBON DIOXIDE 27 mmol/L (22-29); CHLORIDE 104 mmol/L (98-107); CREATININE, SERUM 0.49 mg/dL (0.57-1.11); EST GLOMERULAR FILTRATION RATE > 60 ML/MIN (60-); GLUCOSE 83 mg/dL (74-118); MAGNESIUM 1.2 MG/DL (1.3-2.1); SODIUM 139 mmol/L (136-145)
[2018-07-06 05:18] LABS: POTASSIUM 2.7 mmol/L (3.5-5.1)
[2018-07-06] MEDS ORDERED: POTASSIUM CHLORIDE 20 MEQ TAB CR PO STA (05:43)
[2018-07-06] MEDS ORDERED: CHOLESTYRAMINE 4 GM PACKET PO SCH (05:45)
[2018-07-06] MEDS: MEROPENEM 500 MG VIAL IV SCH ×4 (05:59→23:54)
[2018-07-06 06:23] LABS: ANISOCYTOSIS 2; LYMPHOCYTES % (MANUAL) 4 % (19-48); MONOCYTES % (MANUAL) 2 % (3.4-9.0); NEUTROPHILS % (MANUAL) 94 % (40-74)
[2018-07-06 06:24] LABS: ELLIPTOCYTE, RBC 1; POIKILOCYTOSIS 1; POLYCHROMASIA 1
--- NOTE | 2018-07-06 07:35 | Diagnostic Imaging Report ---
Procedure: Ultrasound-guided right thoracentesis alumina refinery operator: Dr. Jed Dubose Pre-operative diagnosis: Right pleural effusion Post-operative diagnosis: Right pleural effusion Local sedation: 10 cc of 1% subcutaneous lidocaine Estimated blood loss: Minimal Implants: None TECHNIQUE/FINDINGS: Informed consent was obtained from the patient and documented in the medical record. The patient was placed in the lateral decubitus position. The right posterolateral chest was prepped and draped in standard sterile fashion. 1% lidocaine was infiltrated into the skin and subcutaneous tissues for local anesthesia. Preliminary ultrasound demonstrated a large right pleural effusion. Then under sonographic guidance, a 7 Fr catheter was advanced into the right pleural space. The catheter was advanced off the needle and connected to vacuum bottle with subsequent evacuation of 1200 cc of serous fluid. The catheter was removed and a sterile, occlusive dressing was applied. The patient tolerated the procedure well. IMPRESSION: Ultrasound-guided right thoracentesis with evacuation of 1200 cc of serous fluid. Signed by: Dr. Jed Dubose MD on 07/06/2018 7:32 AM
--- NOTE | 2018-07-06 07:35 | Diagnostic Imaging Report ---
Procedure: Ultrasound-guided diagnostic paracentesis dye reel operator helper: Jed Dubose MD Pre-operative diagnosis: Small volume ascites Post-operative diagnosis: Small volume ascites Conscious Sedation: The patient's heart rate and pulse oximetry were continuously monitored by the IR nurse. Additional Medications: Lidocaine 1% for local anesthesia Estimated blood loss: None. Specimens: 10 cc of serous ascites Implants: None TECHNIQUE/FINDINGS: Informed consent was obtained from the patient and documented in the medical record. The patient was placed in the supine position. Initial ultrasound demonstrated small volume lower abdominal ascites. The right lower abdomen was prepped and draped in standard sterile fashion. 1% lidocaine was infiltrated into the skin and subcutaneous tissues for local anesthesia. Then under continuous sonographic guidance, a 20 gauge spine needle was advanced into the peritoneal space. A total of 25 cc of serous fluid was aspirated. The needle was removed. Sterile dressing was applied. Sample was sent to the lab. The patient tolerated the procedure well. IMPRESSION: Ultrasound-guided diagnostic paracentesis with removal of 25 cc of serous fluid. Signed by: Dr. Jed Dubose MD on 07/06/2018 7:32 AM
[2018-07-06] MEDS ORDERED: CALCIUM GLUCONATE 10% INJ 9.3 MEQ in SODIUM CHLORIDE 0.9% 100 ML 100 ML IV ONE (08:15)
[2018-07-06] MEDS ORDERED: MAGNESIUM SULFATE 2GM/50ML 50 ML IV ONE (08:30)
[2018-07-06] MEDS: GUAIFENESIN 600MG/DEXTROMETHORPHAN 30MG TABSR PO SCH ×2 (09:00→17:00)
[2018-07-06] MEDS: OYST-CAL-D 500MG TABLET PO SCH ×2 (09:00→17:00)
[2018-07-06] MEDS: PANTOPRAZOLE 40 MG 10ML VIAL IV SCH ×2 (09:00→16:42)
[2018-07-06] MEDS: MAGNESIUM OXIDE 400 MG TAB PO SCH ×2 (09:00→17:00)
[2018-07-06] MEDS: NICOTINE 7 MG PATCH TOP SCH (09:00)
--- NOTE | 2018-07-06 09:00 | Progress Note ---
DATE: July 06, 2018 Patient was seen and examined today. She appears better. Current count improving. No worsening events noted. She still complains of mild abdominal pain. PHYSICAL EXAMINATION GENERAL: Alert, awake and communicative. HEENT: Normocephalic and atraumatic. Sclerae pink. Conjunctivae clear. NECK: Supple. CHEST: Decreased breath sounds at the bases. ABDOMEN: Soft. EXTREMITIES: No edema. LABS AND IMAGING: Reviewed. ASSESSMENT AND PLAN: Patient with a history of multiple medical conditions. I am currently following for anemia and pancytopenia. The patient clinically doing better. Current count stable. Continue current care. Incarcerated hernia. Following with surgery very closely. Will continue remaining care. Will follow the patient closely. Job#: [id number] RADHA
--- NOTE | 2018-07-06 09:09 | Diagnostic Imaging Report ---
PROCEDURE:X-RAY ABDOMEN - KUB COMPARISON:KUB 07/05/[address] Abdomen/Pelvis 06/28/2018. INDICATIONS:RULE OUT SMALL BOWEL OBSTRUCTION FINDINGS: Mildly distended small bowel loop measuring up to 3 cm. No air fluid levels on upright view. Some air is seen in a non-distended colon. Anastomotic clips project over the right abdomen. There are no calcifications projected over the renal shadows, expected course of the ureters or bladder. There are no acute osseous abnormalities. The lung bases are clear. CONCLUSION: Possible partial small bowel obstruction with mildly dilated small bowel loop and air within a non-distended colon. Dictated by: MANOHAR ARAYA M.D. on 07/06/2018 at 9:18 Electronically approved by: MANOHAR ARAYA M.D. on 07/06/2018 at 9:18
[2018-07-06] MEDS: D5.45%NS/KCL 20MEQ 1,000 ML IV SCH (09:15)
[2018-07-06] MEDS ORDERED: MORPHINE SULFATE INJ 4 MG/ML INJ IV PRN (09:30)
[2018-07-06] MEDS ORDERED: ONDANSETRON HCL INJ 2 MG/ML VIAL IV STA (10:40)
[2018-07-06] MEDS ORDERED: PANTOPRAZOLE 40 MG 10ML VIAL IV STA (10:40)
[2018-07-06] MEDS ORDERED: PANTOPRAZOLE INJ 40 MG in SODIUM CHLORIDE 0.9% 50ML 50 ML IV SCH (10:45)
[2018-07-06] MEDS: MORPHINE SULFATE 2 MG/ML SYR IV PRN ×4 (11:10→23:54)
[2018-07-06] MEDS: PANTOPRAZOL 40MG/SOD CHL 0.9% 50 ML IV SCH ×3 (12:00→23:00)
[2018-07-07] VITALS (7 sets, daily range): BP systolic 123–154; BP diastolic 67–80
[2018-07-07] MEDS: MORPHINE SULFATE 2 MG/ML SYR IV PRN (04:15)
[2018-07-07] MEDS: ONDANSETRON HCL INJ 2 MG/ML VIAL IV PRN ×3 (04:15→17:59)
[2018-07-07] MEDS: PANTOPRAZOL 40MG/SOD CHL 0.9% 50 ML IV SCH ×4 (04:30→17:35)
[2018-07-07 04:50] LABS: BASOPHILS % 0.2 % (0.0-1.0); EOSINOPHILS # (AUTO) 0.1 (0.0-0.4); EOSINOPHILS % 1.7 % (0.0-6.0); HEMATOCRIT 31.1 % (34.2-44.1); HEMOGLOBIN 9.7 g/dL (12.0-16.0); LYMPHOCYTES # (AUTO) 0.5 (1.0-3.2); LYMPHOCYTES % 11.9 % (18.0-39.1); MEAN CORPUSCULAR HEMOGLOBIN 24.1 pg (28-32); MEAN CORPUSCULAR HGB CONC 31.2 g/dL (31-35); MEAN CORPUSCULAR VOLUME 77.4 fL (81-99); MONOCYTES # (AUTO) 0.5 (0.2-0.8); MONOCYTES % 11.4 % (4.4-11.3); NEUTROPHILS # (AUTO) 2.8 (2.1-6.9); NEUTROPHILS % 70.8 % (38.7-80.0); PLATELET COUNT 60 x10e3/uL (140-360); RED BLOOD COUNT 4.02 x10e6/uL (3.6-5.1); RED CELL DISTRIBUTION WIDTH 27.6 % (11.7-14.4)
[2018-07-07 05:04] LABS: ANION GAP 11.9 mmol/L (8-16); BLOOD UREA NITROGEN 5 mg/dL (7-26); BUN/CREATININE RATIO 9 (6-25); CALCIUM 8.2 mg/dL (8.4-10.2); CARBON DIOXIDE 28 mmol/L (22-29); CHLORIDE 101 mmol/L (98-107); CREATININE, SERUM 0.58 mg/dL (0.57-1.11); EST GLOMERULAR FILTRATION RATE > 60 ML/MIN (60-); GLUCOSE 108 mg/dL (74-118); MAGNESIUM 1.6 MG/DL (1.3-2.1); SODIUM 138 mmol/L (136-145)
[2018-07-07 05:18] LABS: POTASSIUM 2.9 mmol/L (3.5-5.1)
[2018-07-07] MEDS: MEROPENEM 500 MG VIAL IV SCH ×3 (05:41→17:35)
[2018-07-07] MEDS: D5.45%NS/KCL 20MEQ 1,000 ML IV SCH (05:41)
[2018-07-07 07:28] LABS: ALBUMIN 2.7 g/dL (3.5-5.0); BILIRUBIN,DIRECT 1.7 mg/dL (0.0-0.5)
[2018-07-07] MEDS ORDERED: POTASSIUM CHLORIDE 20MEQ/100ML 300 ML IV ONE (07:30)
[2018-07-07] MEDS ORDERED: CALCIUM GLUCONATE 10% INJ 9.3 MEQ in SODIUM CHLORIDE 0.9% 100 ML 100 ML IV ONE (07:30)
[2018-07-07 08:04] LABS: FOLATE 13.2 ng/mL (7.0-15.4)
[2018-07-07] MEDS: HYDROCODONE/APAP 5MG-325MG TAB PO PRN ×2 (08:34→21:02)
[2018-07-07 08:45] LABS: FERRITIN 98.97 ng/mL (4.63-204.00)
[2018-07-07] MEDS: RIFAXIMIN 550 MG TABLET PO SCH ×2 (09:00→20:53)
[2018-07-07] MEDS: OYST-CAL-D 500MG TABLET PO SCH ×2 (09:00→17:00)
[2018-07-07] MEDS: NICOTINE 7 MG PATCH TOP SCH (09:00)
[2018-07-07] MEDS: GUAIFENESIN 600MG/DEXTROMETHORPHAN 30MG TABSR PO SCH ×2 (09:00→17:00)
[2018-07-07] MEDS: MAGNESIUM OXIDE 400 MG TAB PO SCH ×2 (09:00→17:00)
--- NOTE | 2018-07-07 09:02 | Progress Note ---
DATE: July 07, 2018 Patient was seen and examined today. She appears comfortable. Still has persistent small-bowel obstruction. Last x-ray shows positive air-fluid levels. She also has anemia, thrombocytopenia, and currently CBC shows improvement in her counts. Clinical condition otherwise stable. PHYSICAL EXAMINATION GENERAL: Alert, awake and communicative. HEENT: Normocephalic and atraumatic. Sclerae pink. Conjunctivae clear. NECK: Supple. CHEST: Clear to auscultation. HEART: Regular rate and rhythm. ABDOMEN: Soft. EXTREMITIES: No edema. LABS AND IMAGING: . ASSESSMENT AND PLAN: The patient with a history of multiple medical conditions. I am currently following for pancytopenia and anemia. The patient's current count is stable. Clinically doing better. Continue current care. Small-bowel obstruction, status post surgery. Currently, conservative management. Is clinically doing better. Will follow the patient. Will continue remaining care. Will follow the patient. Job#: [id number] [place]
--- NOTE | 2018-07-07 09:40 | Diagnostic Imaging Report ---
PROCEDURE:X-RAY ABDOMEN - KUB COMPARISON:Patients [facility], DX, ABDOMEN-1VIEW (KUB), 07/05/2018, 11:11. INDICATIONS:SMALL BOWEL OBSTRUCTION FINDINGS: There are no dilated loops of small or large bowel to suggest obstruction. There are no masses or abnormal calcifications. Generalized haze of the abdomen is consistent with ascites. There is no evidence of free air. No acute osseous abnormalities are present. CONCLUSION: No bowel dilatation. Narayan Brunson D.O. Dictated by: Narayan Brunson D.O. on 07/07/2018 at 9:49 Electronically approved by: Narayan Brunson D.O. on 07/07/2018 at 9:49
[2018-07-07 11:04] LABS: EOSINOPHILS % (MANUAL) 2 % (0-7); LYMPHOCYTES % (MANUAL) 7 % (19-48); MONOCYTES % (MANUAL) 5 % (3.4-9.0); NEUTROPHILS % (MANUAL) 86 % (40-74); OVALOCYTES FEW; PLATELET ESTIMATE MODERATELY DECREASED; PLATELET MORPHOLOGY COMMENT NORMAL
[2018-07-07 11:05] LABS: TEAR DROP CELLS FEW
[2018-07-07] MEDS: MORPHINE SULFATE INJ 4 MG/ML INJ IV PRN (14:20)
[2018-07-08] VITALS (7 sets, daily range): BP systolic 123–172; BP diastolic 58–87
[2018-07-08] MEDS: MEROPENEM 500 MG VIAL IV SCH ×5 (00:09→23:59)
[2018-07-08] MEDS: PANTOPRAZOL 40MG/SOD CHL 0.9% 50 ML IV SCH ×5 (00:09→21:18)
[2018-07-08] MEDS: ONDANSETRON HCL INJ 2 MG/ML VIAL IV PRN ×3 (01:15→17:06)
[2018-07-08] MEDS: MORPHINE SULFATE INJ 4 MG/ML INJ IV PRN ×3 (01:15→17:05)
[2018-07-08 04:38] LABS: BASOPHILS % 0.4 % (0.0-1.0); EOSINOPHILS # (AUTO) 0.1 (0.0-0.4); HEMATOCRIT 29.6 % (34.2-44.1); LYMPHOCYTES # (AUTO) 0.3 (1.0-3.2); LYMPHOCYTES % 12.5 % (18.0-39.1); MEAN CORPUSCULAR HEMOGLOBIN 24.2 pg (28-32); MEAN CORPUSCULAR HGB CONC 30.4 g/dL (31-35); MEAN CORPUSCULAR VOLUME 79.6 fL (81-99); MONOCYTES # (AUTO) 0.3 (0.2-0.8); MONOCYTES % 10.9 % (4.4-11.3); NEUTROPHILS # (AUTO) 1.9 (2.1-6.9); NEUTROPHILS % 72.1 % (38.7-80.0); RED BLOOD COUNT 3.72 x10e6/uL (3.6-5.1); RED CELL DISTRIBUTION WIDTH 27.9 % (11.7-14.4)
[2018-07-08 04:52] LABS: INR 1.92; PROTHROMBIN TIME 23.5 seconds (11.9-14.5)
[2018-07-08 04:53] LABS: PARTIAL THROMBOPLASTIN TIME 36.5 seconds (23.8-35.5)
[2018-07-08 05:00] LABS: ANION GAP 9.5 mmol/L (8-16); BLOOD UREA NITROGEN < 5 mg/dL (7-26); CALCIUM 7.9 mg/dL (8.4-10.2); CARBON DIOXIDE 27 mmol/L (22-29); CHLORIDE 105 mmol/L (98-107); CREATININE, SERUM 0.55 mg/dL (0.57-1.11); EST GLOMERULAR FILTRATION RATE > 60 ML/MIN (60-); GLUCOSE 105 mg/dL (74-118); MAGNESIUM 1.5 MG/DL (1.3-2.1); POTASSIUM 3.5 mmol/L (3.5-5.1); SODIUM 138 mmol/L (136-145)
[2018-07-08] MEDS: D5.45%NS/KCL 20MEQ 1,000 ML IV SCH ×2 (05:06→21:19)
[2018-07-08] MEDS: HYDROCODONE/APAP 5MG-325MG TAB PO PRN ×3 (05:06→22:45)
[2018-07-08] MEDS: PROMETHAZINE 12.5MG/ NACL 0.9% 12.5 MG/50 ML BAG IV PRN ×2 (05:06→22:28)
[2018-07-08 05:23] LABS: BUN/CREATININE RATIO 9 (6-25)
[2018-07-08 06:06] LABS: PLATELET COUNT 32 x10e3/uL (140-360)
[2018-07-08 08:21] LABS: BAND NEUTROPHILS % (MANUAL) 2 %; LYMPHOCYTES % (MANUAL) 7 % (19-48); METAMYELOCYTES % (MANUAL) 1 % (0-0); MONOCYTES % (MANUAL) 8 % (3.4-9.0); NEUTROPHILS % (MANUAL) 82 % (40-74); RBC MORPHOLOGY COMMENT NORMAL
[2018-07-08 08:22] LABS: PLATELET ESTIMATE MARKEDLY DECREASED; PLATELET MORPHOLOGY COMMENT NORMAL
[2018-07-08] MEDS: MAGNESIUM OXIDE 400 MG TAB PO SCH ×2 (09:37→15:51)
[2018-07-08] MEDS: GUAIFENESIN 600MG/DEXTROMETHORPHAN 30MG TABSR PO SCH ×2 (09:37→15:51)
[2018-07-08] MEDS: OYST-CAL-D 500MG TABLET PO SCH ×2 (09:37→15:51)
[2018-07-08] MEDS: RIFAXIMIN 550 MG TABLET PO SCH ×2 (09:37→21:18)
[2018-07-08] MEDS: NICOTINE 7 MG PATCH TOP SCH (09:37)
[2018-07-08] MEDS ORDERED: CALCIUM GLUCONATE 10% INJ 9.3 MEQ in SODIUM CHLORIDE 0.9% 100 ML 100 ML IV ONE (10:30)
[2018-07-08] MEDS ORDERED: LOPERAMIDE HCL 2 MG CAP PO PRN (10:45)
--- NOTE | 2018-07-08 11:21 | Progress Note ---
DATE: July 08, 2018 Patient was seen and examined today. The patient appears comfortable, and she is doing better. She has thrombocytopenia but no evidence of any bleeding. White cell count is also trending downward. PHYSICAL EXAMINATION GENERAL: Alert, awake and communicative. HEENT: Normocephalic and atraumatic. Sclerae pink. Conjunctivae clear. NECK: Supple. CHEST: Decreased breath sounds. HEART: Regular rate and rhythm. ABDOMEN: Soft. EXTREMITIES: No edema. LAB DATA AND IMAGING: Reviewed. ASSESSMENT AND PLAN: chronic liver disease. supportive care. The patient thrombocytopenia with no evidence of any bleeding. At this point, recommendation is to Would not recommend any Neupogen at this time. well. Will follow the patient closely. Job#: [id number]
--- NOTE | 2018-07-08 11:33 | Diagnostic Imaging Report ---
Examination: Single AP view of the chest. COMPARISON: 07/03/2018 INDICATION: Rule out pneumonia DISCUSSION: Stable position of right upper extremity PICC. The tip projects over the low superior vena cava. Interval reaccumulation of moderate right pleural effusion with middle and lower lobe airspace disease. Left lung remains grossly clear. Stable cardiomediastinal contour with pulmonary venous congestion. Bilateral rib fracture deformities. IMPRESSION: Stable position of right upper extremity PICC. Interval reaccumulation of right pleural effusion similar to that seen on pre-thoracentesis radiograph 07/02/2018. Right middle and lower lobe airspace disease may reflect passive atelectasis or less likely multifocal infection. Signed by: Dr. Darwin Benavides M.D. on 07/08/2018 11:30 AM
[2018-07-08] MEDS ORDERED: HYDRALAZINE HCL 20 MG/ML VIAL IV PRN (12:15)
--- NOTE | 2018-07-08 12:17 | Diagnostic Imaging Report ---
Examination: Limited abdominal ultrasound. Clinical indication: Distention Comparison examination: CT abdomen and pelvis 06/28/2018. Technique: Transverse and longitudinal sonographic images of the 4 quadrants of the abdomen were obtained. Findings: Small volume ascites is noted, with the deepest individual pocket in the right mid abdomen/right lower quadrant. Impression: Small volume ascites. Signed by: Dr. Darwin Benavides M.D. on 07/08/2018 12:14 PM
[2018-07-08] MEDS: NIFEDIPINE CR 30 MG TAB PO SCH (12:46)
[2018-07-08] MEDS: CHOLESTYRAMINE 4 GM PACKET PO SCH ×2 (15:51→21:18)
[2018-07-08] MEDS: NYSTATIN 100,000 UNITS/GM CRM 30GM TUBE TOP SCH (21:45)
[2018-07-09] VITALS (7 sets, daily range): BP systolic 95–135; BP diastolic 51–91
[2018-07-09] MEDS: MORPHINE SULFATE INJ 4 MG/ML INJ IV PRN (02:05)
[2018-07-09] MEDS: PANTOPRAZOL 40MG/SOD CHL 0.9% 50 ML IV SCH ×5 (02:26→20:45)
[2018-07-09 05:15] LABS: ANION GAP 9.4 mmol/L (8-16); BLOOD UREA NITROGEN < 5 mg/dL (7-26); CALCIUM 8.1 mg/dL (8.4-10.2); CARBON DIOXIDE 27 mmol/L (22-29); CHLORIDE 104 mmol/L (98-107); CREATININE, SERUM 0.57 mg/dL (0.57-1.11); EST GLOMERULAR FILTRATION RATE > 60 ML/MIN (60-); GLUCOSE 88 mg/dL (74-118); MAGNESIUM 1.5 MG/DL (1.3-2.1); POTASSIUM 3.4 mmol/L (3.5-5.1); SODIUM 137 mmol/L (136-145)
[2018-07-09 05:26] LABS: BUN/CREATININE RATIO 9 (6-25)
[2018-07-09] MEDS: MEROPENEM 500 MG VIAL IV SCH ×3 (06:05→17:00)
[2018-07-09] MEDS: HYDROCODONE/APAP 5MG-325MG TAB PO PRN ×2 (06:23→17:00)
[2018-07-09 07:14] LABS: BASOPHILS % 0.7 % (0.0-1.0); EOSINOPHILS # (AUTO) 0.1 (0.0-0.4); EOSINOPHILS % 3.1 % (0.0-6.0); HEMATOCRIT 30.7 % (34.2-44.1); HEMOGLOBIN 9.5 g/dL (12.0-16.0); LYMPHOCYTES # (AUTO) 0.4 (1.0-3.2); LYMPHOCYTES % 9.4 % (18.0-39.1); MEAN CORPUSCULAR HEMOGLOBIN 24.5 pg (28-32); MEAN CORPUSCULAR HGB CONC 30.9 g/dL (31-35); MEAN CORPUSCULAR VOLUME 79.3 fL (81-99); MONOCYTES # (AUTO) 0.4 (0.2-0.8); MONOCYTES % 8.5 % (4.4-11.3); NEUTROPHILS # (AUTO) 3.5 (2.1-6.9); NEUTROPHILS % 77.4 % (38.7-80.0); RED BLOOD COUNT 3.87 x10e6/uL (3.6-5.1); RED CELL DISTRIBUTION WIDTH 28.3 % (11.7-14.4)
[2018-07-09 07:18] LABS: PLATELET COUNT 43 x10e3/uL (140-360)
[2018-07-09 07:25] LABS: BAND NEUTROPHILS % (MANUAL) 3 %; EOSINOPHILS % (MANUAL) 3 % (0-7); LYMPHOCYTES % (MANUAL) 7 % (19-48); METAMYELOCYTES % (MANUAL) 1 % (0-0); MONOCYTES % (MANUAL) 2 % (3.4-9.0); NEUTROPHILS % (MANUAL) 84 % (40-74)
[2018-07-09 07:26] LABS: PLATELET ESTIMATE MARKEDLY DECREASED; PLATELET MORPHOLOGY COMMENT NORMAL; RBC MORPHOLOGY COMMENT NORMAL
[2018-07-09] MEDS ORDERED: POTASSIUM CHLORIDE 20 MEQ TAB CR PO STA ×2 (08:34→08:44)
[2018-07-09] MEDS ORDERED: FUROSEMIDE INJ 10 MG/ML 4 ML VIAL IV ONE (08:45)
--- NOTE | 2018-07-09 09:14 | Progress Note ---
DATE: July 09, 2018 Patient was seen and examined today. Patient appeared comfortable. Clinically doing better. No worsening events noted. PHYSICAL EXAMINATION GENERAL: Alert, awake and communicative. HEENT: Normocephalic and atraumatic. Sclerae pink. Conjunctivae clear. NECK: Supple. CHEST: Decreased breath sounds at the bases. CARDIOVASCULAR: Regular rate and rhythm. ABDOMEN: Soft. EXTREMITIES: No edema. LABS AND IMAGING: Reviewed. ASSESSMENT AND PLAN: The patient with a history of multiple medical conditions. I am currently following for pancytopenia and anemia. Labs and imaging reviewed. Hemoglobin is improving. Blood count is improving. No evidence of any active bleeding. RECOMMENDATIONS: Continue current care. Will monitor the patient closely. Job#: [id number] RADHA
[2018-07-09] MEDS ORDERED: NIFEDIPINE ER30 M1 PO (09:23)
[2018-07-09] MEDS ORDERED: IMODIUM2 MG PO (09:23)
[2018-07-09] MEDS ORDERED: XIFAXAN550 MG PO (09:23)
[2018-07-09] MEDS ORDERED: MUCINEX DM ER1 EACH PO (09:23)
[2018-07-09] MEDS ORDERED: Calcium Carbonate PO (09:23)
[2018-07-09] MEDS ORDERED: MAGNESIUM OXID400 MG PO (09:23)
[2018-07-09] MEDS ORDERED: TYLENOL # 31 EA PO (09:23)
[2018-07-09] MEDS ORDERED: ZOFRAN ODT4 MG PO (09:23)
[2018-07-09] MEDS: IRON SUCROSE 100 MG in SODIUM CHLORIDE 0.9% 100 ML 100 ML IV SCH (09:37)
[2018-07-09] MEDS: MAGNESIUM OXIDE 400 MG TAB PO SCH ×2 (09:38→17:00)
[2018-07-09] MEDS: OYST-CAL-D 500MG TABLET PO SCH ×2 (09:38→17:00)
[2018-07-09] MEDS: GUAIFENESIN 600MG/DEXTROMETHORPHAN 30MG TABSR PO SCH ×2 (09:38→17:00)
[2018-07-09] MEDS: NYSTATIN 100,000 UNITS/GM CRM 30GM TUBE TOP SCH ×2 (09:39→17:00)
[2018-07-09] MEDS: NIFEDIPINE CR 30 MG TAB PO SCH (09:39)
[2018-07-09] MEDS: NYSTATIN 15 GM POWDER UD BTL TOP SCH ×2 (09:39→17:00)
[2018-07-09] MEDS: RIFAXIMIN 550 MG TABLET PO SCH ×2 (09:39→20:39)
[2018-07-09] MEDS: NICOTINE 7 MG PATCH TOP SCH (09:39)
[2018-07-09] MEDS: ONDANSETRON HCL INJ 2 MG/ML VIAL IV PRN (10:45)
[2018-07-09] MEDS: MORPHINE SULFATE 2 MG/ML SYR IV PRN ×2 (10:45→22:48)
[2018-07-09] MEDS: FUROSEMIDE 40 MG TAB PO SCH (10:45)
[2018-07-09] MEDS: PROMETHAZINE 12.5MG/ NACL 0.9% 12.5 MG/50 ML BAG IV PRN (17:00)
[2018-07-09] MEDS ORDERED: SPIRONOLACTONE 25 MG TAB PO SCH (18:00)
--- NOTE | 2018-07-09 18:59 | Consultation ---
DATE OF CONSULTATION: July 09, 2018 PULMONARY CONSULTATION Patient of Dr. Allan and Dr. Yung. A charming but unfortunate 58-year-old woman last seen approximately 5 years ago with history of hepatitis C with portal hypertension, varices, cirrhosis. She has had cervical laminectomy in the past, appendectomy. She has had incarcerated bowel in the past, sepsis, history of smoking. FAMILY HISTORY: Positive for ALS and breast cancer. 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 She was born in [place]. She drank socially in her youth. She claims she has hepatitis C related to a ____ transfusion. On this occasion, she has an incarcerated umbilical hernia with bowel obstruction and underwent resection of the small bowel as well as repair of the incisional hernia. She has a history of failed attempts of TIPS before. She was told apparently by interventional radiologist at [facility] that she was not a candidate. PHYSICAL EXAMINATION GENERAL: She is a chronically ill white female, jaundiced. HEAD: Temporal wasting. NECK: Trachea midline. LUNGS: Absent breath sounds at right base. HEART: Regular rhythm. ABDOMEN: Moderate ascites. EXTREMITIES: Wasted with trace edema. She does report having vomited 2 days ago and aspirated. Urine cultures grew resistant E. coli. Blood cultures Strep viridans, Staph aureus and Strep alpha hemolyticus on the . Repeat cultures on the were negative. Creatinine is normal. Platelet count is quite low at 43,000. There is a shift to the left with immatures forms. Bilirubin is 3.8. Anemia of chronic disease. Ammonia level was borderline at 122. 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 Options would include trial of diuretics including high-dose Aldactone or [place] shunt. She is also being considered for liver transplant, according to the patient. Plan is for thoracentesis in the a.m. Will check chemistries. If confusion recurs rapidly, TIPS might be considered or outpatient weekly thoracentesis is also consideration. Thank you for this kind referral. Job#: [id number]
[2018-07-09] MEDS: SPIRONOLACTONE 25 MG TAB PO SCH (21:00)
[2018-07-09] MEDS ORDERED: SODIUM CHLORIDE 0.9% 250ML 250 ML ONE (22:51)
[2018-07-10] VITALS: BP 103/51
[2018-07-10] MEDS: MEROPENEM 500 MG VIAL IV SCH ×3 (01:50→12:33)
[2018-07-10] MEDS: PANTOPRAZOL 40MG/SOD CHL 0.9% 50 ML IV SCH ×3 (01:50→11:00)
[2018-07-10] MEDS: HYDROCODONE/APAP 5MG-325MG TAB PO PRN (03:19)
[2018-07-10 03:21] LABS: BASOPHILS % 0.2 % (0.0-1.0); EOSINOPHILS # (AUTO) 0.2 (0.0-0.4); EOSINOPHILS % 3.2 % (0.0-6.0); HEMATOCRIT 29.6 % (34.2-44.1); HEMOGLOBIN 9.2 g/dL (12.0-16.0); LYMPHOCYTES # (AUTO) 0.5 (1.0-3.2); LYMPHOCYTES % 9.7 % (18.0-39.1); MEAN CORPUSCULAR HEMOGLOBIN 24.3 pg (28-32); MEAN CORPUSCULAR HGB CONC 31.1 g/dL (31-35); MEAN CORPUSCULAR VOLUME 78.3 fL (81-99); MONOCYTES # (AUTO) 0.5 (0.2-0.8); MONOCYTES % 11.1 % (4.4-11.3); NEUTROPHILS # (AUTO) 3.6 (2.1-6.9); NEUTROPHILS % 75.2 % (38.7-80.0); PLATELET COUNT 56 x10e3/uL (140-360); RED BLOOD COUNT 3.78 x10e6/uL (3.6-5.1); RED CELL DISTRIBUTION WIDTH 27.9 % (11.7-14.4)
[2018-07-10 03:39] LABS: INR 1.53; PROTHROMBIN TIME 19.7 seconds (11.9-14.5)
[2018-07-10 03:41] LABS: ALANINE AMINOTRANSFERASE 8 IU/L (0-55); ALBUMIN 2.5 g/dL (3.5-5.0); ALBUMIN/GLOBULIN RATIO 0.9 (0.8-2.0); ALKALINE PHOSPHATASE 68 IU/L (40-150); ANION GAP 9.4 mmol/L (8-16); BLOOD UREA NITROGEN 7 mg/dL (7-26); BUN/CREATININE RATIO 12 (6-25); CARBON DIOXIDE 29 mmol/L (22-29); CHLORIDE 104 mmol/L (98-107); EST GLOMERULAR FILTRATION RATE > 60 ML/MIN (60-); GLUCOSE 116 mg/dL (74-118); POTASSIUM 3.4 mmol/L (3.5-5.1); SODIUM 139 mmol/L (136-145)
[2018-07-10 04:00] VITALS: BP 100/51
[2018-07-10] MEDS: IRON SUCROSE 100 MG in SODIUM CHLORIDE 0.9% 100 ML 100 ML IV SCH (08:27)
--- NOTE | 2018-07-10 08:37 | Progress Note ---
DATE: July 10, 2018 Patient was seen and examined today. Patient appeared comfortable. Clinically doing better. She is scheduled for thoracentesis. She received platelets. PHYSICAL EXAMINATION GENERAL: Alert, awake and communicative. HEENT: Normocephalic and atraumatic. Sclerae pink. Conjunctivae clear. NECK: Supple. CHEST: Decreased breath sounds at the bases. CARDIOVASCULAR: Regular rate and rhythm. ABDOMEN: Soft. EXTREMITIES: No edema. LABS AND IMAGING: Reviewed. ASSESSMENT AND PLAN: The patient has a history of multiple medical conditions. I am currently following for: 1. Pancytopenia. 2. Anemia. Current hemoglobin is 9. White cell count is stable. Platelet count was low, and received platelet treatment for thoracentesis. Procedure scheduled this morning. RECOMMENDATIONS: Continue current care. Will monitor the patient closely. Job#: [id number] RADHA
[2018-07-10] MEDS ORDERED: KEFLEX500 MG PO (08:45)
[2018-07-10] MEDS ORDERED: IRON SUCROSE 100 MG in SODIUM CHLORIDE 0.9% 100 ML 100 ML IV SCH (09:00)
[2018-07-10] MEDS ORDERED: SPIRONOLACTONE 25 MG TAB PO SCH (09:00)
[2018-07-10] MEDS ORDERED: POTASSIUM CHLORIDE 20 MEQ TAB CR PO SCH (09:00)
[2018-07-10 09:14] VITALS: BP 119/63
[2018-07-10] MEDS: MORPHINE SULFATE 2 MG/ML SYR IV PRN (11:09)
[2018-07-10 12:31] VITALS: BP 122/61
[2018-07-10] MEDS: NYSTATIN 15 GM POWDER UD BTL TOP SCH (12:33)
[2018-07-10] MEDS: NIFEDIPINE CR 30 MG TAB PO SCH (12:33)
[2018-07-10] MEDS: SPIRONOLACTONE 25 MG TAB PO SCH (12:33)
[2018-07-10] MEDS: MAGNESIUM OXIDE 400 MG TAB PO SCH (12:33)
[2018-07-10] MEDS: FUROSEMIDE 40 MG TAB PO SCH (12:33)
[2018-07-10] MEDS: NYSTATIN 100,000 UNITS/GM CRM 30GM TUBE TOP SCH (12:33)
[2018-07-10] MEDS: OYST-CAL-D 500MG TABLET PO SCH (12:33)
[2018-07-10] MEDS: RIFAXIMIN 550 MG TABLET PO SCH (12:33)
[2018-07-10] MEDS: NICOTINE 7 MG PATCH TOP SCH (12:33)
[2018-07-10] MEDS: GUAIFENESIN 600MG/DEXTROMETHORPHAN 30MG TABSR PO SCH (12:33)
--- NOTE | 2018-07-10 13:09 | Diagnostic Imaging Report ---
Procedure: Ultrasound-guided right thoracentesis expanding machine operator: Dr. Jed Dubose Pre-operative diagnosis: Right pleural effusion Post-operative diagnosis: Right pleural effusion Local sedation: 10 cc of 1% subcutaneous lidocaine Estimated blood loss: Minimal Implants: None TECHNIQUE/FINDINGS: Informed consent was obtained from the patient and documented in the medical record. The patient was positioned in the upright position. The right back was prepped and draped in standard sterile fashion. 1% lidocaine was infiltrated into the skin and subcutaneous tissues for local anesthesia. Preliminary ultrasound demonstrated a large right pleural effusion. Then under sonographic guidance, a 5 Fr catheter was advanced into the right pleural space. The catheter was advanced off the needle and connected to vacuum bottle with subsequent evacuation of 1950 cc of serous fluid. Post procedural ultrasound demonstrated no significant residual effusion. The catheter was removed and a sterile, occlusive dressing was applied. The patient tolerated the procedure well. IMPRESSION: Ultrasound-guided right thoracentesis with evacuation of 1950 cc of serous fluid. Signed by: Dr. Jed Dubose MD on 07/10/2018 1:05 PM
--- NOTE | 2018-07-10 13:44 | Diagnostic Imaging Report ---
EXAMINATION: CHEST XRAY POST PROCEDURE INDICATION: Status post thoracentesis. COMPARISON: Chest radiograph 07/08/18. FINDINGS: TUBES and LINES: Right sided PICC terminates at the expected position of the lower SVC. LUNGS: Interval re-aeration of the right lung. No evidence of lobar consolidation or pulmonary edema. Mild patchy right basilar opacity, likely atelectasis. PLEURA: Interval near resolution of previously moderate to large pleural effusion. No evidence of pneumothorax. HEART AND MEDIASTINUM: The cardiomediastinal silhouette is unremarkable. BONES AND SOFT TISSUES: No acute osseous abnormality. Bilateral rib fracture deformities. UPPER ABDOMEN: No free air under the diaphragm. IMPRESSION: Status post right thoracentesis with near resolution of moderate to large right pleural effusion. No evidence of pneumothorax. Signed by: Dr. Jed Dubose MD on 07/10/2018 1:40 PM
--- NOTE | 2018-07-10 17:55 | Discharge Summary ---
ADMISSION DIAGNOSES 1. Sepsis due to ischemic bowel. 2. Acute blood loss anemia. 3. Coagulopathy due to cirrhosis. 4. Incarcerated umbilical hernia with small bowel obstruction and possible ischemic bowel. DISCHARGE DIAGNOSES 1. Sepsis due to ischemic bowel. 2. Acute blood loss anemia. 3. Coagulopathy due to cirrhosis. 4. Incarcerated umbilical hernia with small bowel obstruction and possible ischemic bowel. 5. Gastrointestinal bleed, ruled out Clostridium difficile. 6. Hypokalemia. 7. Hypocalcemia. 8. Elevated B-natriuretic peptide. 9. Thrombocytopenia. HISTORY: The patient has a history of chronic hepatitis C and cirrhosis. HOSPITAL COURSE: A 58-year-old female presents with an umbilical hernia that is very tender and purple and appears to be incarcerated. On admission, the patient had a chest x-ray which was negative. The patient had a CT of the abdomen that showed findings compatible with proximal small bowel obstruction secondary to an umbilical hernia containing a closed small bowel loop obstruction. No evidence of pneumatosis in the bowel wall, cirrhotic liver with severe splenomegaly and moderate amount of free abdominal and pelvic fluid, small right pleural effusion, anemia is suspected. Surgery was consulted. The patient underwent an umbilical hernia repair, bowel resection on 06/29/18. On 06/29/18, the patient's hemoglobin dropped to 6.5. The patient was given 2 packed red blood cells on the and one packed red blood cells on the night of the . Her PT was also found to be 24 on the and 19.3 on admission, so the patient was given two units of fresh frozen plasma, one on the and one on the and a unit of platelets on the as well. After the surgery, the patient is recovering well. On the , the patient had a thoracentesis on the right with evacuation of 1200 mL of serous fluid. Due to abdominal pain, the patient had a KUB which showed possible ileus or small bowel obstruction. The patient was kept n.p.o. and then diet advanced as the ileus resolved. A repeat chest x-ray on the showed reaccumulation of the right pleural effusion. Another thoracentesis was ordered, but due to the patient's low platelets, IR refused to do it until she got another unit of platelets. So, on the the patient received another unit of platelets and then underwent a second thoracentesis on the right with 1950 mL pulled out. The pleural fluid was negative x5 days. Blood culture was negative x5 days. The patient was found to have ESBL of the urine on admission, which was treated with Merrem. The patient found on admission to also have Streptococcus viridans, Staph aureus and Strep species alpha-hemolytic in her blood. Per ID, the patient was receiving antibiotics. Repeat cultures were negative. An echo was done that showed no valvular abnormalities. The patient is feeling better, tolerating diet, having bowel movements. Throughout hospitalization the patient received 3 units of packed red blood cells, 4 units fresh frozen plasma, 2 units of platelets. Chest x-ray after the thoracentesis showed no pneumothorax. The patient is feeling much better and is ready to discharge home. Per infectious disease, the patient will discharge home with 7 more days of Keflex 500 mg q.i.d. She will also be sent home with Tylenol No. 3, calcium carbonate, Mucinex, Loperamide, magnesium ox, nifedipine and Zofran. The patient will follow up with primary care physician in one to two weeks and surgery as discussed. The patient understands discharge instructions and agrees to plan. Dictated by: Elizabeth Hazel NP DELLA FIELD MD Job#: [id number]
== END 2018-07-10 16:42 | disposition home health service (06) | DRG 853 ==
LOC: ER 21:07 → ACU 22:59 → ICU 06-29 02:28 → MED/SURG2 06-30 20:21
PROVIDERS: ADMIT Internal Medicine; ATTEND Internal Medicine
PROC: 30233K1 Transfusion of Nonautologous Frozen Plasma into Peripheral Vein, Percutaneous Approach (ICD-10-PCS; 2018-06-28)
PROC: 0DB80ZZ Excision of Small Intestine, Open Approach (ICD-10-PCS; 2018-06-29)
PROC: 30233N1 Transfusion of Nonautologous Red Blood Cells into Peripheral Vein, Percutaneous Approach (ICD-10-PCS; 2018-06-29)
PROC: 0WQF0ZZ Repair Abdominal Wall, Open Approach (ICD-10-PCS; principal; 2018-06-29 01:00)
PROC: 30233R1 Transfusion of Nonautologous Platelets into Peripheral Vein, Percutaneous Approach (ICD-10-PCS; 2018-06-30)
PROC: 30233M1 Transfusion of Nonautologous Plasma Cryoprecipitate into Peripheral Vein, Percutaneous Approach (ICD-10-PCS; 2018-06-30)
PROC: 02HV33Z Insertion of Infusion Device into Superior Vena Cava, Percutaneous Approach (ICD-10-PCS; 2018-07-01)
PROC: 0W993ZX Drainage of Right Pleural Cavity, Percutaneous Approach, Diagnostic (ICD-10-PCS; 2018-07-03)
PROC: 0W9G3ZX Drainage of Peritoneal Cavity, Percutaneous Approach, Diagnostic (ICD-10-PCS; 2018-07-03)
PROC: 0W993ZX Drainage of Right Pleural Cavity, Percutaneous Approach, Diagnostic (ICD-10-PCS; 2018-07-10)
DX: A41.89 Other specified sepsis (principal); K42.1 Umbilical hernia with gangrene; D68.4 Acquired coagulation factor deficiency; K55.8 Other vascular disorders of intestine; K76.6 Portal hypertension; I85.10 Secondary esophageal varices without bleeding; N39.0 Urinary tract infection, site not specified; D68.9 Coagulation defect, unspecified; D61.818 Other pancytopenia; K92.2 Gastrointestinal hemorrhage, unspecified; R18.8 Other ascites; K56.7 Ileus, unspecified; J90 Pleural effusion, not elsewhere classified; E44.0 Moderate protein-calorie malnutrition; Z68.1 Body mass index [BMI] 19.9 or less, adult; D50.0 Iron deficiency anemia secondary to blood loss (chronic); B18.2 Chronic viral hepatitis C; F17.210 Nicotine dependence, cigarettes, uncomplicated; D63.8 Anemia in other chronic diseases classified elsewhere; Z88.2 Allergy status to sulfonamides; Z91.041 Radiographic dye allergy status; R16.1 Splenomegaly, not elsewhere classified; E83.51 Hypocalcemia; D69.59 Other secondary thrombocytopenia; B96.20 Unspecified Escherichia coli [E. coli] as the cause of diseases classified elsewhere; Z16.12 Extended spectrum beta lactamase (ESBL) resistance; R09.81 Nasal congestion; A41.01 Sepsis due to Methicillin susceptible Staphylococcus aureus; K74.69 Other cirrhosis of liver
CPT/HCPCS: 32555; 36415; 36569; 49083; 51700; 71045; 74018; 74176; 74470; 76705; 80048; 80053; 80076; 80202; 81001; 82105; 82140; 82270; 82550; 82553; 82607; 82728; 82746; 82945; 83540; 83605; 83690; 83735; 83880; 84157; 84466; 84484; 85014; 85018; 85025; 85045; 85384; 85610; 85730; 86850; 86900; 86920; 87040; 87070; 87071; 87086; 87186; 87205; 87493; 88112; 88305; 88307; 89051; 93005; 93306; 94640; 97139; 99285; J0610; J0692; J1200; J1756; J1940; J2001; J2185; J2250; J2270; J2370; J2405; J2550; J2765; J3370; J3430; J3475; J3480; J7030; J7040; J7050; P9012; P9016; P9017; P9034

== ENCOUNTER 2018-11-22 22:59 | Emergency (ER) | payer BC, OTHER ==
[~2018-11-22] VITALS: Ht 162.6 cm; Wt 46.3 kg
[~2018-11-22 22:59] MED LIST changes: +Calcium Carbonate PO; +IMODIUM2 MG PO; +KEFLEX500 MG PO; -LIDOCAINE HCL 2% LOCAL INJ 5 ML SDV VIAL INJ ONE; +MAGNESIUM OXID400 MG PO; +MUCINEX DM ER1 EACH PO; +NIFEDIPINE ER30 M1 PO; -PHENYLEPHRINE HCL 1% 10 MG/ML VIAL ONE; -PROPOFOL IV EMULSION 10 MG/ML 20 ML VIAL ONE; -ROCURONIUM BROMIDE 10 MG/ML 5ML VIAL ONE; -SEVOFLURANE INHAL SOLN 250 ML PEN BTL ONE; -SUCCINYLCHOLINE 200 MG/10 ML SYR ONE; +XIFAXAN550 MG PO; +ZOFRAN ODT4 MG PO
--- OUTSIDE RECORDS SUMMARY | 2018-11-22 23:04 | XMS REPORT | Clinical Summary ---
Author Author [facility] Organization [facility] Address Unknown Phone Unavailable Care Team Providers Care Miniature Set Builder Name Role Phone Darwin Kapadia MD PCP Allergies Comments Active Allergy Reactions Severity Noted Date Blood Collect 07/07/2017 Tcn-Zctrf-Rojqdr Erythromycin 07/06/2017 Iodine High 07/06/2017 Medications End Date Status Medication Sig Dispensed Refills Start Date Active promethazine (PHENERGAN) Take 25 mg by 0 25 MG tablet mouth every 6 (six) hours as needed for nausea or vomiting. Active wikxctpnif-mslatkz-fzrmqe Take 1 0 ne (FIORINAL) 50-325-40 capsule by mg per capsule mouth every 6 (six) hours as needed for migraine. Active GUAIFENESIN/DEXTROMETHORP Take 1 tablet 0 SANCHEZ (SAFE TUSSIN DM ORAL) by mouth 4 (four) times a day as needed. Active diphenhydrAMINE Take 25 mg by 0 (BENADRYL) 25 mg tablet mouth every 8 (eight) hours as needed for itching or sleep. Active Problems Problem Noted Date Gastrointestinal hemorrhage with hematemesis 07/06/2017 Immunizations Name Dates Previously Given Next Due Pneumococcal Conjugate 07/07/2017 [facility] Social History Date Tobacco Use Types Packs/Day Years Used Current Some Day Smoker 1 Alcohol Use Drinks/Week oz/Week Comments No Sex Assigned at Date Recorded Not on file Industry Job Start Date Occupation Not on file Not on file Not on file Travel End Travel History Travel Start No recent travel history available. Last Filed Vital Signs Not on file Plan of Treatment Health Maintenance Due Date Last Done Comments CERVICAL CANCER SCREENING 01/13/1981 BREAST CANCER SCREENING 01/13/2010 COLON CANCER SCREENING 01/13/2010 SHINGLES VACCINES (#1) 01/13/2010 INFLUENZA VACCINE 04/08/2018 Procedures Comments Procedure Name Priority Date/Time Associated Diagnosis TRANSFUSE CRYOPRECIPITATE STAT 05/13/2018 5:43 PM CDT [...] BLOOD CELLS STAT 05/13/2018 5:43 PM CDT after 11/21/2017 Results * Transfuse cryoprecipitate (05/13/2018 5:43 PM CDT) Only the most recent of 6 results within the time period is included. * Transfuse platelets (05/13/2018 5:43 PM CDT) * Transfuse RBC (05/13/2018 5:43 PM CDT) Only the most recent of 5 results within the time period is included. after 11/21/2017 Insurance Payer Benefit Subscriber ID Type Phone Address Plan / Group CIG[employer] CIGNA OPEN xxxxxxxxx HMO ACCESS/NET WORK Advance Directives Patient has advance care planning documents on file. For more information, letitia herrera contact: Romario Casey [address] [place] [address]
--- OUTSIDE RECORDS SUMMARY | 2018-11-22 23:04 | XMS REPORT | Clinical Summary ---
Author Author [facility] Address Unknown Phone Unavailable Care Team Providers Care Human Resources Operations Coordinator Name Role Phone Darwin Kapadia PCP Allergies Comments Active Allergy Reactions Severity Noted Date Propoxyphene Rash Low 08/26/2014 Erythromycin Rash Low 08/26/2014 Sumatriptan Succinate Rash Low 08/26/2014 Iodinated Contrast- Oral Rash Low 08/26/2014 And Iv Dye Medications Not on file Active Problems Not on file Social History Date Tobacco Use Types Packs/Day Years Used Current Every Day Smoker Sex Assigned at Date Recorded Not on file Industry Job Start Date Occupation Not on file Not on file Not on file Travel End Travel History Travel Start No recent travel history available. Last Filed Vital Signs Not on file Plan of Treatment Not on file Results Not on fileafter 11/21/2017 Insurance Payer Benefit Subscriber ID Type Phone Address Plan / Group [facility] xxxxxxxxx PPO SYSTEM PPO/POS
== END 2018-11-22 23:30 | disposition home or self-care (01) ==
LOC: ER 22:59
DX: Z48.02 Encounter for removal of sutures (principal)
CPT/HCPCS: 99282

== ENCOUNTER 2019-05-04 02:05 | Emergency (ER) | payer OTHER ==
[~2019-05-04] VITALS: Ht 162.6 cm; Wt 46.3 kg
[2019-05-04 03:15] LABS: BASOPHILS % 0.4 % (0.0-1.0); EOSINOPHILS # (AUTO) 0.1 (0.0-0.4); HEMATOCRIT 29.4 % (34.2-44.1); HEMOGLOBIN 8.5 g/dL (12.0-16.0); LYMPHOCYTES # (AUTO) 0.6 (1.0-3.2); LYMPHOCYTES % 11.6 % (18.0-39.1); MEAN CORPUSCULAR HEMOGLOBIN 20.2 pg (28-32); MEAN CORPUSCULAR HGB CONC 28.9 g/dL (31-35); MEAN CORPUSCULAR VOLUME 69.8 fL (81-99); MONOCYTES # (AUTO) 0.4 (0.2-0.8); MONOCYTES % 8.5 % (4.4-11.3); NEUTROPHILS % 78.1 % (38.7-80.0); PLATELET COUNT 78 x10e3/uL (140-360); RED BLOOD COUNT 4.21 x10e6/uL (3.6-5.1)
--- NOTE | 2019-05-04 03:17 | Diagnostic Imaging Report ---
Examination: Single AP view of the chest. COMPARISON: 07/10/2018 INDICATION: Confusion DISCUSSION: The lungs are well-inflated. No focal airspace consolidation, pleural effusion, or pneumothorax. Cardiomediastinal contour is within normal limits when accounting for portable technique and rightward patient rotation. No pulmonary edema. No acute osseous abnormality. Bilateral healed rib fracture deformities are unchanged. IMPRESSION: No acute cardiopulmonary abnormality. Signed by: Dr. Darwin Benaivdes M.D. on 05/04/2019 3:13 AM
[2019-05-04 03:19] LABS: INR 1.34; PROTHROMBIN TIME 17.2 seconds (11.9-14.5)
[2019-05-04 03:20] LABS: PARTIAL THROMBOPLASTIN TIME 31.6 seconds (23.8-35.5)
[2019-05-04 03:59] LABS: ALANINE AMINOTRANSFERASE 8 IU/L (0-55); ALBUMIN 3.7 g/dL (3.5-5.0); ALBUMIN/GLOBULIN RATIO 1.2 (0.8-2.0); ALKALINE PHOSPHATASE 62 IU/L (40-150); ANION GAP 16.9 mmol/L (8-16); BLOOD UREA NITROGEN 25 mg/dL (7-26); BUN/CREATININE RATIO 31 (6-25); CALCIUM 9.2 mg/dL (8.4-10.2); CARBON DIOXIDE 23 mmol/L (22-29); CHLORIDE 100 mmol/L (98-107); CREATINE KINASE 37 IU/L (29-168); EST GLOMERULAR FILTRATION RATE > 60 ML/MIN (60-); GLUCOSE 86 mg/dL (74-118); SODIUM 137 mmol/L (136-145)
[2019-05-04 04:01] LABS: POTASSIUM 2.9 mmol/L (3.5-5.1)
[2019-05-04] MEDS ORDERED: POTASSIUM CHLORIDE 20 MEQ TAB CR PO STA (04:11)
[2019-05-04 04:23] LABS: BILIRUBIN,URINE NEGATIVE (NEGATIVE); CLARITY,URINE SL CLOUDY (CLEAR); COLOR,URINE YELLOW (YELLOW); KETONES,URINE NEGATIVE (NEGATIVE); LEUKOCYTE ESTERASE ,URINE NEGATIVE (NEGATIVE); NITRITE,URINE POSITIVE (NEGATIVE); PROTEIN,URINE DIPSTICK NEGATIVE (NEGATIVE); URINE UROBILINOGEN 0.2 mg/dL (0.2 - 1)
[2019-05-04 04:51] LABS: BACTERIA,URINE MANY /HPF; EPITHELIAL CELLS,URINE RARE /LPF; RBC,URINE 0-5 /HPF (0-5)
[2019-05-04] MEDS ORDERED: CEFTRIAXONE SOD 1 GM/NS 50 ML 50 ML IV ONE (05:00)
[2019-05-04] MEDS ORDERED: CEFTRIAXONE SOD 1 GM VIAL IM ONE (05:15)
[2019-05-04 05:24] VITALS: BP 127/61
== END 2019-05-04 05:51 | disposition home or self-care (01) ==
LOC: ER 02:05
DX: R53.1 Weakness (principal); E87.6 Hypokalemia; K52.9 Noninfective gastroenteritis and colitis, unspecified; N30.90 Cystitis, unspecified without hematuria; B19.20 Unspecified viral hepatitis C without hepatic coma; Z87.11 Personal history of peptic ulcer disease
CPT/HCPCS: 36415; 71045; 80053; 81001; 82140; 82550; 82553; 84484; 85025; 85610; 85730; 93005; 99284; J0696

== ENCOUNTER 2021-11-07 11:10 | Inpatient (IN) | payer SELFPAY ==
[~2021-11-07] VITALS: Ht 162.6 cm; Wt 49.0 kg
[2021-11-07] MEDS ORDERED: ONDANSETRON HCL INJ 2MG/ML 2ML 2 MG/ML VIAL IV STA ×2 (11:19→17:08)
[2021-11-07] MEDS ORDERED: OCTREOTIDE ACETATE 0.05 MG/ML AMP IV STA (11:37)
[2021-11-07 11:47] LABS: BASOPHILS # (AUTO) 0.1 (0.0-0.1); BASOPHILS % 0.7 % (0.0-1.0); EOSINOPHILS # (AUTO) 0.1 (0.0-0.4); EOSINOPHILS % 1.1 % (0.0-6.0); HEMATOCRIT 27.3 % (34.2-44.1); HEMOGLOBIN 8.6 g/dL (12.0-16.0); LYMPHOCYTES # (AUTO) 1.1 (1.0-3.2); LYMPHOCYTES % 9.5 % (18.0-39.1); MEAN CORPUSCULAR HEMOGLOBIN 26.9 pg (28-32); MEAN CORPUSCULAR HGB CONC 31.5 g/dL (31-35); MEAN CORPUSCULAR VOLUME 85.3 fL (81-99); MONOCYTES # (AUTO) 1.1 (0.2-0.8); MONOCYTES % 9.7 % (4.4-11.3); NEUTROPHILS # (AUTO) 8.7 (2.1-6.9); NEUTROPHILS % 78.5 % (38.7-80.0); PLATELET COUNT 121 x10e3/uL (140-360); RED CELL DISTRIBUTION WIDTH 20.9 % (11.7-14.4)
[2021-11-07 12:11] LABS: ALBUMIN 2.7 g/dL (3.5-5.0); ALBUMIN/GLOBULIN RATIO 0.8 (0.8-2.0); ANION GAP 12.9 mmol/L (8-16); CREATININE, SERUM 0.91 mg/dL (0.57-1.11); MAGNESIUM 1.8 MG/DL (1.3-2.1); POTASSIUM 3.9 mmol/L (3.5-5.1)
[2021-11-07 12:14] LABS: INR 1.7; PROTHROMBIN TIME 21.3 seconds (11.9-14.5)
[2021-11-07 12:15] LABS: PARTIAL THROMBOPLASTIN TIME 36.1 seconds (23.8-35.5)
[2021-11-07 12:21] LABS: CREATINE KINASE MB 2.3 ng/mL (0-5.0)
[2021-11-07] MEDS: OCTREOTIDE ACETATE 500 MCG in SODIUM CHLORIDE 0.9% 250ML 250 ML IV SCH ×2 (13:15→22:00)
[2021-11-07] MEDS ORDERED: FUROSEMIDE INJ 10 MG/ML 2 ML VIAL IV PRN (14:15)
[2021-11-07] MEDS ORDERED: SODIUM CHLORIDE 0.9% 250ML 250 ML IV ONE (14:15)
[2021-11-07 15:07] LABS: CLARITY,URINE SL CLOUDY (CLEAR); COLOR,URINE YELLOW (YELLOW); KETONES,URINE TRACE (NEGATIVE); LEUKOCYTE ESTERASE ,URINE NEGATIVE (NEGATIVE); NITRITE,URINE POSITIVE (NEGATIVE); PROTEIN,URINE DIPSTICK 1+ (NEGATIVE); URINE UROBILINOGEN 0.2 mg/dL (0.2 - 1)
[2021-11-07 15:18] LABS: AMORPHOUS SEDIMENT,URINE MODERATE (FEW); BACTERIA,URINE MODERATE /HPF; WBC,URINE (MAN) 0-5 /HPF (0-5)
[2021-11-07] MEDS ORDERED: Morphine 2mg Syringe 2 MG/ML SYR IV STA (17:08)
[2021-11-07 17:28] LABS: BASOPHILS # (AUTO) 0.1 (0.0-0.1); BASOPHILS % 0.7 % (0.0-1.0); EOSINOPHILS % 0.6 % (0.0-6.0); HEMATOCRIT 26.3 % (34.2-44.1); HEMOGLOBIN 8.2 g/dL (12.0-16.0); LYMPHOCYTES # (AUTO) 1.2 (1.0-3.2); LYMPHOCYTES % 16.1 % (18.0-39.1); MEAN CORPUSCULAR HEMOGLOBIN 26.7 pg (28-32); MEAN CORPUSCULAR HGB CONC 31.2 g/dL (31-35); MEAN CORPUSCULAR VOLUME 85.7 fL (81-99); MONOCYTES # (AUTO) 0.5 (0.2-0.8); MONOCYTES % 7.3 % (4.4-11.3); NEUTROPHILS # (AUTO) 5.4 (2.1-6.9); PLATELET COUNT 84 x10e3/uL (140-360); RED BLOOD COUNT 3.07 x10e6/uL (3.6-5.1)
[2021-11-07] MEDS ORDERED: DIPHENHYDRAMINE HCL INJ 50 MG/ML VIAL IV ONE (17:45)
[2021-11-07] MEDS ORDERED: ACETAMINOPHEN 325 MG TAB PO ONE (17:45)
[2021-11-07] MEDS ORDERED: PHYTONADIONE 10 MG/ML AMP SC ONE (18:00)
[2021-11-07] MEDS ORDERED: SODIUM CHLORIDE 0.9% 1000ML 1,000 ML IV ONE (18:00)
[2021-11-07 19:40] LABS: PLATELET ESTIMATE SLIGHTLY DECREASED; PLATELET MORPHOLOGY COMMENT NORMAL; RBC MORPHOLOGY COMMENT NORMAL
[2021-11-07] MEDS ORDERED: DIPHENHYDRAMINE HCL INJ 50 MG/ML VIAL ONE (21:00)
[2021-11-07] MEDS ORDERED: ACETAMINOPHEN 325 MG TAB ONE (21:01)
[2021-11-07] MEDS ORDERED: SODIUM CHLORIDE 0.9% 250ML 250 ML ONE (21:28)
[2021-11-07] MEDS: Morphine 2mg Syringe 2 MG/ML SYR IV PRN (22:29)
[2021-11-07] MEDS ORDERED: PHYTONADIONE 10 MG/ML AMP IV ONE ×2 (23:00→23:15)
[2021-11-08] VITALS (9 sets, daily range): BP systolic 104–123; BP diastolic 44–97
[2021-11-08] MEDS ORDERED: PHYTONADIONE 10MG/ML 2 ML ONE (02:37)
[2021-11-08] MEDS ORDERED: SODIUM CHLORIDE 0.9% 100 ML ONE ×2 (02:38→23:39)
[2021-11-08] MEDS: Morphine 2mg Syringe 2 MG/ML SYR IV PRN ×3 (03:50→18:14)
[2021-11-08] MEDS: Pantoprazole IV 40 MG in SODIUM CHLORIDE 0.9% 50ML 50 ML IV SCH ×4 (05:42→18:25)
[2021-11-08 06:38] LABS: BASOPHILS # (AUTO) 0.1 (0.0-0.1); BASOPHILS % 1.2 % (0.0-1.0); EOSINOPHILS # (AUTO) 0.1 (0.0-0.4); EOSINOPHILS % 1.7 % (0.0-6.0); HEMATOCRIT 23.2 % (34.2-44.1); HEMOGLOBIN 7.4 g/dL (12.0-16.0); LYMPHOCYTES # (AUTO) 0.8 (1.0-3.2); LYMPHOCYTES % 20.5 % (18.0-39.1); MEAN CORPUSCULAR HEMOGLOBIN 27.5 pg (28-32); MEAN CORPUSCULAR HGB CONC 31.9 g/dL (31-35); MEAN CORPUSCULAR VOLUME 86.2 fL (81-99); MONOCYTES # (AUTO) 0.6 (0.2-0.8); MONOCYTES % 15.6 % (4.4-11.3); NEUTROPHILS # (AUTO) 2.5 (2.1-6.9); NEUTROPHILS % 60.8 % (38.7-80.0); PLATELET COUNT 63 x10e3/uL (140-360); RED BLOOD COUNT 2.69 x10e6/uL (3.6-5.1); RED CELL DISTRIBUTION WIDTH 19.7 % (11.7-14.4)
[2021-11-08 06:49] LABS: INR 1.55; PROTHROMBIN TIME 19.9 seconds (11.9-14.5)
[2021-11-08 06:56] LABS: ALBUMIN 2.7 g/dL (3.5-5.0); ALBUMIN/GLOBULIN RATIO 0.9 (0.8-2.0); ANION GAP 10.2 mmol/L (8-16); CALCIUM 8.1 mg/dL (8.4-10.2); CREATININE, SERUM 0.99 mg/dL (0.57-1.11); POTASSIUM 4.2 mmol/L (3.5-5.1)
[2021-11-08] MEDS ORDERED: ONDANSETRON ODT4 MG PO (07:19)
[2021-11-08] MEDS ORDERED: SPIRONOLACTONE25 MG PO (07:21)
[2021-11-08] MEDS ORDERED: PROTONIX20 MG PO (07:23)
[2021-11-08] MEDS ORDERED: FUROSEMIDE40 MG PO (07:25)
[2021-11-08] MEDS ORDERED: CIPRO500 MG PO (07:26)
[2021-11-08] MEDS ORDERED: LACTULOSE20 GM/30 M PO ×2 (07:27→07:28)
[2021-11-08] MEDS ORDERED: ULTRAM50 MG PO (07:33)
[2021-11-08] MEDS ORDERED: SODIUM CHLORIDE 0.9% 50ML 0 ML ONE (08:48)
[2021-11-08] MEDS ORDERED: GADOBENATE DIMEGLUMINE 0 ML IV ONE (08:48)
[2021-11-08] MEDS: OCTREOTIDE ACETATE 500 MCG in SODIUM CHLORIDE 0.9% 250ML 250 ML IV SCH ×2 (08:57→18:25)
[2021-11-08] MEDS: CEFTRIAXONE 1 GM in SODIUM CHLORIDE 0.9% 50ML 50 ML IV SCH (09:16)
[2021-11-08] MEDS ORDERED: DIPHENHYDRAMINE HCL INJ 50 MG/ML VIAL IV ONE (11:15)
[2021-11-08] MEDS ORDERED: PHYTONADIONE 10 MG/ML AMP IV STA (12:00)
[2021-11-08 12:27] LABS: HEMOGLOBIN 6.8 g/dL (12.0-16.0)
[2021-11-08 12:28] LABS: HEMATOCRIT 21.4 % (34.2-44.1)
[2021-11-08] MEDS ORDERED: PHYTONADIONE 10MG/ML 20 MG in SODIUM CHLORIDE 0.9% 50ML 50 ML IV ONE (12:45)
[2021-11-08] MEDS ORDERED: SODIUM CHLORIDE 0.9% 250ML 250 ML IV ONE (13:00)
[2021-11-08] MEDS ORDERED: MIDAZOLAM HCL 2 MG/2 ML VIAL ONE (14:12)
[2021-11-08] MEDS ORDERED: FENTANYL CITRATE/PF 100MCG/2 ML INJ ONE (14:12)
[2021-11-08 18:56] LABS: HEMATOCRIT 25.6 % (34.2-44.1); HEMOGLOBIN 7.9 g/dL (12.0-16.0)
[2021-11-08] MEDS ORDERED: SODIUM CHLORIDE 0.9% 250ML 250 ML ONE (20:32)
[2021-11-08] MEDS ORDERED: PHYTONADIONE 10 MG/ML AMP IV ONE (23:00)
[2021-11-09] VITALS (11 sets, daily range): BP systolic 97–123; BP diastolic 52–69
[2021-11-09] MEDS: Morphine 2mg Syringe 2 MG/ML SYR IV PRN ×2 (00:16→22:10)
[2021-11-09 00:44] LABS: HEMATOCRIT 28.8 % (34.2-44.1)
[2021-11-09] MEDS: Pantoprazole IV 40 MG in SODIUM CHLORIDE 0.9% 50ML 50 ML IV SCH ×5 (01:15→20:24)
[2021-11-09] MEDS: OCTREOTIDE ACETATE 500 MCG in SODIUM CHLORIDE 0.9% 250ML 250 ML IV SCH ×2 (05:27→11:00)
[2021-11-09 06:01] LABS: BASOPHILS % 1.3 % (0.0-1.0); EOSINOPHILS # (AUTO) 0.1 (0.0-0.4); EOSINOPHILS % 3.8 % (0.0-6.0); HEMATOCRIT 28.8 % (34.2-44.1); HEMOGLOBIN 9.1 g/dL (12.0-16.0); LYMPHOCYTES # (AUTO) 0.5 (1.0-3.2); LYMPHOCYTES % 17.2 % (18.0-39.1); MEAN CORPUSCULAR HEMOGLOBIN 27.6 pg (28-32); MEAN CORPUSCULAR HGB CONC 31.6 g/dL (31-35); MEAN CORPUSCULAR VOLUME 87.3 fL (81-99); MONOCYTES # (AUTO) 0.4 (0.2-0.8); MONOCYTES % 13.7 % (4.4-11.3); NEUTROPHILS % 63.7 % (38.7-80.0); PLATELET COUNT 52 x10e3/uL (140-360); RED CELL DISTRIBUTION WIDTH 18.8 % (11.7-14.4)
[2021-11-09 06:22] LABS: ALBUMIN 2.6 g/dL (3.5-5.0); ALBUMIN/GLOBULIN RATIO 0.8 (0.8-2.0); ANION GAP 10.7 mmol/L (8-16); CALCIUM 8.1 mg/dL (8.4-10.2); CREATININE, SERUM 0.85 mg/dL (0.57-1.11); INR 1.45; MAGNESIUM 1.8 MG/DL (1.3-2.1); POTASSIUM 3.7 mmol/L (3.5-5.1); PROTHROMBIN TIME 18.8 seconds (11.9-14.5)
[2021-11-09] MEDS ORDERED: PHYTONADIONE 10 MG/ML AMP IV ONE (07:45)
[2021-11-09] MEDS ORDERED: PHYTONADIONE 10MG/ML 20 MG in SODIUM CHLORIDE 0.9% 50ML 50 ML IV ONE (08:00)
[2021-11-09] MEDS: CEFTRIAXONE 1 GM in SODIUM CHLORIDE 0.9% 50ML 50 ML IV SCH (08:35)
[2021-11-09 12:21] LABS: HEMATOCRIT 27.8 % (34.2-44.1); HEMOGLOBIN 8.8 g/dL (12.0-16.0)
[2021-11-09] MEDS ORDERED: PROPOFOL IV EMULSION 10 MG/ML 20 ML VIAL ONE (12:31)
[2021-11-09] MEDS ORDERED: LIDOCAINE HCL 2% LOCAL INJ 5 ML SDV VIAL INJ ONE (12:31)
[2021-11-09] MEDS ORDERED: PROPRANOLOL HCL 10 MG TAB PO ONE (18:15)
[2021-11-09 18:54] LABS: HEMATOCRIT 27.4 % (34.2-44.1); HEMOGLOBIN 8.5 g/dL (12.0-16.0)
[2021-11-10] VITALS (10 sets, daily range): BP systolic 88–123; BP diastolic 50–78
[2021-11-10] MEDS: OCTREOTIDE ACETATE 500 MCG in SODIUM CHLORIDE 0.9% 250ML 250 ML IV SCH ×3 (00:06→23:51)
[2021-11-10 00:32] LABS: HEMATOCRIT 29.8 % (34.2-44.1); HEMOGLOBIN 9.3 g/dL (12.0-16.0)
[2021-11-10] MEDS: Pantoprazole IV 40 MG in SODIUM CHLORIDE 0.9% 50ML 50 ML IV SCH ×5 (01:17→23:52)
[2021-11-10] MEDS ORDERED: PHYTONADIONE 10 MG/ML AMP IV ONE (01:45)
[2021-11-10] MEDS ORDERED: SODIUM CHLORIDE 0.9% 50ML 50 ML ONE (02:08)
[2021-11-10] MEDS: Morphine 2mg Syringe 2 MG/ML SYR IV PRN ×4 (02:40→20:28)
[2021-11-10 06:04] LABS: EOSINOPHILS # (AUTO) 0.1 (0.0-0.4); EOSINOPHILS % 3.4 % (0.0-6.0); HEMATOCRIT 31.5 % (34.2-44.1); HEMOGLOBIN 9.7 g/dL (12.0-16.0); LYMPHOCYTES # (AUTO) 0.5 (1.0-3.2); MEAN CORPUSCULAR HEMOGLOBIN 27.6 pg (28-32); MEAN CORPUSCULAR HGB CONC 30.8 g/dL (31-35); MEAN CORPUSCULAR VOLUME 89.5 fL (81-99); MONOCYTES # (AUTO) 0.5 (0.2-0.8); MONOCYTES % 12.3 % (4.4-11.3); NEUTROPHILS # (AUTO) 2.9 (2.1-6.9); NEUTROPHILS % 69.8 % (38.7-80.0); PLATELET COUNT 68 x10e3/uL (140-360); RED BLOOD COUNT 3.52 x10e6/uL (3.6-5.1); RED CELL DISTRIBUTION WIDTH 19.4 % (11.7-14.4)
[2021-11-10 06:19] LABS: INR 1.56
[2021-11-10 06:20] LABS: PARTIAL THROMBOPLASTIN TIME 36.9 seconds (23.8-35.5)
[2021-11-10 06:23] LABS: ANION GAP 10.1 mmol/L (8-16); CALCIUM 8.1 mg/dL (8.4-10.2); CREATININE, SERUM 0.78 mg/dL (0.57-1.11); POTASSIUM 4.1 mmol/L (3.5-5.1)
[2021-11-10] MEDS: CEFTRIAXONE 1 GM in SODIUM CHLORIDE 0.9% 50ML 50 ML IV SCH (07:56)
[2021-11-10] MEDS: PROPRANOLOL HCL 10 MG TAB PO SCH ×2 (09:30→18:00)
[2021-11-11] VITALS (8 sets, daily range): BP systolic 91–111; BP diastolic 52–65
[2021-11-11] MEDS ORDERED: SODIUM CHLORIDE 0.9% 100 ML ONE (00:07)
[2021-11-11] MEDS: Morphine 2mg Syringe 2 MG/ML SYR IV PRN ×2 (02:03→06:49)
[2021-11-11] MEDS ORDERED: ONDANSETRON HCL INJ 2MG/ML 2ML 2 MG/ML VIAL IV PRN (02:30)
[2021-11-11] MEDS ORDERED: DIPHENHYDRAMINE HCL 25 MG CAP PO PRN (02:45)
[2021-11-11] MEDS: Pantoprazole IV 40 MG in SODIUM CHLORIDE 0.9% 50ML 50 ML IV SCH ×3 (05:38→13:15)
[2021-11-11] MEDS: OCTREOTIDE ACETATE 500 MCG in SODIUM CHLORIDE 0.9% 250ML 250 ML IV SCH (05:39)
[2021-11-11 06:03] LABS: INR 1.83; PROTHROMBIN TIME 22.6 seconds (11.9-14.5)
[2021-11-11] MEDS ORDERED: PHYTONADIONE 10 MG/ML AMP IV ONE ×2 (07:15)
[2021-11-11] MEDS: CEFTRIAXONE 1 GM in SODIUM CHLORIDE 0.9% 50ML 50 ML IV SCH (09:13)
[2021-11-11] MEDS: PROPRANOLOL HCL 10 MG TAB PO SCH (09:14)
[2021-11-11] MEDS ORDERED: PHYTONADIONE 10MG/ML 20 MG in SODIUM CHLORIDE 0.9% 50ML 50 ML IV ONE (09:15)
== END 2021-11-11 18:06 | disposition home or self-care (01) | DRG 378 ==
LOC: ER 11:16 → ERHOLD 17:48 → IMCU 23:54
PROVIDERS: ADMIT Internal Medicine; ATTEND Internal Medicine
PROC: 02HV33Z Insertion of Infusion Device into Superior Vena Cava, Percutaneous Approach (ICD-10-PCS; principal; 2021-11-07)
PROC: 30243K1 Transfusion of Nonautologous Frozen Plasma into Central Vein, Percutaneous Approach (ICD-10-PCS; 2021-11-07)
PROC: 30243N1 Transfusion of Nonautologous Red Blood Cells into Central Vein, Percutaneous Approach (ICD-10-PCS; 2021-11-07)
PROC: 0DJ08ZZ Inspection of Upper Intestinal Tract, Via Natural or Artificial Opening Endoscopic (ICD-10-PCS; 2021-11-09)
DX: K92.2 Gastrointestinal hemorrhage, unspecified (principal); D62 Acute posthemorrhagic anemia; K76.6 Portal hypertension; N39.0 Urinary tract infection, site not specified; D68.9 Coagulation defect, unspecified; I85.10 Secondary esophageal varices without bleeding; K74.60 Unspecified cirrhosis of liver; B19.20 Unspecified viral hepatitis C without hepatic coma; K27.9 Peptic ulcer, site unspecified, unspecified as acute or chronic, without hemorrhage or perforation; K86.9 Disease of pancreas, unspecified; E11.9 Type 2 diabetes mellitus without complications; I86.4 Gastric varices; K31.89 Other diseases of stomach and duodenum
CPT/HCPCS: 36415; 36569; 43235; 71045; 74176; 80048; 80053; 81001; 82140; 82378; 82550; 82553; 83735; 84484; 85014; 85018; 85025; 85610; 85730; 86301; 86304; 86850; 86900; 86920; 87086; 93005; 94799; 97139; 99284; J0696; J1200; J2001; J2250; J2270; J2353; J2354; J2405; J3010; J3430; J7030; J7050; P9016; P9017; U0002

== ENCOUNTER 2021-11-26 20:33 | Inpatient (IN) | payer SELFPAY ==
[~2021-11-26] VITALS: Ht 162.6 cm; Wt 55.4 kg
[~2021-11-26 20:33] MED LIST changes: +CIPRO500 MG PO; +FUROSEMIDE40 MG PO; +LACTULOSE20 GM/30 M PO; +ONDANSETRON ODT4 MG PO; +PROTONIX20 MG PO; +SPIRONOLACTONE25 MG PO; +ULTRAM50 MG PO
[2021-11-26 21:45] LABS: BASOPHILS % 0.1 % (0.0-1.0); HEMATOCRIT 30.9 % (34.2-44.1); HEMOGLOBIN 9.4 g/dL (12.0-16.0); LYMPHOCYTES # (AUTO) 0.3 (1.0-3.2); LYMPHOCYTES % 2.5 % (18.0-39.1); MEAN CORPUSCULAR HEMOGLOBIN 27.9 pg (28-32); MEAN CORPUSCULAR HGB CONC 30.4 g/dL (31-35); MEAN CORPUSCULAR VOLUME 91.7 fL (81-99); MONOCYTES # (AUTO) 0.9 (0.2-0.8); MONOCYTES % 7.8 % (4.4-11.3); NEUTROPHILS # (AUTO) 10.6 (2.1-6.9); NEUTROPHILS % 88.7 % (38.7-80.0); PLATELET COUNT 61 x10e3/uL (140-360); RED BLOOD COUNT 3.37 x10e6/uL (3.6-5.1)
[2021-11-26] MEDS ORDERED: FENTANYL CITRATE/PF 100MCG/2 ML INJ IV ONE (21:45)
[2021-11-26 21:47] LABS: INR 1.71; PROTHROMBIN TIME 21.4 seconds (11.9-14.5)
[2021-11-26 21:48] LABS: PARTIAL THROMBOPLASTIN TIME 34.8 seconds (23.8-35.5)
[2021-11-26 21:55] LABS: ALBUMIN 2.2 g/dL (3.5-5.0); ALBUMIN/GLOBULIN RATIO 0.5 (0.8-2.0); ANION GAP 16.5 mmol/L (8-16); CALCIUM 8.4 mg/dL (8.4-10.2); CREATININE, SERUM 0.92 mg/dL (0.57-1.11); POTASSIUM 4.5 mmol/L (3.5-5.1)
[2021-11-26 22:01] LABS: CREATINE KINASE MB 21.2 ng/mL (0-5.0)
[2021-11-26] MEDS ORDERED: DEXTROSE 50% SYRINGE 50 ML IV STA (22:09)
[2021-11-26] MEDS ORDERED: DEXTROSE 50% SYRINGE 50 ML IV ONE (22:10)
[2021-11-26] MEDS ORDERED: CEFTRIAXONE 1 GM in SODIUM CHLORIDE 0.9% 50ML 50 ML IV ONE (22:30)
[2021-11-26] MEDS ORDERED: SODIUM CHLORIDE 0.9% 250ML 250 ML IV ONE (23:00)
[2021-11-26] MEDS ORDERED: SODIUM CHLORIDE 0.9% 1000ML 1,000 ML IV STA (23:37)
[2021-11-27] VITALS (7 sets, daily range): BP systolic 105–118; BP diastolic 53–72
[2021-11-27 01:58] LABS: COLOR,URINE AMBER (YELLOW)
[2021-11-27 01:59] LABS: AMPHETAMINES SCREEN,URINE NEGATIVE (NEGATIVE); BENZODIAZEPINES SCREEN,URINE NEGATIVE (NEGATIVE); CLARITY,URINE CLOUDY (CLEAR); KETONES,URINE 1+ (NEGATIVE); LEUKOCYTE ESTERASE ,URINE TRACE (NEGATIVE); NITRITE,URINE POSITIVE (NEGATIVE); PHENCYCLIDINE SCREEN,URINE NEGATIVE (NEGATIVE); PROTEIN,URINE DIPSTICK NEGATIVE (NEGATIVE); URINE UROBILINOGEN 0.2 mg/dL (0.2 - 1)
[2021-11-27 02:01] LABS: BACTERIA,URINE MANY /HPF; EPITHELIAL CELLS,URINE FEW /LPF
[2021-11-27] MEDS ORDERED: ULTRAM 50MG50 MG PO (04:36)
[2021-11-27 07:15] LABS: BASOPHILS % 0.2 % (0.0-1.0); EOSINOPHILS % 0.3 % (0.0-6.0); HEMATOCRIT 30.4 % (34.2-44.1); HEMOGLOBIN 9.4 g/dL (12.0-16.0); LYMPHOCYTES # (AUTO) 0.3 (1.0-3.2); LYMPHOCYTES % 2.9 % (18.0-39.1); MEAN CORPUSCULAR HEMOGLOBIN 28.4 pg (28-32); MEAN CORPUSCULAR HGB CONC 30.9 g/dL (31-35); MEAN CORPUSCULAR VOLUME 91.8 fL (81-99); MONOCYTES # (AUTO) 1.1 (0.2-0.8); MONOCYTES % 9.8 % (4.4-11.3); NEUTROPHILS # (AUTO) 9.8 (2.1-6.9); NEUTROPHILS % 86.1 % (38.7-80.0); PLATELET COUNT 61 x10e3/uL (140-360); RED BLOOD COUNT 3.31 x10e6/uL (3.6-5.1); RED CELL DISTRIBUTION WIDTH 24.9 % (11.7-14.4)
[2021-11-27 07:26] LABS: CALCIUM 7.9 mg/dL (8.4-10.2); CREATININE, SERUM 0.86 mg/dL (0.57-1.11)
[2021-11-27] MEDS ORDERED: SPIRONOLACTONE 25 MG TAB PO SCH (09:00)
[2021-11-27] MEDS ORDERED: FAMOTIDINE 20 MG/2 ML VIAL IV SCH (09:00)
[2021-11-27] MEDS: RIFAXIMIN 550 MG TABLET PO SCH ×2 (09:25→17:32)
[2021-11-27] MEDS: FUROSEMIDE INJ 10 MG/ML 2 ML VIAL IV SCH ×2 (09:25→17:32)
[2021-11-27] MEDS ORDERED: TRAMADOL HCL 50 MG TAB PO ONE (09:45)
[2021-11-27] MEDS ORDERED: CEPHALEXIN500 MG PO (12:05)
[2021-11-27] MEDS ORDERED: TRAMADOL HCL 50 MG TAB PO SCH (14:00)
[2021-11-27] MEDS ORDERED: FAMOTIDINE 20 MG TAB PO SCH (16:30)
[2021-11-28] MEDS ORDERED: BALSAM PERU/CASTOR OIL 60 GM OINT...G. TP SCH (09:00)
== END 2021-11-27 18:10 | disposition home or self-care (01) | DRG 433 ==
LOC: ER 20:54 → ERHOLD 23:36 → MED/SURG2 11-27 03:52
PROVIDERS: ADMIT Internal Medicine; ATTEND Internal Medicine
PROC: 0W9G3ZZ Drainage of Peritoneal Cavity, Percutaneous Approach (ICD-10-PCS; principal; 2021-11-27)
DX: K74.60 Unspecified cirrhosis of liver (principal); I85.00 Esophageal varices without bleeding; R18.8 Other ascites; N39.0 Urinary tract infection, site not specified; Z16.12 Extended spectrum beta lactamase (ESBL) resistance; I10 Essential (primary) hypertension; K27.9 Peptic ulcer, site unspecified, unspecified as acute or chronic, without hemorrhage or perforation; R16.1 Splenomegaly, not elsewhere classified; F17.200 Nicotine dependence, unspecified, uncomplicated; E16.2 Hypoglycemia, unspecified; B18.2 Chronic viral hepatitis C; B96.20 Unspecified Escherichia coli [E. coli] as the cause of diseases classified elsewhere
CPT/HCPCS: 36415; 49083; 70450; 71250; 72125; 72128; 72131; 74176; 74470; 80048; 80053; 80307; 81001; 82140; 82550; 82553; 82947; 83605; 83880; 84155; 84484; 85025; 85610; 85730; 87040; 87086; 87186; 93005; 99251; 99284; J0696; J1940; J3010; J7030; J7050; J7799; U0002